=== PATIENT | female | born 1940 | race Caucasian/White ===

== ENCOUNTER 2017-06-05 14:48 | Emergency (ER) | payer MEDICARE, OTHER, SELFPAY ==
[2017-06-05 14:50] VITALS: BP 145/71; PULSE 80; RESP 16; TEMP 37; O2SAT 100; BMI 24.5
--- NOTE | 2017-06-05 15:03 | HMH.EDGENADL ---
ED Disposition Clinical Impression: Chest pain, atypical, Palpitations Disposition: Home, Self-Care Condition on Discharge: Good Instructions: DI for Atypical Chest Pain, DI for Arrhythmias, DI for Palpitations Additional Instructions: Call Dr. TAO tomorrow to arrange appointment to be seen, earliest available. Additional instructions for CHEST PAIN: See your physician as soon as possible for further evaluation. Return immediately if worsening chest pain, prolonged palpitations, vomiting, shortness of breath, fever, coughing of blood. Referrals: Provider,Referral, MD [Primary Care Provider] - - Critical Care Critical Care Time: No Attestation: On , the high probability of a clinically significant, sudden or life threatening deterioration of the following system(s) required my full and direct attention, intervention and personal management. The time I documented below is in addition to time spent performing reported procedures but includes the following listed in this critical care notation. Medical Decision Making Vital Signs: 06/05/17 14:50 06/05/17 16:05 Temperature 98.6 F Temperature Source Oral Pulse Rate [Right Radial] 80 71 Respiratory Rate 16 18 Blood Pressure [Right Arm] 145/71 94/50 Blood Pressure Mean [Right Arm] 95 64 Blood Pressure Source [Right Arm] Automatic Cuff Automatic Cuff Blood Pressure Position [Right Arm] Supine Supine 02 Sat by Pulse Oximetry 100 85 L Oxygen Delivery Method Room Air Room Air - Lab Data Lab Results 06/05/17 15:25: WBC 6.8, RBC 4.19 L, Hgb 13.4, Hct 39.5, MCV 94.2, MCH 31.9 H, MCHC 33.9, RDW 12.3, Plt Count 153, MPV 9.8, Neut % (Auto) 51.7, Lymph % (Auto) 41.9, [place] % (Auto) 5.6, Eos % (Auto) 0.6, Baso % (Auto) 0.2, Neut # (Auto) 3.5, Lymph # (Auto) 2.9, [place] # (Auto) 0.4, Eos # (Auto) 0.0, Baso # (Auto) 0.0 06/05/17 15:25: Sodium 139, Potassium 3.9, Chloride 104, Carbon Dioxide 31, Anion Gap 7.9, BUN 17, Creatinine 0.74, Estimated Creat Clear 46, Estimated GFR 77, Est GFR ( Amer) 93, Glucose 181 H, Calcium 8.9, Total Bilirubin 1.0, AST 13 L, ALT 28, Alkaline Phosphatase 93, Total Creatine Kinase 69, CK-MB (CK-2) 0.9, CK-MB (CK-2) Rel Index 1.3, Troponin I < 0.02, Total Protein 7.1, Albumin 3.6, Globulin 3.5 H, Albumin/Globulin Ratio 1.0 L 06/05/17 18:05: Troponin I < 0.02 Result diagrams: 06/05/17 15:25 06/05/17 15:25 Orders (Tests/Meds): ORDERS Category Date Time Status Chest XR 2 view (NOT portable) [XR chest 2V] Stat Exams 06/05/17 16:03 Taken ECG Request by /Ml Stat Y 06/05/17 16:03 Ordered - Radiology Data #1 Image(s): Chest Image Reviewed: Yes I reviewed the patient's radiology results Linear scarring or atelectasis left base. Kyphosis. - ECG Data Tracing #1 EKG interpreted by Kade Stout MD: Rhythm: sinus Rate: 96 Lyer[place]: normal Ectopy: none Conduction: normal ST Segment Changes: Nonspecific T Wave Changes: none Q Waves: none No evidence of acute ischemia or injury - Ollie Inquiry Pt receiving controlled substance: No Medical Decision Making Narrative: I estimate there is LOW risk for PULMONARY EMBOLISM, ACUTE CORONARY SYNDROME, OR THORACIC AORTIC DISSECTION, thus I consider the discharge disposition reasonable. Advised patient to follow-up with her hematology nurse for the chest discomfort for further workup and also for the episodes of palpitations that she has had which may indicate a recurrence of atrial flutter or fibrillation. General Adult HPI - General Stated complaint: Chest Discomfort - History of Present Illness HPI narrative: The patient complains of a vague mild chest discomfort that she says most resembles a pressure in her left anterior chest that started at 10 a.m., coming in all day. Slight shortness of breath. No nausea or diaphoresis, but says that she has some heartburn. Her heart feels like it is pounding harder than usual today, but not rapid or erratic. She can
--- NOTE | 2017-06-05 16:03 | XR_ITS ---
XR chest 2V HISTORY: Chest pain ITS.REASON: cp ORDERING PHYSICIAN: Kade Stout MD PATIENT AGE: 76 years COMPARISON: 04/16/2007 FINDINGS: The cardiomediastinal silhouette and pulmonary vascularity are within normal limits. The lungs are clear without infiltrates, suspicious nodules, or pleural effusions. Thoracic kyphosis and ankylosis. IMPRESSION: No acute finding
[2017-06-05 16:05] VITALS: BP 94/50; PULSE 71; RESP 18; O2SAT 85
[2017-06-05 16:22] LABS: Basophils % 0.2 % (0.1-2.0); Eosinophils % 0.6 % (0.1-12.0); Hematocrit 39.5 % (37.0-47.0); Hemoglobin 13.4 g/dL (12.2-16.2); Lymphocytes # 2.9 K/mm3 (0.7-4.5); Lymphocytes % 41.9 K/mm3 (10-50); Mean Corpuscular HGB Conc 33.9 g/dL (31.8-35.4); Mean Corpuscular Hemoglobin 31.9 pg (27.0-31.2); Mean Corpuscular Volume 94.2 fl (81-99); Mean Platelet Volume 9.8 fl (7.4-10.4); Monocytes # 0.4 K/mm3 (0.1-1.0); Monocytes % 5.6 % (1.7-9.3); Neutrophils # 3.5 K/mm3 (1.8-7.8); Neutrophils % 51.7 % (37.0-80.0); Platelet Count 153 K/mm3 (142-424); Red Blood Count 4.19 M/mm3 (4.20-5.40); Red Cell Distribution Width 12.3 % (11.5-17.5); White Blood Count 6.8 K/mm3 (4.8-10.8)
[2017-06-05 16:55] LABS: Alanine Aminotransferase 28 U/L (12-78); Albumin Level 3.6 gm/dL (3.4-5.0); Alkaline Phosphatase 93 U/L (46-116); Anion Gap 7.9 mEq/L (5-15); Aspartate Amino Transferase 13 U/L (15-37); Blood Urea Nitrogen 17 mg/dL (7-18); CKMB Relative Index 1.3 U/L (0-4.0); Calcium 8.9 mg/dL (8.5-10.1); Carbon Dioxide 31 mmol/L (21.0-32.0); Chloride 104 mmol/L (98-107); Creatine Kinase 69 U/L (26-192); Creatine Kinase MB 0.9 mg/ml (0.0-3.6); Creatinine Clearance Estimated 46 mL/min (0-300); Creatinine,Serum 0.74 mg/dL (0.55-1.02); Estimated Glomerular Filt Rate 77 ml/min (>60); GFR (African American) 93 ML/MIN (>60); Globulin 3.5 gm/dl (1.3-3.2); Glucose 181 mg/dL (74-106); Potassium 3.9 mmoL/L (3.5-5.1); Sodium 139 mmol/L (136-145); Total Protein,Serum 7.1 gm/dL (6.4-8.2); Troponin I < 0.02 ng/ml (0.00-0.06)
[2017-06-05 18:38] LABS: Troponin I < 0.02 ng/ml (0.00-0.06)
[2017-06-05 19:19] VITALS: BP 137/75; PULSE 73; RESP 16; TEMP 37; O2SAT 100
== END 2017-06-05 19:20 | disposition home or self-care (01) ==
PROVIDERS: Emergency Provider Emergency Medicine
DX: R07.89 Other chest pain (principal); R00.2 Palpitations; I48.92 Unspecified atrial flutter; K30 Functional dyspepsia; I10 Essential (primary) hypertension; Z88.2 Allergy status to sulfonamides; Z79.82 Long term (current) use of aspirin
CPT/HCPCS: 36415; 71046; 80053; 82550; 82553; 84484; 85025; 93005; 99282

== ENCOUNTER → 2017-06-13 10:45 | Outpatient (CLI) | payer MEDICARE, OTHER, SELFPAY ==
--- NOTE | 2017-06-13 10:48 | CT_ITS ---
CT heart w calcium score CLINICAL INDICATION: Palpitations, dyspnea, chest pain ORDERING PHYSICIAN: Tarun Murray MD PATIENT AGE: 76 years COMPARISON: None FINDINGS: Coronary artery calcium score is 310. This indicates moderate plaque burden with high cardiovascular disease risk. Calcific plaque is present in the LAD, circumflex, and RCA. IMPRESSION: High cardiovascular disease risk with coronary artery calcium score of 310
== END ==
PROVIDERS: PCP Internal Medicine; Visit Provider Internal Medicine
DX: R07.89 Other chest pain (principal); R06.00 Dyspnea, unspecified; K30 Functional dyspepsia; R00.2 Palpitations
CPT/HCPCS: 75571

== ENCOUNTER → 2017-06-15 06:56 | Outpatient (CLI) | payer MEDICARE, OTHER, SELFPAY ==
--- NOTE | 2017-06-15 07:01 | NM_ITS ---
CARDIOLITE SPECT MYOCARDIAL PERFUSION SCAN, REST AND STRESS: EXERCISE STRESS [facility] RE[facility] QGS EF AND WALL MOTION EVALUATION: QPS - PERFUSION EVALUATION HISTORY: Chest pain, Palpitations, HTN DOSE: 10.78 mCi technetium 99m mibi intravenously at rest followed by 31.2 mCi technetium 99m mibi following the intravenous ministration of 0.4 mg of Lexiscan. Resting blood pressure is 157/72. Stress blood pressure 136/63. FINDINGS: Ejection fraction is calculated to be 75%. Stress images reveal mildly decreased activity in the anterior wall while rest images reveal uniform myocardial activity. Gated images calculated ejection fraction of 75% with normal wall motion IMPRESSION: Reversible ischemia in the anterior wall with normal ejection fraction normal wall motion. Given the anterior wall involvement, this is a high risk abnormal stress test .
--- NOTE | 2017-06-15 07:37 | CA_ITS ---
PROCEDURE: 2-D M-mode and color Doppler study INDICATIONS FOR THE TEST: Chest pain X COPD Heart Murmur Tobacco Smoking Palpitations Fatigue Syncope Edema HypertensionXDiabetes Mellitus Rheumatic Fever SOB NGYUEN Obesity HyperlipidemiaX Family History HDX Additional History PATIENT INFORMATION HEIGHT: 61 WEIGHT:127 GENDER: Female B/P:157/72 2-D/M-MODE INTERPRETATION: 2-D MEASUREMENTS OBSERVED VALUES IN CMS Right Ventricular Dimension (RVDd) 2.0 Interventricular Septum (Thickness)(IVsd) .9 Left Ventricular Internal Dimensions(LVIDd) 3.8 Left Ventricular Posterior Wall (Thickness)(LVPWd) 1.0 Aortic Root 3.1 Aortic Cusp Separation 1.8 Left Atrial Dimensions (LAD) 4.4 2D 1. Left atrium is mildly enlarged, left ventricle is normal size, there is mild qualitative concentric left ventricular hypertrophy, visually estimated ejection fraction 55% with no obvious regional wall motion abnormality. 2. The right atrium and right ventricle are normal size and contractility. 3. The aortic valve is minimally thickened and fibrosed. 4. The mitral and tricuspid valve are grossly normal. 5. The pulmonic valve is poorly visualized. 6. No significant pericardial effusion noted. DOPPLER INTERROGATION: Doppler interrogation of the aortic mitral and tricuspid valvular presence of trace aortic , mild mitral and tricuspid regurgitation. Tricuspid regurgitant jet velocity is insufficient for calculation of the right ventricular systolic pressure, grade 1 diastolic dysfunction seen without tissue Doppler evidence of raised left atrial pressure. CONCLUSION: 1. Mildly enlarged left atrium, normal left ventricular size, mild qualitative concentric left ventricular hypertrophy, visually estimated ejection fraction 55% with no obvious regional wall motion abnormality, grade 1 diastolic dysfunction seen without tissue Doppler evidence of raised left atrial pressure. 2. Trace aortic, mild mitral and tricuspid regurgitation. 3. No significant pericardial effusion noted.
--- NOTE | 2017-06-15 10:14 | HMH.ITSHM ---
losartin metoprolol pravastatin aaspirin
== END ==
PROVIDERS: PCP Family Medicine; Visit Provider Internal Medicine
DX: R07.9 Chest pain, unspecified; R06.00 Dyspnea, unspecified; R00.2 Palpitations
CPT/HCPCS: 78452; 93017; 93306; A9502; J2785

== ENCOUNTER 2017-06-27 07:38 | Day surgery (SDC) | payer MEDICARE, OTHER, SELFPAY ==
[2017-06-27] VITALS (13 sets, daily range): BP systolic 94–158; BP diastolic 50–84; PULSE 49–65; RESP 18–20; TEMP 36.7; O2SAT 98–100; BMI 25.6; BMI 24.0
--- NOTE | 2017-06-27 | IR_ITS ---
CARDIAC CATHETERIZATION DATE OF CATHETERIZATION:06/27/2017 10:00 AM PROCEDURES: 1. Left heart catheterization 2. Left ventriculogram 3. Selective coronary angiogram INDICATION FOR TEST: 1. Abnormal Myoview 2. High calcium score greater than 300 3. Angina pectoris 4. Horn artery disease Informed consent was obtained prior to the procedure. COMPLICATIONS: None ESTIMATED BLOOD LOSS: Less than 10 ml. TECHNIQUE: One percent lidocaine used to anesthetize the right anterior aspect of the wrist. The right radial artery was accessed via the Seldinger technique. A 6 Niuean sheath was placed in the right radial artery. 2.5 mg of verapamil, 800 mcg of nitroglycerin and 5000 U Heparin were given through the arterial sheath. The trap catheter was also used to perform left heart catheterization and left ventriculography. At the end of the procedure the patient was transferred to the post-op holding area in stable condition for arterial sheath removal. ANGIOGRAPHIC RESULTS: 1. The left main artery normal 2. The left anterior descending artery has proximal 20% stenoses mid vessel 30-40% stenosis along a tortuous bend 3. The circumflex artery nondominant with mild 10% luminal irregularities 4. The right coronary artery is dominant and has an ostial calcified 40% nonflow limiting stenosis with 20% mid vessel stenoses 5. The FINCH ventriculogram reveals 65% 6. The left ventricular end-diastolic pressure 10 mmHg IMPRESSION: 1. Mild to moderate nonflow limiting coronary artery disease as described above 2. Normal ejection fraction 3. Mildly elevated LVEDP PLAN: 1. Aggressive risk factor modification 2. Medical management
[2017-06-27 08:29] LABS: Basophils % 0.6 % (0.1-2.0); Eosinophils # 0.1 K/mm3 (0.0-0.4); Eosinophils % 0.9 % (0.1-12.0); Hematocrit 42.7 % (37.0-47.0); Lymphocytes # 2.7 K/mm3 (0.7-4.5); Lymphocytes % 44.7 K/mm3 (10-50); Mean Corpuscular HGB Conc 32.7 g/dL (31.8-35.4); Mean Corpuscular Hemoglobin 31.6 pg (27.0-31.2); Mean Corpuscular Volume 96.7 fl (81-99); Monocytes # 0.3 K/mm3 (0.1-1.0); Monocytes % 5.6 % (1.7-9.3); Neutrophils # 2.9 K/mm3 (1.8-7.8); Neutrophils % 48.2 % (37.0-80.0); Platelet Count 148 K/mm3 (142-424); Red Blood Count 4.42 M/mm3 (4.20-5.40); Red Cell Distribution Width 12.3 % (11.5-17.5)
[2017-06-27 09:15] LABS: Anion Gap 11.4 mEq/L (5-15); Blood Urea Nitrogen 12 mg/dL (7-18); Carbon Dioxide 29 mmol/L (21.0-32.0); Chloride 106 mmol/L (98-107); Creatinine Clearance Estimated 45 mL/min (0-300); Creatinine,Serum 0.73 mg/dL (0.55-1.02); Estimated Glomerular Filt Rate 78 ml/min (>60); GFR (African American) 94 ML/MIN (>60); Glucose 105 mg/dL (74-106); Potassium 3.4 mmoL/L (3.5-5.1); Sodium 143 mmol/L (136-145)
[2017-06-27 09:39] LABS: Calcium 9.5 mg/dL (8.5-10.1); Phosphorous 3.9 mg/dL (2.4-4.9)
[2017-06-27 09:40] LABS: Alanine Aminotransferase 33 U/L (12-78); Albumin Level 3.9 gm/dL (3.4-5.0); Albumin/Globulin Ratio 1.1 (1.1-1.8); Aspartate Amino Transferase 22 U/L (15-37); Cholesterol 176 mg/dL (140-200); Globulin 3.6 gm/dl (1.3-3.2); Total Protein,Serum 7.5 gm/dL (6.4-8.2); Triglycerides 84 mg/dL (30-200); VLDL Cholesterol 17 mg/dL (0-40)
[2017-06-27 09:41] LABS: Alkaline Phosphatase 92 U/L (46-116); Chol/HDL Ratio 3.1 (1-3.5); HDL Cholesterol 56 mg/dL (29-89); LDL Cholesterol 103 mg/dL (0-130); Thyroid Stimulating Hormone 0.47 uIU/ml (0.358-3.740)
[2017-06-27 10:11] LABS: Hemoglobin A1C 5.3 % (0.0-7.0)
[2017-06-28 10:16] LABS: Creatinine, Urine 100.6 mg/dL (Not Estab.); Microalbumin, Urine 4.5 ug/mL (Not Estab.)
[2017-06-29 15:21] LABS: Parathyroid Hormone Intact 30 pg/mL (15-65)
== END 2017-06-27 14:01 | disposition home or self-care (01) ==
LOC: CATHLAB 07:41
PROVIDERS: PCP Family Medicine; Visit Provider Internal Medicine
DX: I25.119 Atherosclerotic heart disease of native coronary artery with unspecified angina pectoris (principal); Z79.899 Other long term (current) drug therapy; I10 Essential (primary) hypertension; R94.39 Abnormal result of other cardiovascular function study
CPT/HCPCS: 80053; 80061; 82043; 82570; 83036; 83970; 84100; 84443; 85025; 93458; C1725; C1769; J1644; Q9967

== ENCOUNTER → 2017-10-03 08:44 | Outpatient (CLI) | payer MEDICARE, OTHER, SELFPAY ==
[2017-10-03 10:13] LABS: Alanine Aminotransferase 27 U/L (12-78); Alkaline Phosphatase 97 U/L (46-116); Aspartate Amino Transferase 18 U/L (15-37); Bilirubin,Direct 0.2 mg/dL (0.0-0.2); Bilirubin,Total 1.2 mg/dL (0.2-1.0); Chol/HDL Ratio 3.7 (1-3.5); Cholesterol 190 mg/dL (140-200); HDL Cholesterol 52 mg/dL (29-89); LDL Cholesterol 123 mg/dL (0-130); Total Protein,Serum 7.3 gm/dL (6.4-8.2); Triglycerides 74 mg/dL (30-200); VLDL Cholesterol 15 mg/dL (0-40)
== END ==
PROVIDERS: PCP Family Medicine; Visit Provider Internal Medicine Cardiovascular Disease
DX: I25.10 Atherosclerotic heart disease of native coronary artery without angina pectoris (principal); E78.5 Hyperlipidemia, unspecified
CPT/HCPCS: 36415; 80061; 80076

== ENCOUNTER → 2017-10-23 11:39 | Outpatient (CLI) | payer MEDICARE, OTHER, SELFPAY ==
--- NOTE | 2017-10-23 11:44 | XR_ITS ---
XR knee RT 3V HISTORY: ITS.REASON: RT KNEE PAIN ORDERING PHYSICIAN: Israel Blanco MD PATIENT AGE: 77 years COMPARISON: None FINDINGS: Mild to moderate osteoarthritic changes involve the medial compartment with mild osteoarthritic changes of the patellofemoral joint. No fracture or dislocation. No lytic or blastic change. Generalized vascular calcification noted. IMPRESSION: Osteoarthritis
== END ==
PROVIDERS: PCP Family Medicine; Visit Provider Family Medicine
DX: M25.561 Pain in right knee (principal)
CPT/HCPCS: 73562

== ENCOUNTER → 2017-11-19 08:47 | Outpatient (CLI) | payer MEDICARE, OTHER, SELFPAY ==
[2017-11-19 10:21] LABS: Alanine Aminotransferase 29 U/L (12-78); Alkaline Phosphatase 103 U/L (46-116); Aspartate Amino Transferase 17 U/L (15-37); Bilirubin,Direct 0.2 mg/dL (0.0-0.2); Bilirubin,Indirect 1.2 mg/dL (0.0-0.9); Chol/HDL Ratio 3.6 (1-3.5); Cholesterol 194 mg/dL (140-200); HDL Cholesterol 54 mg/dL (29-89); LDL Cholesterol 124 mg/dL (0-130); Total Protein,Serum 7.3 gm/dL (6.4-8.2); Triglycerides 81 mg/dL (30-200); VLDL Cholesterol 16 mg/dL (0-40)
[2017-11-19 10:26] LABS: Bilirubin,Total 1.4 mg/dL (0.2-1.0)
[2017-11-19 14:14] LABS: Lactate Dehydrogenase 176 U/L (82-234)
[2017-11-22 07:02] LABS: Haptoglobin 177 mg/dL (34-200)
== END ==
PROVIDERS: Physician Assistant; Visit Provider Internal Medicine Cardiovascular Disease
DX: R07.89 Other chest pain (principal); E78.5 Hyperlipidemia, unspecified; I25.10 Atherosclerotic heart disease of native coronary artery without angina pectoris; Z87.898 Personal history of other specified conditions
CPT/HCPCS: 36415; 80061; 80076; 83010; 83615

== ENCOUNTER → 2018-01-23 08:47 | Outpatient (CLI) | payer MEDICARE, OTHER, SELFPAY ==
[2018-01-23 10:17] LABS: Alanine Aminotransferase 28 U/L (12-78); Albumin Level 3.9 gm/dL (3.4-5.0); Alkaline Phosphatase 105 U/L (46-116); Aspartate Amino Transferase 20 U/L (15-37); Bilirubin,Direct 0.2 mg/dL (0.0-0.2); Bilirubin,Indirect 1.2 mg/dL (0.0-0.9); Bilirubin,Total 1.4 mg/dL (0.2-1.0); Chol/HDL Ratio 3.1 (1-3.5); Cholesterol 178 mg/dL (140-200); HDL Cholesterol 57 mg/dL (29-89); LDL Cholesterol 109 mg/dL (0-130); Triglycerides 62 mg/dL (30-200); VLDL Cholesterol 12 mg/dL (0-40)
== END ==
PROVIDERS: PCP Family Medicine; Visit Provider Physician Assistant
DX: E78.5 Hyperlipidemia, unspecified (principal); I25.10 Atherosclerotic heart disease of native coronary artery without angina pectoris; R06.00 Dyspnea, unspecified; Z87.898 Personal history of other specified conditions
CPT/HCPCS: 36415; 80061; 80076

== ENCOUNTER → 2018-07-04 08:28 | Outpatient (CLI) | payer MEDICARE, OTHER, SELFPAY ==
[2018-07-04 08:55] LABS: Basophils % 0.3 % (0.1-2.0); Eosinophils # 0.1 K/mm3 (0.0-0.4); Hematocrit 43.4 % (37.0-47.0); Hemoglobin 14.3 g/dL (12.2-16.2); Lymphocytes % 38.2 % (10-50); Mean Corpuscular Hemoglobin 32.5 pg (27.0-31.2); Mean Corpuscular Volume 98.5 fl (81-99); Mean Platelet Volume 10.5 fl (7.4-10.4); Monocytes # 0.4 K/mm3 (0.1-1.0); Monocytes % 6.6 % (1.7-9.3); Neutrophils # 2.8 K/mm3 (1.8-7.8); Neutrophils % 53.8 % (37.0-80.0); Platelet Count 136 K/mm3 (142-424); Red Blood Count 4.41 M/mm3 (4.20-5.40); Red Cell Distribution Width 12.8 % (11.5-17.5); White Blood Count 5.2 K/mm3 (4.8-10.8)
[2018-07-04 09:19] LABS: Alanine Aminotransferase 31 U/L (12-78); Albumin/Globulin Ratio 1.3 (1.1-1.8); Alkaline Phosphatase 95 U/L (46-116); Anion Gap 11.9 mEq/L (5-15); Aspartate Amino Transferase 20 U/L (15-37); Bilirubin,Total 1.3 mg/dL (0.2-1.0); Blood Urea Nitrogen 18 mg/dL (7-18); Calcium 9.6 mg/dL (8.5-10.1); Carbon Dioxide 29 mmol/L (21.0-32.0); Chloride 106 mmol/L (98-107); Chol/HDL Ratio 2.5 (1-3.5); Cholesterol 150 mg/dL (140-200); Creatinine,Serum 0.67 mg/dL (0.55-1.02); Estimated Glomerular Filt Rate 86 ml/min (>60); GFR (African American) 104 ML/MIN (>60); Globulin 3.2 gm/dl (1.3-3.2); Glucose 101 mg/dL (74-106); HDL Cholesterol 59 mg/dL (29-89); Hemoglobin A1C 5.7 % (0.0-7.0); LDL Cholesterol 82 mg/dL (0-130); Phosphorous 4.2 mg/dL (2.4-4.9); Potassium 3.9 mmoL/L (3.5-5.1); Sodium 143 mmol/L (136-145); Thyroid Stimulating Hormone 1.57 uIU/ml (0.358-3.740); Total Protein,Serum 7.2 gm/dL (6.4-8.2); Triglycerides 46 mg/dL (30-200); VLDL Cholesterol 9 mg/dL (0-40)
[2018-07-04 09:38] LABS: Creatinine,Urine Random 126 mg/dL (20-320)
[2018-07-05 13:14] LABS: Parathyroid Hormone Intact 36 pg/mL (15-65)
== END ==
PROVIDERS: Visit Provider Family Medicine
DX: E78.00 Pure hypercholesterolemia, unspecified (principal); R73.01 Impaired fasting glucose; N28.9 Disorder of kidney and ureter, unspecified; I10 Essential (primary) hypertension
CPT/HCPCS: 36415; 80053; 80061; 82043; 82570; 83036; 83970; 84100; 84443; 85025

== ENCOUNTER → 2018-09-18 08:58 | Outpatient (CLI) | payer MEDICARE, OTHER, SELFPAY ==
[2018-09-18 10:16] LABS: Alanine Aminotransferase 39 U/L (12-78); Albumin Level 3.8 gm/dL (3.4-5.0); Alkaline Phosphatase 88 U/L (46-116); Aspartate Amino Transferase 25 U/L (15-37); Bilirubin,Direct 0.2 mg/dL (0.0-0.2); Bilirubin,Indirect 1.1 mg/dL (0.0-0.9); Bilirubin,Total 1.3 mg/dL (0.2-1.0); Chol/HDL Ratio 2.6 (1-3.5); Cholesterol 147 mg/dL (140-200); HDL Cholesterol 56 mg/dL (29-89); LDL Cholesterol 81 mg/dL (0-130); Total Protein,Serum 6.8 gm/dL (6.4-8.2); Triglycerides 52 mg/dL (30-200); VLDL Cholesterol 10 mg/dL (0-40)
== END ==
PROVIDERS: Visit Provider Internal Medicine Cardiovascular Disease
DX: E78.5 Hyperlipidemia, unspecified (principal)
CPT/HCPCS: 36415; 80061; 80076

== ENCOUNTER → 2019-06-02 09:03 | Outpatient (CLI) | payer MEDICARE, OTHER, SELFPAY ==
[2019-06-02 09:34] LABS: Basophils % 0.5 % (0.1-2.0); Eosinophils # 0.1 K/mm3 (0.0-0.4); Hematocrit 44.5 % (37.0-47.0); Hemoglobin 14.7 g/dL (12.2-16.2); Lymphocytes # 1.9 K/mm3 (0.7-4.5); Lymphocytes % 28.2 % (10-50); Mean Corpuscular Volume 96.9 fl (81-99); Mean Platelet Volume 10.1 fl (7.4-10.4); Monocytes # 0.3 K/mm3 (0.1-1.0); Monocytes % 4.4 % (1.7-9.3); Neutrophils # 4.5 K/mm3 (1.8-7.8); Neutrophils % 65.9 % (37.0-80.0); Platelet Count 136 K/mm3 (142-424); Red Cell Distribution Width 12.5 % (11.5-17.5); White Blood Count 6.9 K/mm3 (4.8-10.8)
[2019-06-02 10:40] LABS: Hemoglobin A1C 5.3 % (0.0-7.0)
[2019-06-02 10:46] LABS: Alanine Aminotransferase 30 U/L (9-52); Albumin Level 4.2 g/dL (3.4-5.0); Albumin/Globulin Ratio 1.3 (1.1-1.8); Alkaline Phosphatase 98 U/L (46-116); Aspartate Amino Transferase 26 U/L (15-37); Bilirubin,Total 1.2 mg/dL (0.2-1.0); Blood Urea Nitrogen 17 mg/dL (7-18); Calcium 9.8 mg/dL (8.5-10.1); Carbon Dioxide 30 mmol/L (21.0-32.0); Chloride 107 mmol/L (98-107); Chol/HDL Ratio 2.5 (1-3.5); Cholesterol 148 mg/dL (140-200); Creatinine,Serum 0.72 mg/dL (0.55-1.02); Estimated Glomerular Filt Rate 79 ml/min (>60); GFR (African American) 95 ML/MIN (>60); Globulin 3.2 gm/dl (1.3-3.2); Glucose 101 mg/dL (74-106); HDL Cholesterol 60 mg/dL (29-89); LDL Cholesterol 77 mg/dL (0-130); Phosphorous 4.3 mg/dL (2.4-4.9); Sodium 146 mmol/L (137-145); Thyroid Stimulating Hormone 0.77 uIU/ml (0.358-3.740); Total Protein,Serum 7.4 g/dL (6.4-8.2); Triglycerides 54 mg/dL (30-200); VLDL Cholesterol 11 mg/dL (0-40)
[2019-06-03 10:24] LABS: Microalbumin, Urine 8.2 ug/mL (Not Estab.)
[2019-06-06 07:51] LABS: Parathyroid Hormone Intact 19 pg/mL (15-65)
== END ==
PROVIDERS: Visit Provider Family Medicine
DX: N28.9 Disorder of kidney and ureter, unspecified (principal); E78.00 Pure hypercholesterolemia, unspecified; I10 Essential (primary) hypertension; R73.01 Impaired fasting glucose
CPT/HCPCS: 36415; 80053; 80061; 82043; 82570; 83036; 83970; 84100; 84443; 85025

== ENCOUNTER → 2019-06-19 19:27 | Outpatient (CLI) | payer MEDICARE, OTHER, SELFPAY | PROVIDERS: Visit Provider Nurse Practitioner | DX: B35.1 Tinea unguium (principal) | CPT/HCPCS: 87102; 87206; 87220 ==

== ENCOUNTER 2019-09-01 18:31 | Emergency (ER) | payer MEDICARE, OTHER, SELFPAY ==
[2019-09-01 18:32] VITALS: BP 135/86; PULSE 106; RESP 15; TEMP 36.8; O2SAT 96; BMI 21.4
--- NOTE | 2019-09-01 18:38 | ECG_ITS ---
APPROVED REPORT Exam: Resting ECG HR:104 bpm ECG Measurements Heart Rate 104 AXES QRSd 78 QRS 60 QT 314 T 22 QTc 412 <Conclusion> Atrial fibrillation with rapid ventricular response ST & T wave abnormality, consider inferior ischemia or digitalis effect ST & T wave abnormality, consider anterolateral ischemia or digitalis effect Abnormal ECG Electronically signed by : Eber Escobedo, 09/02/2019 08:50:44
--- NOTE | 2019-09-01 18:43 | XR_ITS ---
PROCEDURE: XR CHEST 2V CLINICAL HISTORY: fluttering Heart fluttering COMPARISON: CXR2V XR chest 2V from 06/05/2017 FINDINGS: The cardiomediastinal silhouette and pulmonary vascularity are within normal limits. The lungs are clear without infiltrates, suspicious nodules, or pleural effusions. Dextroscoliosis of the thoracic spine with levoscoliosis of the lumbar spine and thoracic kyphosis IMPRESSION: No acute finding Dictated by: Rodríguez Lopez MD 09/01/2019 20:52 Electronically signed by Rodríguez Lopez MD in [place] 09/01/2019 20:52
[2019-09-01 18:52] LABS: Basophils # 0.1 K/mm3 (0-0.2); Basophils % 1.1 % (0.1-2.0); Eosinophils # 0.1 K/mm3 (0.0-0.4); Eosinophils % 1.1 % (0.1-12.0); Hemoglobin 14.6 g/dL (12.2-16.2); Lymphocytes # 3.4 K/mm3 (0.7-4.5); Lymphocytes % 37.7 % (10-50); Mean Corpuscular HGB Conc 33.1 g/dL (31.8-35.4); Mean Corpuscular Hemoglobin 31.5 pg (27.0-31.2); Mean Corpuscular Volume 95.1 fl (81-99); Monocytes # 0.5 K/mm3 (0.1-1.0); Monocytes % 5.7 % (1.7-9.3); Neutrophils # 4.9 K/mm3 (1.8-7.8); Neutrophils % 54.3 % (37.0-80.0); Platelet Count 156 K/mm3 (142-424); Red Blood Count 4.63 M/mm3 (4.20-5.40); Red Cell Distribution Width 12.8 % (11.5-17.5)
--- NOTE | 2019-09-01 18:53 | PC.NURSE ---
Pt with Rad.
[2019-09-01 19:02] LABS: Alanine Aminotransferase 28 U/L (12-78); Albumin Level 4.8 g/dl (3.5-5.0); Albumin/Globulin Ratio 1.5 (1.1-1.8); Alkaline Phosphatase 84 U/L (38-126); Anion Gap 10.6 mEq/L (5-15); Aspartate Amino Transferase 36 U/L (14-36); Bilirubin,Total 1.1 mg/dl (0.2-1.3); Blood Urea Nitrogen 25 mg/dl (7-17); Carbon Dioxide 27 mmol/L (22.0-30.0); Chloride 101 mmol/L (98-107); Creatinine Clearance Estimated 39 mL/min (50-200); Estimated Glomerular Filt Rate 61 ml/min (>60); GFR (African American) 73 ML/MIN (>60); Globulin 3.2 g/dL (1.3-3.2); Glucose 137 mg/dl (74-100); Potassium 3.6 mmoL/L (3.5-5.1); Sodium 135 mmol/L (136-145)
[2019-09-01 19:19] LABS: T4 (Thyroxine) 10.3 ug/dl (5.53-11.0)
[2019-09-01 19:21] VITALS: BP 128/97; PULSE 106; O2SAT 100
[2019-09-01 19:32] LABS: Thyroid Stimulating Hormone 1.93 uIU/mL (0.465-4.68); Troponin I < 0.01 ng/ml (0.00-0.034)
--- NOTE | 2019-09-01 19:39 | PC.NURSE ---
Dr Copeland spoke with Dr Murray
--- NOTE | 2019-09-01 19:44 | PC.NURSE ---
spoke with Dr. Murray. he stated to give pt 50mg metoprolol tatrate and he would see them in the office in the morning.
--- NOTE | 2019-09-01 19:44 | HMH.EDARPALP ---
ED Disposition Clinical Impression: Atrial fibrillation Disposition: Home, Self-Care Condition on Discharge: Good Additional Instructions: Please follow-up with Dr. Murray tomorrow morning at 8:30 in the morning. Referrals: Israel Blanco MD [Primary Care Provider] - - Critical Care Critical Care Time: No Attestation: On 09/01/19, the high probability of a clinically significant, sudden or life threatening deterioration of the following system(s) required my full and direct attention, intervention and personal management. The time I documented below is in addition to time spent performing reported procedures but includes the following listed in this critical care notation. Medical Decision Making - Medical Records Medical records reviewed: Yes: I reviewed the patient's medical records. - Ollie Inquiry Pt receiving controlled substance: No Vital Signs: 09/01/19 18:32 09/01/19 19:21 Temperature 98.2 F Temperature Source Oral Pulse Rate [Right] 106 H 106 H Respiratory Rate 15 Blood Pressure [Right Arm] 135/86 128/97 H Blood Pressure Mean [Right Arm] 102 107 Blood Pressure Source [Right Arm] Automatic Cuff Blood Pressure Position [Right Arm] Supine 02 Sat by Pulse Oximetry 96 100 Oxygen Delivery Method Room Air Room Air - Lab Data Lab results reviewed: Yes: I reviewed the patient's lab results. Lab Results 09/01/19 18:45: WBC 9.0, RBC 4.63, Hgb 14.6, Hct 44.0, MCV 95.1, MCH 31.5 H, MCHC 33.1, RDW 12.8, Plt Count 156, MPV 10.0, Neut % (Auto) 54.3, Lymph % (Auto) 37.7, [place] % (Auto) 5.7, Eos % (Auto) 1.1, Baso % (Auto) 1.1, Neut # (Auto) 4.9, Lymph # (Auto) 3.4, [place] # (Auto) 0.5, Eos # (Auto) 0.1, Baso # (Auto) 0.1 09/01/19 18:45: Sodium 135 L, Potassium 3.6, Chloride 101, Carbon Dioxide 27, Anion Gap 10.6, BUN 25 H, Creatinine 0.90, Estimated Creat Clear 39, Estimated GFR 61, Est GFR ( Amer) 73, Glucose 137 H, Calcium 10.0, Total Bilirubin 1.1, AST 36, ALT 28, Alkaline Phosphatase 84, Troponin I < 0.01, Total Protein 8.0, Albumin 4.8, Globulin 3.2, Albumin/Globulin Ratio 1.5, TSH 1.93, Thyroxine (T4) 10.3 Result diagrams: 09/01/19 18:45 09/01/19 18:45 Orders (Tests/Meds): ED MEDICATIONS Generic Name Dose Route Start Last Admin Trade Name Freq PRN Reason Stop Dose Admin Sodium Chloride 1,000 mls @ 999 mls/hr 09/01/19 18:45 09/01/19 18:45 Sod Chlor 0.9% 1000ml Bag IV 09/01/19 19:45 999 mls/hr .Q1H1M MAGDALENA Administration Discontinued Medications Generic Name Dose Route Start Last Admin Trade Name Freq PRN Reason Stop Dose Admin Metoprolol Tartrate 50 mg 09/01/19 19:43 Lopressor 50mg Tablet PO 09/01/19 19:44 ONCE ONE ORDERS Category Date Time Status XR chest 2V Stat Exams 09/01/19 18:43 Taken Troponin I Q3H Lab 09/01/19 21:45 Ordered Troponin I Q3H Lab 09/02/19 00:45 Ordered ECG Request by /Nse Stat Y 09/01/19 18:43 Ordered - Radiology Data #1 Image(s): Chest Preliminary Findings: Normal/NAD - ECG Data Tracing #1 I reviewed this ECG and interpreted as documented below: Normal Sinus Rhythm: No Arrhythmias present: afib Medical Decision Narrative: I spoke to Dr. Murray the phone about this patient and he recommended giving her a 50 mg metoprolol this evening and then have her follow-up with him in his office tomorrow at 830 for medication management for her A. fib. Arrhythmia/Palpitations HPI - General Chief Complaint: Arrhythmia/Palpitations Stated Complaint: irregular heart rate Time Seen by Provider: 09/01/19 19:20 Mode of Arrival: Ambulatory Source of Information: Patient Limitations: No Limitations - History of Present Illness HPI narrative: A pleasant 79-year-old female presents the ED complaining of heart fluttering. She states of the last 24 hours she is felt her heart rate a little elevated than usual. She states that she usually in the 70s and 80s but it has been about 1 10-1 20 most the d
[2019-09-01 19:46] VITALS: BP 105/65; PULSE 111; RESP 16; TEMP 36.9; O2SAT 100
== END 2019-09-01 19:59 | disposition home or self-care (01) ==
PROVIDERS: Emergency Provider Family Medicine; PCP Family Medicine
DX: I48.20 Chronic atrial fibrillation, unspecified (principal); E78.5 Hyperlipidemia, unspecified; I10 Essential (primary) hypertension; Z88.2 Allergy status to sulfonamides; Z79.899 Other long term (current) drug therapy
CPT/HCPCS: 71046; 80053; 84436; 84443; 84484; 85025; 93005; 96365; 99283

== ENCOUNTER → 2019-09-09 07:02 | Outpatient (CLI) | payer MEDICARE, OTHER, SELFPAY ==
--- NOTE | 2019-09-09 | CA_ITS ---
APPROVED REPORT Exam: Pharmacologic Technologist: Quyen Ford Ht: 5 ft 2 in Wt: 115 lbs BSA: 1.51 m2 HR: 85 bpm BP: 138/77 mmHg Indications: Shortness of Breath, Atrial Fibrillation Medical History Medications: Aspirin,,,,, Metoprolol,,,,, Atorvastatin,,,,, Apixaban,,,,, Stress Test Details Test: LEXISCAN HR Resting HR: 89 bpm Max Heart Rate (APMHR): 143 bpm Max HR Achieved: 140 bpm Target HR (85% APMHR): 121 bpm % of APMHR: 97 Recovery HR: 109 bpm BP Resting BP: 138.0/77.0 mmHg Max BP: 138.0/77.0 mmHg Recovery BP: 134.0/63.0 mmHg ECG Clinical Exercise duration: 04:14 min Highest Stage Achieved: Exercise capacity: 1.0 METs Stress ECG Conclusion Resting ECG: Atrial fibrillation, NS ST-T abnormalities. Symptoms: Shortness of air, malaise. No chest pain. Arrhythmias/Ectopy: Atrial fibrillation throughout. Occasional abberant beats vs. PVCs. ST-T Changes: Exaggeration of baseline ST abnormalities. Conclusion: Unremarkable Lexiscan stress. Myoview images reported separately. Electronically signed by : Malcolm Pettit, 09/09/2019 19:57:27
--- NOTE | 2019-09-09 07:04 | CA_ITS ---
APPROVED REPORT EXAM: Comprehensive 2D, Doppler, and color-flow Echocardiogram Ground Support Equipment Assembler: Evelin Varela CRT Ht: 5 ft 0 in Wt: 118lbs BSA: 1.49 BP: 148/49 mmHg Indications: htn, palp, sob, hld, afib, cad, dizziness 2D Dimensions IVSd 0.60 cm LVEF (Visual) 23.20 % PWd 2.20 cm LVDd 2.30 cm LVDs 2.50 cm LVOT 1.80 cm (M/F) 1.5-2.5 M-Mode Dimensions LA Diam 4.30 cm (1.9-4.0) Ao Diam 3.20 cm (2.0-3.7) AV Cusp 1.90 cm (1.5-2.6) Aortic Valve AoV Peak Tommy. 116.00 (50-130 cm/s) AO Peak GR. 5.00 mmHg Pulmonary Valve PA Accel Time 123.00 (>120 msec) Tricuspid Valve TR P. Velocity 185.00 cm/s RAP Estimate 10.00 mmHg RVSP 24.00 mmHg Left Ventricle Left atrium is mildly enlarged, left ventricle is normal size, mild concentric left ventricular hypertrophy, visually estimated ejection fraction of 55% with no regional wall motion abnormality, diastolic parameters are inconclusive. Right Ventricle Right atrium is mildly enlarged, right ventricle is normal size and contractility. Aortic Valve Aortic valve is minimally thickened and fibrosed. There is no aortic stenosis aortic insufficiency. Mitral Valve Mitral valve is grossly normal, there is mild mitral regurgitation. Tricuspid Valve Tricuspid valve is grossly normal, there is mild tricuspid regurgitation, tricuspid regurgitation jet velocity is inadequate for calculation of the right ventricular systolic pressure. Pulmonic Valve Pulmonic valve is poorly visualized. Great Vessels Aortic root is normal size. Pericardium No significant pericardial effusion noted. Conclusion 1. Biatrial enlargement, normal left ventricular size, mild concentric left ventricular hypertrophy, visually estimated ejection fraction 55% with no regional wall motion abnormality, diastolic parameters are inconclusive. 2. Mild mitral and tricuspid regurgitation. 3. No significant pericardial effusion noted. Electronically signed by : Malcolm Pettit, 09/09/2019 19:49:32
--- NOTE | 2019-09-09 07:08 | NM_ITS ---
APPROVED REPORT Exam: Nuclear Stress Test Indication: SOB, Palpitations, HTN, High cholesterol, Family history, AFIB Patient Location: Outpatient Stress Tech: Quyen Ford NM Tech:Alma Rosa Chan, ARRT, RT (R)(N) Ht: 5 ft 2 in Wt: 115 lbs Bra Size: 38B HR: 85 bpm BP: 138/77 mmHg BSA: 1.51 m2 BMI: 21.0 History: SOB, Palpitations, HTN, High cholesterol, Family history, AFIB Procedure: Patient received a 0.4 mg of intravenous Lexiscan, resting heart rate 85 bpm, resting blood pressure 138/77 mmHg, with Lexiscan maximum heart rate achived was 118 bpm which is Less than 85 % of the maximum predicted heart rate and blood pressure was 116/63 mmHg. With Lexiscan, patient denied any complaint of chest pain. Electrocardiogram Resting electrocardiogram showed atrial fibrillation, nonspecific ST-T changes, with Lexiscan there is less than 1.[address] segment depression noted from the baseline EKG. The EKG portion of the Lexiscan Myoview is nondiagnostic. Cardiac Stress and Resting SPECT Images: Cardiac Stress and Resting SPECT images were obtained using technetium 99m Myoview 32.0 mCi stress and 10.12 mCi at rest. Gated SPECT for analysis of segmental wall motion and calculation of the ejection fraction also done. Cardiac stress and resting SPECT images show mild reversible ischemia involving the anterior apical wall, computer derived ejection fraction is 61% with no regional wall motion abnormality, right ventricle is normal size and contractility. Conclusion: 1. The EKG portion of the Lexiscan Myoview is nondiagnostic. 2. Scintigraphic evidence of mild reversible ischemia involving the anterior apical wall, computer derived ejection fraction is 61% with no regional wall motion abnormality, right ventricle is normal size and contractility. 3. Abnormal Lexiscan Myoview study. Electronically signed by : Malcolm Pettit, 09/09/2019 19:59:43
--- NOTE | 2019-09-09 09:02 | HMH.ITSHM ---
Current Home Medications as stated by this patient Kiara Orozco or promotional representative. []METOPROLOL COENZYME CALCIUM ASA APIXABAN ATORVASTATIN
== END ==
PROVIDERS: PCP Family Medicine; Visit Provider Nurse Practitioner Family
DX: E78.5 Hyperlipidemia, unspecified (principal); I11.9 Hypertensive heart disease without heart failure; I25.10 Atherosclerotic heart disease of native coronary artery without angina pectoris; I48.0 Paroxysmal atrial fibrillation; R00.2 Palpitations
CPT/HCPCS: 78452; 93017; 93306; A9502; J2785

== ENCOUNTER → 2019-09-30 09:40 | Outpatient (POV) | payer MEDICARE, OTHER, SELFPAY | PROVIDERS: PCP Family Medicine; Visit Provider Physician Assistant | DX: Z00.00 Encounter for general adult medical examination without abnormal findings (principal) ==

== ENCOUNTER → 2019-11-11 09:46 | Outpatient (POV) | payer MEDICARE, OTHER, SELFPAY | PROVIDERS: PCP Family Medicine; Visit Provider Dermatology | DX: Z00.00 Encounter for general adult medical examination without abnormal findings (principal) ==

== ENCOUNTER 2020-04-12 15:29 | Emergency (ER) | payer MEDICARE, OTHER, SELFPAY ==
[2020-04-12] VITALS (8 sets, daily range): BP systolic 93–148; BP diastolic 49–76; PULSE 59–66; RESP 16; TEMP 36.8–36.9; O2SAT 97–100; BMI 21.0
--- NOTE | 2020-04-12 15:22 | ECG_ITS ---
APPROVED REPORT Exam: Resting ECG HR:61 bpm ECG Measurements Heart Rate 61 AXES AL 140 P 102 QRSd 76 QRS 54 QT 406 T 46 QTc 408 Conclusion Normal sinus rhythm Late r wave progression - unchanged from prior Abnormal ECG Electronically signed by : Wilner Hussein, 04/13/2020 19:56:35
--- NOTE | 2020-04-12 15:37 | XR_ITS ---
PROCEDURE: XR CHEST PORTABLE Referring Doctor: Radu Ashby Patient Age:79Y CLINICAL HISTORY: chest feels funny COMPARISON: CR CXR2V XR chest 2V from 06/05/2017 CR XR CHEST 2V from 09/01/2019 FINDINGS: AP portable upright CXR performed today compared to 09/01/19 P CXR and May 2017 two view CXR Today's chest film with slightly higher contrast technique which is 60 which markings but Left lung well expanded and clear Right lung but slight coarsening markings towards right base in part reflection technique overlying breast density. Most likely reflecting stable features but is difficult totally exclude a very subtle infiltrate towards right base but The upper lung [place] appear slightly hyperexpanded which may reflect emphysematous changes, heart, juliano, mediastinal structures unremarkable chest wall unremarkable. No pleural effusion or pneumothorax. Mild/moderate dextrocurvature lower T-spine again noted IMPRESSION: Nothing definitely acute. There is slight accentuation markings towards the right lung base which suspect combination of chronic changes, overlying breast, and of energy control officer technique today. However if respiratory symptoms or cough persist consider follow-up as it is difficult to exclude a very early infiltrate right base Dictated by: Lawrence Melendez MD 04/12/2020 20:43 Lawrence Melendez MD in [place] 04/12/2020 20:43
[2020-04-12 15:43] LABS: Basophils # 0.1 K/mm3 (0-0.2); Basophils % 0.6 % (0.1-2.0); Eosinophils # 0.1 K/mm3 (0.0-0.4); Eosinophils % 1.7 % (0.1-12.0); Hematocrit 45.8 % (37.0-47.0); Hemoglobin 15.6 g/dL (12.2-16.2); Lymphocytes # 2.7 K/mm3 (0.7-4.5); Lymphocytes % 36.3 % (10-50); Mean Corpuscular Hemoglobin 33.5 pg (27.0-31.2); Mean Corpuscular Volume 98.3 fl (81-99); Monocytes # 0.5 K/mm3 (0.1-1.0); Monocytes % 6.5 % (1.7-9.3); Platelet Count 121 K/mm3 (142-424); Red Blood Count 4.66 M/mm3 (4.20-5.40); Red Cell Distribution Width 13.3 % (11.5-17.5); White Blood Count 7.3 K/mm3 (4.8-10.8)
[2020-04-12 15:47] LABS: Chloride 103 mmol/L (98-107); Potassium 3.8 mmoL/L (3.5-5.1); Sodium 138 mmol/L (136-145)
[2020-04-12 15:50] LABS: Blood Urea Nitrogen 18 mg/dl (7-17); Creatinine Clearance Estimated 39 mL/min (50-200); Estimated Glomerular Filt Rate 97 ml/min (>60); GFR (African American) 117 ML/MIN (>60)
[2020-04-12 15:51] LABS: Anion Gap 11.8 mEq/L (5-15); Calcium 9.9 mg/dl (8.4-10.2); Carbon Dioxide 27 mmol/L (22.0-30.0); Glucose 147 mg/dl (74-100)
[2020-04-12 16:02] LABS: Troponin I < 0.01 ng/ml (0.00-0.034)
[2020-04-12 16:22] LABS: Magnesium 2.1 mg/dl (1.6-2.3)
[2020-04-12 16:26] LABS: D-Dimer 0.59 ug/mL (0.15-8.0)
--- NOTE | 2020-04-12 18:07 | HMH.EDARPALP ---
ED Disposition Clinical Impression: Palpitations, Orthostasis, Dehydration Disposition: Home, Self-Care Condition on Discharge: Good Instructions: DI for Orthostatic Hypotension Additional Instructions: Call your primary care Dr. Blanco's office tomorrow first thing in the morning and schedule a follow-up appointment within the next 2 days. Continue taking your medications as prescribed. Increase oral hydration and return to the ED for any new or worsening symptoms. Referrals: Israel Blanco MD [Primary Care Provider] - - Critical Care Critical Care Time: No Attestation: On 04/12/20, the high probability of a clinically significant, sudden or life threatening deterioration of the following system(s) required my full and direct attention, intervention and personal management. The time I documented below is in addition to time spent performing reported procedures but includes the following listed in this critical care notation. Medical Decision Making - Medical Records Medical records reviewed: Yes: I reviewed the patient's medical records. - Ollie Inquiry Pt receiving controlled substance: No Vital Signs: 04/12/20 15:30 04/12/20 15:32 04/12/20 16:00 Temperature 98.2 F Temperature Source Oral Pulse Rate Pulse Rate [Right] 63 66 59 L Respiratory Rate 16 Blood Pressure Blood Pressure [Right Arm] 148/76 H 148/76 H 137/63 Blood Pressure Mean [Right Arm] 100 100 87 Blood Pressure Source Blood Pressure Source [Right Arm] Automatic Cuff Automatic Cuff Automatic Cuff Blood Pressure Position Blood Pressure Position [Right Arm] Sitting Sitting Sitting 02 Sat by Pulse Oximetry 100 98 97 Oxygen Delivery Method Room Air Room Air Room Air 04/12/20 16:30 04/12/20 17:00 04/12/20 17:30 Temperature Temperature Source Pulse Rate Pulse Rate [Right] 63 62 60 Respiratory Rate Blood Pressure Blood Pressure [Right Arm] 147/72 H 106/49 L 109/52 L Blood Pressure Mean [Right Arm] 97 68 71 Blood Pressure Source Blood Pressure Source [Right Arm] Automatic Cuff Automatic Cuff Automatic Cuff Blood Pressure Position Blood Pressure Position [Right Arm] Sitting Sitting Sitting 02 Sat by Pulse Oximetry 99 98 100 Oxygen Delivery Method Room Air Room Air Room Air 04/12/20 18:00 04/12/20 18:25 Temperature 98.4 F Temperature Source Oral Pulse Rate 62 Pulse Rate [Right] 59 L Respiratory Rate 16 Blood Pressure 110/70 Blood Pressure [Right Arm] 93/50 L Blood Pressure Mean [Right Arm] 64 Blood Pressure Source Automatic Cuff Blood Pressure Source [Right Arm] Automatic Cuff Blood Pressure Position Sitting Blood Pressure Position [Right Arm] Sitting 02 Sat by Pulse Oximetry 97 Oxygen Delivery Method Room Air Room Air - Lab Data Lab Results 04/12/20 15:20: WBC 7.3, RBC 4.66, Hgb 15.6, Hct 45.8, MCV 98.3, MCH 33.5 H, MCHC 34.0, RDW 13.3, Plt Count 121 L, MPV 10.0, Neut % (Auto) 55.0, Lymph % (Auto) 36.3, [place] % (Auto) 6.5, Eos % (Auto) 1.7, Baso % (Auto) 0.6, Neut # (Auto) 4.0, Lymph # (Auto) 2.7, [place] # (Auto) 0.5, Eos # (Auto) 0.1, Baso # (Auto) 0.1 04/12/20 15:20: Sodium 138, Potassium 3.8, Chloride 103, Carbon Dioxide 27, Anion Gap 11.8, BUN 18 H, Creatinine 0.60, Estimated Creat Clear 39, Estimated GFR 97, Est GFR ( Amer) 117, Glucose 147 H, Calcium 9.9, Troponin I < 0.01 04/12/20 15:20: D-Dimer 0.59 04/12/20 15:20: Magnesium 2.1 Result diagrams: 04/12/20 15:20 04/12/20 15:20 Orders (Tests/Meds): ED MEDICATIONS Discontinued Medications Generic Name Dose Route Start Last Admin Trade Name Duaneq PRN Reason Stop Dose Admin Sodium Chloride 500 mls @ 999 mls/hr 04/12/20 16:00 04/12/20 16:44 Sod Chlor 0.9% 1000ml Bag IV 04/12/20 16:30 999 mls/hr .Q31M MAGDALENA Administration - Radiology Data #1 Image(s): Chest Image Reviewed: Yes I reviewed the patient's radiology image Preliminary Findings: Normal/NAD (Right lower lobe atelectasis but
--- NOTE | 2020-04-12 18:09 | PC.NURSE ---
speaking with Dr. Rodríguez
--- NOTE | 2020-04-12 22:52 | ECG_ITS ---
APPROVED REPORT Exam: Resting ECG HR:65 bpm ECG Measurements Heart Rate 65 AXES [place] 136 P 10 QRSd 82 QRS 61 QT 396 T 48 QTc 411 Conclusion Normal sinus rhythm normal ECG Electronically signed by : Wilner Hussein, 04/13/2020 19:54:42
== END 2020-04-12 18:27 | disposition home or self-care (01) ==
PROVIDERS: Emergency Provider Student in an Organized Health Care Education/Training Program; PCP Family Medicine
DX: I95.1 Orthostatic hypotension (principal); R00.2 Palpitations; E86.0 Dehydration; I48.20 Chronic atrial fibrillation, unspecified; I10 Essential (primary) hypertension; E78.5 Hyperlipidemia, unspecified; Z88.2 Allergy status to sulfonamides; Z79.899 Other long term (current) drug therapy
CPT/HCPCS: 71045; 80048; 83735; 84484; 85025; 85378; 93005; 96365; 99283

== ENCOUNTER 2020-04-12 22:43 | Emergency (ER) | payer MEDICARE, OTHER, SELFPAY ==
[2020-04-12 22:44] VITALS: BP 157/76; PULSE 69; RESP 16; TEMP 36.7; O2SAT 98; BMI 27.4
--- NOTE | 2020-04-12 23:08 | HMH.EDGENADL ---
ED Disposition Clinical Impression: PAF (paroxysmal atrial fibrillation) Disposition: Home, Self-Care Condition on Discharge: Good Additional Instructions: Follow up with scrubber machine tender as an outpatient. If unable to see scrubber machine tender within the next week, arrange appointment with PCP. Continue to take metoprolol as previously prescribed. Referrals: Israel Blanco MD [Primary Care Provider] - Malcolm Pettit MD [Staff Physician] - - Critical Care Critical Care Time: No Attestation: On 04/12/20, the high probability of a clinically significant, sudden or life threatening deterioration of the following system(s) required my full and direct attention, intervention and personal management. The time I documented below is in addition to time spent performing reported procedures but includes the following listed in this critical care notation. Medical Decision Making - Medical Records Medical records reviewed: Yes: I reviewed the patient's medical records. - Ollie Inquiry Pt receiving controlled substance: No Vital Signs: 04/12/20 22:44 Temperature 98.1 F Temperature Source Oral Pulse Rate [Apical] 69 Respiratory Rate 16 Blood Pressure [Right Arm] 157/76 H Blood Pressure Mean [Right Arm] 103 Blood Pressure Source [Right Arm] Automatic Cuff Blood Pressure Position [Right Arm] Supine 02 Sat by Pulse Oximetry 98 Oxygen Delivery Method Room Air - Lab Data Lab Results 04/12/20 22:55: WBC 8.4, RBC 4.88, Hgb 16.0, Hct 48.2 H, MCV 98.9, MCH 32.8 H, MCHC 33.2, RDW 13.2, Plt Count 135 L, MPV 9.9, Neut % (Auto) 49.4, Lymph % (Auto) 41.5, [place] % (Auto) 7.2, Eos % (Auto) 1.4, Baso % (Auto) 0.6, Neut # (Auto) 4.2, Lymph # (Auto) 3.5, [place] # (Auto) 0.6, Eos # (Auto) 0.1, Baso # (Auto) 0.1 04/12/20 22:55: Sodium 140, Potassium 3.5, Chloride 106, Carbon Dioxide 28, Anion Gap 9.5, BUN 14, Creatinine 0.70, Estimated Creat Clear 51, Estimated GFR 81, Est GFR ( Amer) 98, Glucose 118 H, Calcium 10.2, Troponin I < 0.01, Thyroxine (T4) 10.0 Result diagrams: 04/12/20 22:55 04/12/20 22:55 Orders (Tests/Meds): ORDERS Category Date Time Status Basic Metabolic Panel Stat Lab 04/12/20 22:55 Results T4 (Thyroxine) Stat Lab 04/12/20 22:55 Results Thyroid Stimulating Hormone Stat Lab 04/12/20 22:55 Results Troponin I Q3H Lab 04/13/20 02:15 Ordered Troponin I Q3H Lab 04/13/20 05:15 Ordered Troponin I Stat Lab 04/12/20 22:55 Results Medical Decision Narrative: 79-year-old female brought into emergency department for evaluation of palpitations. Hemodynamically stable nontoxic in appearance upon arrival. EKG obtained immediately upon arrival which was negative for ST elevation, ST depression, or T wave abnormalities concerning for ACS. EKG shows normal sinus rhythm with no PVCs or abnormal beats/rhythm. Differential diagnosis includes was not limited to intermittent A. fib, electrolyte abnormality causing PVCs, myocardial infarction, hypothyroidism. Labs obtained including CBC, BMP, TSH, T4, and troponin. Labs reviewed and significant for no acute abnormalities requiring correction at this time the emergency department. Troponin negative. Advised on strict return precautions and the importance of following up with scrubber machine tender within the next week. Provided patient with referral to cardiology. Patient voiced understanding and is safe to discharge at this time with family for transport. General Adult HPI - General Chief complaint: Arrhythmia/Palpitations Stated complaint: palpitations longer than 5 minutes Time Seen by Provider: 04/12/20 22:45 Mode of Arrival: Ambulatory Source of Information: Patient, Relative Limitations: No Limitations Description of Symptoms (Recalled from ER Triage Doc. by RN): Pt was seen today in this ED for same complaints of heart skipping beats and chest pressure that pt rates a 5 out of 10 that comes and goes. Pt states these symptoms have been going on for a month or so . P
[2020-04-12 23:14] VITALS: BP 119/62; PULSE 61; RESP 16; O2SAT 99
[2020-04-12 23:16] LABS: Basophils # 0.1 K/mm3 (0-0.2); Basophils % 0.6 % (0.1-2.0); Eosinophils # 0.1 K/mm3 (0.0-0.4); Eosinophils % 1.4 % (0.1-12.0); Hematocrit 48.2 % (37.0-47.0); Lymphocytes # 3.5 K/mm3 (0.7-4.5); Lymphocytes % 41.5 % (10-50); Mean Corpuscular HGB Conc 33.2 g/dL (31.8-35.4); Mean Corpuscular Hemoglobin 32.8 pg (27.0-31.2); Mean Corpuscular Volume 98.9 fl (81-99); Mean Platelet Volume 9.9 fl (7.4-10.4); Monocytes # 0.6 K/mm3 (0.1-1.0); Monocytes % 7.2 % (1.7-9.3); Neutrophils # 4.2 K/mm3 (1.8-7.8); Neutrophils % 49.4 % (37.0-80.0); Platelet Count 135 K/mm3 (142-424); Red Blood Count 4.88 M/mm3 (4.20-5.40); Red Cell Distribution Width 13.2 % (11.5-17.5); White Blood Count 8.4 K/mm3 (4.8-10.8)
[2020-04-12 23:18] LABS: Chloride 106 mmol/L (98-107); Sodium 140 mmol/L (136-145)
[2020-04-12 23:19] LABS: Potassium 3.5 mmoL/L (3.5-5.1)
[2020-04-12 23:21] LABS: Blood Urea Nitrogen 14 mg/dl (7-17); Creatinine Clearance Estimated 51 mL/min (50-200); Estimated Glomerular Filt Rate 81 ml/min (>60); GFR (African American) 98 ML/MIN (>60)
[2020-04-12 23:22] LABS: Anion Gap 9.5 mEq/L (5-15); Calcium 10.2 mg/dl (8.4-10.2); Carbon Dioxide 28 mmol/L (22.0-30.0); Glucose 118 mg/dl (74-100)
[2020-04-12 23:46] LABS: Troponin I < 0.01 ng/ml (0.00-0.034)
[2020-04-12 23:53] LABS: Thyroid Stimulating Hormone 2.64 uIU/mL (0.465-4.68)
[2020-04-13] VITALS: BP 136/66; PULSE 64; RESP 15; TEMP 36.6; O2SAT 99
== END 2020-04-13 | disposition home or self-care (01) ==
PROVIDERS: Emergency Provider Emergency Medicine; PCP Family Medicine
DX: I48.0 Paroxysmal atrial fibrillation (principal); I10 Essential (primary) hypertension; E78.5 Hyperlipidemia, unspecified; Z79.899 Other long term (current) drug therapy; Z88.2 Allergy status to sulfonamides
CPT/HCPCS: 71045; 80048; 83735; 84436; 84443; 84484; 85025; 85378; 93005; 96365; 99282; 99283

== ENCOUNTER → 2020-04-13 14:36 | Outpatient (CLI) | payer MEDICARE, OTHER, SELFPAY ==
[2020-04-13 15:22] LABS: Basophils % 0.6 % (0.1-2.0); Eosinophils # 0.1 K/mm3 (0.0-0.4); Hematocrit 45.5 % (37.0-47.0); Hemoglobin 15.3 g/dL (12.2-16.2); Lymphocytes # 2.2 K/mm3 (0.7-4.5); Lymphocytes % 29.6 % (10-50); Mean Corpuscular HGB Conc 33.6 g/dL (31.8-35.4); Mean Corpuscular Hemoglobin 33.1 pg (27.0-31.2); Mean Corpuscular Volume 98.5 fl (81-99); Mean Platelet Volume 11.3 fl (7.4-10.4); Monocytes # 0.5 K/mm3 (0.1-1.0); Monocytes % 5.9 % (1.7-9.3); Neutrophils # 4.8 K/mm3 (1.8-7.8); Platelet Count 141 K/mm3 (142-424); Red Blood Count 4.62 M/mm3 (4.20-5.40); Red Cell Distribution Width 13.8 % (11.5-17.5); White Blood Count 7.6 K/mm3 (4.8-10.8)
[2020-04-13 15:54] LABS: Anion Gap 10.3 mEq/L (5-15); Blood Urea Nitrogen 15 mg/dl (7-17); Calcium 10.2 mg/dl (8.4-10.2); Carbon Dioxide 31 mmol/L (22.0-30.0); Chloride 104 mmol/L (98-107); Estimated Glomerular Filt Rate 70 ml/min (>60); GFR (African American) 84 ML/MIN (>60); Glucose 112 mg/dl (74-100); Potassium 4.3 mmoL/L (3.5-5.1); Sodium 141 mmol/L (136-145)
[2020-04-13 16:28] LABS: Coronavirus 19 IgG Antibody Negative (Negative); Coronavirus 19 IgM Antibody Negative (Negative)
== END ==
PROVIDERS: Visit Provider Nurse Practitioner Family
DX: E78.5 Hyperlipidemia, unspecified (principal); I11.9 Hypertensive heart disease without heart failure; I25.10 Atherosclerotic heart disease of native coronary artery without angina pectoris; I48.0 Paroxysmal atrial fibrillation; R00.2 Palpitations; R94.30 Abnormal result of cardiovascular function study, unspecified
CPT/HCPCS: 36415; 80048; 85025; 86328; 93270

== ENCOUNTER 2020-04-15 08:59 | Day surgery (SDC) | payer MEDICARE, OTHER, SELFPAY ==
[2020-04-15] VITALS (11 sets, daily range): BP systolic 112–145; BP diastolic 42–84; PULSE 50–74; RESP 16–18; TEMP 36.5–36.6; O2SAT 99–100; BMI 21.4
--- NOTE | 2020-04-15 07:15 | IR_ITS ---
APPROVED REPORT Patient Location: Outpatient PROCEDURES Left heart catheterization Left ventriculogram Selective coronary angiogram INDICATION Known coronary artery disease, Abnormal Myoview Informed consent was obtained prior to the procedure. COMPLICATIONS none Estimated Blood Loss: less than 10 mls TECHNIQUE One percent lidocaine used to anesthetize the right anterior aspect of the wrist. The right radial artery was accessed via the Seldinger technique. A 6 [place] sheath was placed in the right radial artery. 2.5 mg of verapamil, 800 mcg of nitroglycerin, 1mg Lidocaine and 5000 U Heparin were given through the arterial sheath. The trap catheter was also used to perform left heart catheterization, left ventriculogram and selective coronary angiogram. At the end of the procedure the sheath was removed good hemostasis was achieved using Traclet band, patient was transferred to the postop holding area in stable condition. ANGIOGRAPHIC RESULTS The left main artery Has a smooth ostial 20% stenosis The left anterior descending artery Has mild 10 to 20% proximal and mid vessel atheromatous plaque. Externally calcium is identified however there is no significant intravascular intrusion of the calcium The circumflex artery Is nondominant and has an ostial proximal smooth 10 to 20% stenosis The right coronary artery Is dominant and has an ostial 30 to 40% nonflow-limiting stenosis The FINCH ventriculogram reveals Slightly hyperdynamic at 70% The left ventricular end-diastolic pressure 10 mmHg IMPRESSION Mild to moderate nonflow-limiting coronary disease in the ostial dominant right coronary artery which is unchanged from previous heart cath Slightly hyperdynamic ventricle Normal LVEDP PLAN 1. Medical management Electronically signed by : Tarun Murray, 04/15/2020 12:45:46
== END 2020-04-15 15:37 | disposition home or self-care (01) ==
LOC: CATHLAB 09:00
PROVIDERS: PCP Family Medicine; Visit Provider Internal Medicine
DX: E78.5 Hyperlipidemia, unspecified (principal); I11.9 Hypertensive heart disease without heart failure; I25.10 Atherosclerotic heart disease of native coronary artery without angina pectoris; I48.0 Paroxysmal atrial fibrillation; R00.2 Palpitations; R94.30 Abnormal result of cardiovascular function study, unspecified; Z82.49 Family history of ischemic heart disease and other diseases of the circulatory system; Z88.2 Allergy status to sulfonamides; Z88.0 Allergy status to penicillin; Z79.01 Long term (current) use of anticoagulants; Z79.899 Other long term (current) drug therapy
CPT/HCPCS: 93458; 99152; C1725; C1769; J1644; Q9967

== ENCOUNTER 2020-10-20 18:41 | Emergency (ER) | payer MEDICARE, OTHER, SELFPAY ==
[2020-10-20 18:50] VITALS: BP 155/72; PULSE 61; RESP 17; TEMP 36.7; O2SAT 100; BMI 21.0
--- NOTE | 2020-10-20 18:51 | ECG_ITS ---
APPROVED REPORT Exam: Resting ECG HR:61 bpm ECG Measurements Heart Rate 61 AXES [place] 144 P 46 QRSd 78 QRS 53 QT 398 T 41 QTc 400 Conclusion Normal sinus rhythm Normal ECG Electronically signed by : Wilner Hussein, 10/21/2020 17:42:39
[2020-10-20 19:29] VITALS: BP 139/61; PULSE 57; RESP 17; O2SAT 99
[2020-10-20 19:32] LABS: Basophils % 0.6 % (0.1-2.0); Eosinophils % 0.5 % (0.1-12.0); Hemoglobin 14.2 g/dL (12.2-16.2); Lymphocytes % 43.5 % (10-50); Mean Corpuscular HGB Conc 33.8 g/dL (31.8-35.4); Mean Corpuscular Volume 94.7 fl (81-99); Mean Platelet Volume 10.1 fl (7.4-10.4); Monocytes # 0.4 K/mm3 (0.1-1.0); Monocytes % 6.2 % (1.7-9.3); Neutrophils # 3.4 K/mm3 (1.8-7.8); Neutrophils % 49.2 % (37.0-80.0); Platelet Count 127 K/mm3 (142-424); Red Blood Count 4.44 M/mm3 (4.20-5.40); Red Cell Distribution Width 13.2 % (11.5-17.5); White Blood Count 6.9 K/mm3 (4.8-10.8)
[2020-10-20 19:34] LABS: Chloride 103 mmol/L (98-107); Potassium 3.9 mmoL/L (3.5-5.1); Sodium 139 mmol/L (136-145)
[2020-10-20 19:36] LABS: Alanine Aminotransferase 25 U/L (12-78); Alkaline Phosphatase 90 U/L (38-126); Aspartate Amino Transferase 36 U/L (14-36); Bilirubin,Total 1.4 mg/dl (0.2-1.3); Blood Urea Nitrogen 19 mg/dl (7-17); Creatinine Clearance Estimated 38 mL/min (50-200); Estimated Glomerular Filt Rate 69 ml/min (>60); GFR (African American) 84 ML/MIN (>60)
--- NOTE | 2020-10-20 19:36 | XR_ITS ---
PROCEDURE INFORMATION: Exam: XR Chest Exam date and time: 10/20/2020 7:36 PM Age: 80 years old Clinical indication: Other: Arrythmia TECHNIQUE: Imaging protocol: XR of the chest. Views: 2 views. COMPARISON: CR XR CHEST PORTABLE 04/12/2020 3:59 PM FINDINGS: Lungs: Normal. Pleural spaces: Unremarkable. No pleural effusion. No pneumothorax. Heart/Mediastinum: Normal. Bones/joints: Multilevel thoracic spine degenerative disc space narrowing and osteophyte formation. Mild dextroscoliosis of the thoracic spine. IMPRESSION: No acute cardiopulmonary abnormality.
[2020-10-20 19:37] LABS: Albumin Level 4.5 g/dl (3.5-5.0); Albumin/Globulin Ratio 1.6 (1.1-1.8); Anion Gap 12.9 mEq/L (5-15); Calcium 9.4 mg/dl (8.4-10.2); Carbon Dioxide 27 mmol/L (22.0-30.0); Globulin 2.8 g/dL (1.3-3.2); Glucose 101 mg/dl (74-100); Total Protein,Serum 7.3 g/dl (6.3-8.2)
[2020-10-20 19:39] LABS: Microscopic, Urine URINE MICROSCOPIC (MICROSCOPIC)
[2020-10-20 19:45] VITALS: BP 139/61; PULSE 55; RESP 18; O2SAT 99
[2020-10-20 19:47] LABS: Magnesium 2.1 mg/dl (1.6-2.3)
[2020-10-20 19:54] LABS: Appearance,Urine CLEAR (Clear); Bilirubin,Urine Negative (Negative); Blood, Urine TRACE-I (Negative); Color,Urine STRAW (Yellow); Glucose,Urine (UA) Negative (Negative); Ketones,Urine Negative (Negative); Leukocyte Esterase,Urine 1+ (Negative); Nitrate,Urine Negative (Negative); Protein,Urine Negative (Negative); Specific Gravity, Urine <= 1.005 (1.005-1.030); Urobilinogen,Urine 0.2 EU/dl (0.2)
[2020-10-20 19:55] LABS: Troponin I < 0.01 ng/ml (0.00-0.034)
[2020-10-20 19:57] LABS: NT Pro Brain Natriuretic Pep. 484 pg/mL (0-450)
[2020-10-20 20:00] VITALS: BP 141/63; PULSE 56; RESP 17; O2SAT 98
--- NOTE | 2020-10-20 20:03 | HMH.EDGENADL ---
ED Disposition Clinical Impression: Palpitations Disposition: Home, Self-Care Condition on Discharge: Good Instructions: DI for Palpitations Additional Instructions: Follow-up with your primary care provider and press puller. Referrals: Israel Blanco MD [Primary Care Provider] - - Critical Care Critical Care Time: No Attestation: On 10/20/20, the high probability of a clinically significant, sudden or life threatening deterioration of the following system(s) required my full and direct attention, intervention and personal management. The time I documented below is in addition to time spent performing reported procedures but includes the following listed in this critical care notation. Medical Decision Making - Ollie Inquiry Pt receiving controlled substance: No Vital Signs: 10/20/20 18:50 10/20/20 19:29 Temperature 98.1 F Temperature Source Oral Pulse Rate 57 L Pulse Rate [Right] 61 Respiratory Rate 17 17 Blood Pressure 139/61 Blood Pressure [Right Arm] 155/72 H Blood Pressure Mean [Right Arm] 99 Blood Pressure Source [Right Arm] Automatic Cuff 02 Sat by Pulse Oximetry 100 99 Oxygen Delivery Method Room Air - Lab Data Lab Results 10/20/20 19:00: WBC 6.9, RBC 4.44, Hgb 14.2, Hct 42.0, MCV 94.7, MCH 32.0 H, MCHC 33.8, RDW 13.2, Plt Count 127 L, MPV 10.1, Neut % (Auto) 49.2, Lymph % (Auto) 43.5, [place] % (Auto) 6.2, Eos % (Auto) 0.5, Baso % (Auto) 0.6, Neut # (Auto) 3.4, Lymph # (Auto) 3.0, [place] # (Auto) 0.4, Eos # (Auto) 0.0, Baso # (Auto) 0.0 10/20/20 19:00: Sodium 139, Potassium 3.9, Chloride 103, Carbon Dioxide 27, Anion Gap 12.9, BUN 19 H, Creatinine 0.80, Estimated Creat Clear 38, Estimated GFR 69, Est GFR ( Amer) 84, Glucose 101 H, Calcium 9.4, Total Bilirubin 1.4 H, AST 36, ALT 25, Alkaline Phosphatase 90, Troponin I < 0.01, Total Protein 7.3, Albumin 4.5, Globulin 2.8, Albumin/Globulin Ratio 1.6 10/20/20 19:28: Magnesium 2.1, NT-Pro-B Natriuret Pep 484 H Result diagrams: 10/20/20 19:00 10/20/20 19:00 Orders (Tests/Meds): ORDERS Category Date Time Status XR chest 2V Stat Exams 10/20/20 19:36 Taken CRP [C-Reactive Protein] Stat Lab 10/20/20 19:00 Results Complete Blood Count Auto Diff Stat Lab 10/20/20 19:00 Results Comprehensive Metabolic Panel Stat Lab 10/20/20 19:00 Results Erythrocyte Sedimentation Rate Stat Lab 10/20/20 19:00 Results Procalcitonin Stat Lab 10/20/20 19:28 Received Troponin I Q3H Lab 10/20/20 22:30 Ordered Troponin I Q3H Lab 10/21/20 01:30 Ordered Troponin I Stat Lab 10/20/20 19:00 Results Urinalysis and Microscopic Stat Lab 10/20/20 19:28 Received - ECG Data Tracing #1 EKG interpreted by Kade Stout MD: Rhythm: sinus Rate: 61 [place]: normal Ectopy: none Conduction: normal ST Segment Changes: none T Wave Changes: none Q Waves: none No evidence of acute ischemia or injury Normal electrocardiogram General Adult HPI - General Chief complaint: Arrhythmia/Palpitations Stated complaint: abnormal heart beat Time Seen by Provider: 10/20/20 20:04 Mode of Arrival: Family Vehicle Limitations: No Limitations Description of Symptoms (Recalled from ER Triage Doc. by RN): Pt c/o feeling like her heart was racing and rubbing off and on . These symptoms began 2 days ago. Pt does have a h/o afib, she takes Eliquis and Metoprolol. Pt denies any SOB, dizziness, N/V, or chest pain. - History of Present Illness HPI narrative: History of palpitations. Denies chest pain or shortness of breath. States she has a history of atrial fibrillation. She feels better since arriving in the emergency department. Denies any other complaints. - Related Data Home Medications Medication Instructions Recorded Confirmed calcium citrate-vitamin D3 500 mg 1 tab PO BID 07/05/17 07/30/20 calcium-400 unit chewable tablet coenzyme Q10 100 mg capsule 100 mg PO DAILY 09/19/18 07/30/20 Atorvastatin Calcium [Lipitor 40mg 40 mg PO DAILY
[2020-10-20 20:24] LABS: C-Reactive Protein 0.6 mg/L (0-4)
[2020-10-20 20:30] VITALS: BP 139/68; PULSE 58; RESP 15; O2SAT 99
[2020-10-20 20:38] LABS: Bacteria,Urine Trace /lpf; RBC,Urine Occasional #/hpf (0-3)
[2020-10-20 20:43] VITALS: BP 139/68; PULSE 54; RESP 16; TEMP 36.8; O2SAT 99
[2020-10-20 20:58] LABS: Erythrocyte Sedimentation Rate 16 mm/hr (0-30)
[2020-10-20 21:07] LABS: Procalcitonin < 0.300 ng/mL (0.0-2.0)
== END 2020-10-20 20:48 | disposition home or self-care (01) ==
PROVIDERS: Emergency Medicine; Emergency Provider Emergency Medicine; PCP Family Medicine
DX: R00.2 Palpitations (principal); R06.82 Tachypnea, not elsewhere classified; I48.0 Paroxysmal atrial fibrillation; I10 Essential (primary) hypertension; E78.5 Hyperlipidemia, unspecified; Z79.899 Other long term (current) drug therapy
CPT/HCPCS: 71046; 80053; 81001; 83735; 83880; 84145; 84484; 85025; 85651; 86140; 87086; 93005; 99283

== ENCOUNTER → 2020-12-07 11:51 | Outpatient (CLI) | payer MEDICARE, OTHER, SELFPAY ==
[2020-12-07 11:56] LABS: Microscopic, Urine URINE MICROSCOPIC (MICROSCOPIC)
[2020-12-07 12:29] LABS: Basophils % 0.5 % (0.1-2.0); Eosinophils % 0.3 % (0.1-12.0); Hematocrit 44.5 % (37.0-47.0); Hemoglobin 14.7 g/dL (12.2-16.2); Lymphocytes # 1.9 K/mm3 (0.7-4.5); Lymphocytes % 28.6 % (10-50); Mean Corpuscular HGB Conc 33.1 g/dL (31.8-35.4); Mean Corpuscular Hemoglobin 32.6 pg (27.0-31.2); Mean Corpuscular Volume 98.5 fl (81-99); Mean Platelet Volume 10.8 fl (7.4-10.4); Monocytes # 0.3 K/mm3 (0.1-1.0); Monocytes % 4.7 % (1.7-9.3); Neutrophils # 4.4 K/mm3 (1.8-7.8); Neutrophils % 65.9 % (37.0-80.0); Platelet Count 147 K/mm3 (142-424); Red Blood Count 4.51 M/mm3 (4.20-5.40); Red Cell Distribution Width 13.2 % (11.5-17.5); White Blood Count 6.7 K/mm3 (4.8-10.8)
[2020-12-07 14:08] LABS: Alanine Aminotransferase 29 U/L (12-78); Albumin Level 4.4 g/dl (3.5-5.0); Albumin/Globulin Ratio 1.5 (1.1-1.8); Alkaline Phosphatase 88 U/L (38-126); Anion Gap 14.8 mEq/L (5-15); Aspartate Amino Transferase 36 U/L (14-36); Bilirubin,Total 1.5 mg/dl (0.2-1.3); Blood Urea Nitrogen 16 mg/dl (7-17); Calcium 9.7 mg/dl (8.4-10.2); Carbon Dioxide 27 mmol/L (22.0-30.0); Chloride 103 mmol/L (98-107); Chol/HDL Ratio 2.6 (1-3.5); Cholesterol 179 mg/dl (140-200); Estimated Glomerular Filt Rate 81 ml/min (>60); GFR (African American) 98 ML/MIN (>60); Glucose 103 mg/dl (74-100); HDL Cholesterol 69 mg/dl (40-60); Phosphorous 4.1 mg/dl (2.5-4.5); Potassium 3.8 mmoL/L (3.5-5.1); Sodium 141 mmol/L (136-145); Total Protein,Serum 7.4 g/dl (6.3-8.2); Triglycerides 56 mg/dl (30-150); VLDL Cholesterol 11 mg/dL (0-40)
[2020-12-07 14:19] LABS: Direct LDL Cholesterol 87.45 mg/dL (100-129)
[2020-12-07 14:23] LABS: Appearance,Urine CLEAR (Clear); Bilirubin,Urine Negative (Negative); Blood, Urine TRACE-I (Negative); Color,Urine YELLOW (Yellow); Glucose,Urine (UA) Negative (Negative); Ketones,Urine Negative (Negative); Leukocyte Esterase,Urine Negative (Negative); Nitrate,Urine Negative (Negative); Protein,Urine Negative (Negative); Urobilinogen,Urine 0.2 EU/dl (0.2)
[2020-12-07 14:27] LABS: Hemoglobin A1C 5.1 % (4.0-6.0)
[2020-12-07 14:38] LABS: Thyroid Stimulating Hormone 0.93 uIU/mL (0.465-4.68)
[2020-12-07 14:53] LABS: Creatinine,Urine Random 39 mg/dL (Not Estab.)
[2020-12-07 14:56] LABS: Microalbumin/Creatinine Ratio 15.6; Vitamin B12 922 pg/mL (239-931)
[2020-12-07 15:05] LABS: RBC,Urine Occasional #/hpf (0-3)
== END ==
PROVIDERS: Visit Provider Family Medicine
DX: I10 Essential (primary) hypertension (principal); R73.01 Impaired fasting glucose; N28.9 Disorder of kidney and ureter, unspecified; E78.00 Pure hypercholesterolemia, unspecified; R41.3 Other amnesia
CPT/HCPCS: 36415; 80053; 80061; 81001; 82043; 82570; 82607; 83036; 83970; 84100; 84443; 85025

== ENCOUNTER → 2021-01-03 09:26 | Outpatient (CLI) | payer MEDICARE, OTHER, SELFPAY | PROVIDERS: PCP Family Medicine; Visit Provider Nurse Practitioner Family | DX: G31.84 Mild cognitive impairment of uncertain or unknown etiology (principal) | CPT/HCPCS: 95819 ==

== ENCOUNTER → 2021-05-06 10:17 | Outpatient (CLI) | payer MEDICARE, OTHER, SELFPAY ==
[2021-05-06 13:12] LABS: Blood Urea Nitrogen 22 mg/dl (7-17); Estimated Glomerular Filt Rate 81 ml/min (>60); GFR (African American) 98 ML/MIN (>60)
== END ==
PROVIDERS: PCP Family Medicine; Visit Provider Nurse Practitioner Family
DX: R51.9 Headache, unspecified (principal); Z86.011 Personal history of benign neoplasm of the brain; Z98.890 Other specified postprocedural states; R00.1 Bradycardia, unspecified
CPT/HCPCS: 36415; 82565; 84520; 93270

== ENCOUNTER → 2021-05-09 13:59 | Outpatient (CLI) | payer MEDICARE, OTHER, SELFPAY ==
--- NOTE | 2021-05-09 13:59 | CT_ITS ---
FINAL REPORT TECHNIQUE: Multiple axial CT sections were performed from the foramen magnum to the vertex. Coronal reformatted images were also obtained. Precontrast and postcontrast injection images were obtained. This study was performed with technique to keep radiation doses as low as reasonably achievable, (ALARA). Individualized dose reduction techniques using automated exposure control or adjustment of mA and/or kV according to the patient size were employed. 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 Surgical clips are seen in the region of the pterygoid musculature on the right. The ventricles are normal in size. There is no evidence of hemorrhage. No masses are identified. No extra-axial fluid collection is seen. There is extensive left maxillary mucoperiosteal thickening with chronic sinusitis. Postcontrast images demonstrate no abnormal enhancement. IMPRESSION: No acute intracranial abnormality. Extensive postoperative changes with associated encephalomalacia. Chronic left maxillary sinusitis. Reviewed, Interpreted and Dictated by Malik Parker MD Transcribed by Katherine Tirado Authenticated by Malik Parker MD on 05/09/2021 04:23:[address] [facility]
== END ==
PROVIDERS: PCP Family Medicine; Visit Provider Nurse Practitioner Family
DX: R42 Dizziness and giddiness (principal); R51.9 Headache, unspecified; Z86.011 Personal history of benign neoplasm of the brain; Z98.890 Other specified postprocedural states
CPT/HCPCS: 70470; Q9967

== ENCOUNTER 2021-07-08 15:25 | Emergency (ER) | payer MEDICARE, OTHER, SELFPAY ==
--- NOTE | 2021-07-08 15:25 | ECG_ITS ---
APPROVED REPORT Exam: Resting ECG HR:115 bpm ECG Measurements Heart Rate 115 AXES QRSd 84 QRS 65 QT 258 T -20 QTc 326 Conclusion ATRIAL FIBRILLATION WITH RAPID VENTRICULAR RESPONSE NONSPECIFIC ST & T-WAVE ABNORMALITY ABNORMAL ECG UNCONFIRMED REPORT Electronically signed by : Wilner Hussein MD 07/08/2021 19:32:48
[2021-07-08 15:31] VITALS: BP 168/83; PULSE 112; RESP 15; TEMP 36.4; O2SAT 98; BMI 21.2
--- NOTE | 2021-07-08 15:37 | XR_ITS ---
FINAL REPORT CLINICAL HISTORY: cp COMPARISON: 10/20/2020 FINDINGS: SINGLE VIEW CHEST The heart is normal in size. The mediastinum is unremarkable. The lungs are clear. There is no pneumothorax. IMPRESSION: No acute cardiopulmonary process. Reviewed, Interpreted and Dictated by Malik Parker MD Transcribed by Noemy Regalado Authenticated by Malik Parker MD on 07/08/2021 04:12:31 PM [facility]
[2021-07-08 15:51] LABS: Chloride 102 mmol/L (98-107); Sodium 138 mmol/L (136-145)
[2021-07-08 15:52] LABS: Potassium 3.5 mmoL/L (3.5-5.1)
[2021-07-08 15:54] LABS: Anion Gap 11.5 mEq/L (5-15); Blood Urea Nitrogen 15 mg/dl (7-17); Carbon Dioxide 28 mmol/L (22.0-30.0); Creatinine Clearance Estimated 39 mL/min (50-200); Estimated Glomerular Filt Rate 81 ml/min (>60); GFR (African American) 98 ML/MIN (>60)
[2021-07-08 15:55] LABS: Glucose 112 mg/dl (74-100)
[2021-07-08 16:11] LABS: Troponin I < 0.01 ng/ml (0.00-0.034)
--- NOTE | 2021-07-08 16:55 | HMH.EDGENADL ---
ED Disposition Clinical Impression: Paroxysmal atrial fibrillation Disposition: Home, Self-Care Condition on Discharge: Good Instructions: DI for Atrial Fibrillation Additional Instructions: You should take your dose of metoprolol this evening, continue all previous medications as prescribed. Follow-up with your body team member, call Sunday for appointment. Return if symptoms return. Referrals: Israel Blanco MD [Primary Care Provider] - - Critical Care Critical Care Time: No Attestation: On 07/08/21, the high probability of a clinically significant, sudden or life threatening deterioration of the following system(s) required my full and direct attention, intervention and personal management. The time I documented below is in addition to time spent performing reported procedures but includes the following listed in this critical care notation. Medical Decision Making - Ollie Inquiry Pt receiving controlled substance: No Vital Signs: 07/08/21 15:31 07/08/21 17:16 07/08/21 17:21 Temperature 97.6 F Temperature Source Oral Pulse Rate 86 89 Pulse Rate [Right Radial] 112 H Respiratory Rate 15 15 16 Blood Pressure 144/74 H 148/88 H Blood Pressure [Right Arm] 168/83 H Blood Pressure Mean 93 95 Blood Pressure Mean [Right Arm] 111 Blood Pressure Source [Right Arm] Automatic Cuff Blood Pressure Position [Right Arm] Sitting 02 Sat by Pulse Oximetry 98 100 99 Oxygen Delivery Method Room Air 07/08/21 18:30 07/08/21 18:43 Temperature 98.1 F Temperature Source Pulse Rate 72 72 Pulse Rate [Right Radial] Respiratory Rate 14 14 Blood Pressure 106/60 L 106/60 L Blood Pressure [Right Arm] Blood Pressure Mean 75 Blood Pressure Mean [Right Arm] Blood Pressure Source [Right Arm] Blood Pressure Position [Right Arm] 02 Sat by Pulse Oximetry 99 Oxygen Delivery Method - Lab Data Lab Results 07/08/21 15:38: Sodium 138, Potassium 3.5, Chloride 102, Carbon Dioxide 28, Anion Gap 11.5, BUN 15, Creatinine 0.70, Estimated Creat Clear 39, Estimated GFR 81, Est GFR ( Amer) 98, Glucose 112 H, Calcium 9.0, Troponin I < 0.01 07/08/21 15:38: WBC 7.8, RBC 4.58, Hgb 15.0, Hct 47.0, MCV 102.6 H, MCH 32.8 H, MCHC 32.0, RDW 13.3, Plt Count 160, MPV 11.7 H, Neut % (Auto) 52.5, Lymph % (Auto) 38.5, [place] % (Auto) 7.0, Eos % (Auto) 0.8, Baso % (Auto) 1.2, Neut # (Auto) 4.1, Lymph # (Auto) 3.0, [place] # (Auto) 0.6, Eos # (Auto) 0.1, Baso # (Auto) 0.1 Result diagrams: 07/08/21 15:38 07/08/21 15:38 Orders (Tests/Meds): ED MEDICATIONS Discontinued Medications Generic Name Dose Route Start Last Admin Trade Name Freq PRN Reason Stop Dose Admin Metoprolol Tartrate 5 mg 07/08/21 17:14 07/08/21 17:23 Metoprolol Tartrate 5mg/5ml Vial IV 07/08/21 17:15 5 mg ONCE ONE Administration Sodium Chloride 10 ml 07/08/21 15:37 Sodium Chloride 0.9% 10ml Flush Syringe IV 08/07/21 15:36 NEEDED PRN Maintain IV Site - Radiology Data #1 Image(s): Chest Image Reviewed: Yes I have reviewed radiologist's interpretation Procedure(s): XR chest portable Accession Number(s): [id number] cc: Malik Parker MD; Provider,Referral MD~ FINAL REPORT CLINICAL HISTORY: cp COMPARISON: 10/20/2020 FINDINGS: SINGLE VIEW CHEST The heart is normal in size. The mediastinum is unremarkable. The lungs are clear. There is no pneumothorax. IMPRESSION: No acute cardiopulmonary process. Reviewed, Interpreted and Dictated by Malik Parker MD Transcribed by Noemy Regalado Authenticated by Malik Parker MD on 07/08/2021 04:12:31 PM [facility] - ECG Data Tracing #1 EKG interpreted by Kade Stout MD: Rhythm: Atrial fibrillation with rapid ventricular response Rate: 115 [employer]: normal Ectopy: none Conduction: normal ST Segment Changes: Nonspecific T Wave Changes: Nonspecific Q Waves: none No evidence of acute ischemia or injury Tracin
[2021-07-08 17:16] VITALS: BP 144/74; PULSE 86; RESP 15; O2SAT 100
[2021-07-08 17:21] VITALS: BP 148/88; PULSE 89; RESP 16; O2SAT 99
--- NOTE | 2021-07-08 17:40 | PC.NURSE ---
waiting coronary clinical specialist back from [place] in lab r/t delay in cbc result
[2021-07-08 17:45] LABS: Basophils # 0.1 K/mm3 (0-0.2); Basophils % 1.2 % (0.1-2.0); Eosinophils # 0.1 K/mm3 (0.0-0.4); Eosinophils % 0.8 % (0.1-12.0); Lymphocytes % 38.5 % (10-50); Mean Corpuscular Hemoglobin 32.8 pg (27.0-31.2); Mean Corpuscular Volume 102.6 fl (81-99); Mean Platelet Volume 11.7 fl (7.4-10.4); Monocytes # 0.6 K/mm3 (0.1-1.0); Neutrophils # 4.1 K/mm3 (1.8-7.8); Neutrophils % 52.5 % (37.0-80.0); Platelet Count 160 K/mm3 (142-424); Red Blood Count 4.58 M/mm3 (4.20-5.40); Red Cell Distribution Width 13.3 % (11.5-17.5); White Blood Count 7.8 K/mm3 (4.8-10.8)
--- NOTE | 2021-07-08 18:01 | ECG_ITS ---
APPROVED REPORT Exam: Resting ECG HR:74 bpm ECG Measurements Heart Rate 74 AXES [place] 166 P 85 QRSd 82 QRS 63 QT 365 T 48 QTc 392 Conclusion SINUS RHYTHM NORMAL ECG UNCONFIRMED REPORT Electronically signed by : Wilner Hussein MD 07/10/2021 07:51:19
[2021-07-08 18:30] VITALS: BP 106/60; PULSE 72; RESP 14; O2SAT 99
[2021-07-08 18:43] VITALS: BP 106/60; PULSE 72; RESP 14; TEMP 36.7; O2SAT 99
== END 2021-07-08 18:47 | disposition home or self-care (01) ==
PROVIDERS: Emergency Provider Emergency Medicine; PCP Family Medicine
DX: I48.0 Paroxysmal atrial fibrillation (principal); R00.2 Palpitations; I10 Essential (primary) hypertension; F41.8 Other specified anxiety disorders; E78.5 Hyperlipidemia, unspecified; Z88.2 Allergy status to sulfonamides
CPT/HCPCS: 71045; 80048; 84484; 85025; 93005; 96374; 99284

== ENCOUNTER → 2021-09-09 10:52 | Day surgery (SDC) | payer MEDICARE, OTHER, SELFPAY ==
[2021-09-09 10:58] VITALS: BMI 21.4
[2021-09-09 11:22] LABS: Basophils # 0.1 K/mm3 (0-0.2); Basophils % 2.3 % (0.1-2.0); Eosinophils % 0.5 % (0.1-12.0); Hematocrit 47.1 % (37.0-47.0); Hemoglobin 15.9 g/dL (12.2-16.2); Lymphocytes # 1.6 K/mm3 (0.7-4.5); Lymphocytes % 27.2 % (10-50); Mean Corpuscular HGB Conc 33.8 g/dL (31.8-35.4); Mean Corpuscular Volume 100.5 fl (81-99); Mean Platelet Volume 10.2 fl (7.4-10.4); Monocytes # 0.4 K/mm3 (0.1-1.0); Monocytes % 6.2 % (1.7-9.3); Neutrophils # 3.7 K/mm3 (1.8-7.8); Neutrophils % 63.7 % (37.0-80.0); Platelet Count 148 K/mm3 (142-424); Red Blood Count 4.68 M/mm3 (4.20-5.40); Red Cell Distribution Width 13.6 % (11.5-17.5); White Blood Count 5.7 K/mm3 (4.8-10.8)
[2021-09-09 11:25] LABS: Chloride 105 mmol/L (98-107); Sodium 141 mmol/L (136-145)
[2021-09-09 11:26] LABS: Potassium 3.9 mmoL/L (3.5-5.1)
[2021-09-09 11:28] LABS: Blood Urea Nitrogen 17 mg/dl (7-17); Creatinine Clearance Estimated 38 mL/min (50-200); Estimated Glomerular Filt Rate 81 ml/min (>60); GFR (African American) 98 ML/MIN (>60)
[2021-09-09 11:29] LABS: Anion Gap 10.9 mEq/L (5-15); Calcium 10.5 mg/dl (8.4-10.2); Carbon Dioxide 29 mmol/L (22.0-30.0); Glucose 122 mg/dl (74-100)
[2021-09-09 11:43] LABS: Coronavirus 19, PCR Not Detected (NotDetected); Influenza A, PCR Not Detected (NotDetected); Influenza B, PCR Not Detected (NotDetected)
--- NOTE | 2021-09-09 12:02 | SUR.PREOP ---
went to lobby to get patient for procedure. patient not present when calling for her. cardiology office called to see if patient patient was down there and patient was not. attempting to locate patient at this time.
--- NOTE | 2021-09-09 12:27 | ECG_ITS ---
APPROVED REPORT Exam: Resting ECG HR:50 bpm ECG Measurements Heart Rate 50 AXES [place] 159 P 90 QRSd 88 QRS 50 QT 420 T 37 QTc 392 Conclusion SINUS BRADYCARDIA BORDERLINE ECG UNCONFIRMED REPORT Electronically signed by : Wilner Hussein MD 09/10/2021 09:51:01
--- NOTE | 2021-09-09 12:33 | SUR.PREOP ---
Upon bringing the patient to pre op pt was noted to be in Sinus Grey. EKG obtained and read by MD. Dr. TAO came and spoke with patient regarding POC and patient being in Sinus Grey. pt is to follow up in the office. Appointment being obtained.
--- NOTE | 2021-09-09 12:42 | SUR.PREOP ---
bp- 162/81 HR-59 R-16 O2-95 ra
--- NOTE | 2021-09-09 13:19 | PC.NURSE ---
PATIENT CALLED AT THIS TIME AND INFORMED OF APPOINTMENT IN THE OFFICE FOR September AT 1130.
== END ==
PROVIDERS: Internal Medicine Cardiovascular Disease; PCP Family Medicine; Visit Provider Internal Medicine
DX: I48.0 Paroxysmal atrial fibrillation (principal); E78.2 Mixed hyperlipidemia; Z53.09 Procedure and treatment not carried out because of other contraindication; I25.118 Atherosclerotic heart disease of native coronary artery with other forms of angina pectoris; I11.9 Hypertensive heart disease without heart failure; R00.2 Palpitations; Z20.822 Contact with and (suspected) exposure to COVID-19
CPT/HCPCS: 36415; 80048; 85025; 93005; C9803; U0003; U0005

== ENCOUNTER 2021-09-10 12:59 | Emergency (ER) | payer MEDICARE, OTHER, SELFPAY ==
[2021-09-10] VITALS (8 sets, daily range): BP systolic 108–156; BP diastolic 57–85; PULSE 70–110; RESP 13–18; TEMP 36.6–36.9; O2SAT 97–100; BMI 21.9
--- NOTE | 2021-09-10 12:59 | ECG_ITS ---
APPROVED REPORT Exam: Resting ECG HR:92 bpm ECG Measurements Heart Rate 92 AXES QRSd 87 QRS 57 QT 342 T -26 QTc 392 Conclusion ATRIAL FIBRILLATION NONSPECIFIC ST & T-WAVE ABNORMALITY ABNORMAL ECG UNCONFIRMED REPORT Electronically signed by : Wilner Hussein MD 09/12/2021 09:41:02
--- NOTE | 2021-09-10 13:04 | PC.NURSE ---
MINH Romero at BS
--- NOTE | 2021-09-10 13:08 | PC.NURSE ---
Naima Jones, RN at
--- NOTE | 2021-09-10 13:08 | HMH.EDGENADL ---
ED Disposition Clinical Impression: Atrial fibrillation/flutter Disposition: Home, Self-Care Condition on Discharge: Good Instructions: DI for Atrial Fibrillation Additional Instructions: Taking digoxin as prescribed daily starting tomorrow. Continue other medications. See Dr. Murray/Dr. Pettit in the office on Sunday09/13/2021 at 9 AM. Additional instructions for CHEST PAIN: Return immediately if worsening chest pain, vomiting, shortness of breath, fever, coughing of blood. Prescriptions: Digoxin [Digoxin 0.125mg Tablet] 125 mcg PO DAILY #30 tab Transmission Status: Received by [facility] Referrals: Provider,Referral, [Primary Care Provider] - - Critical Care Critical Care Time: No Attestation: On , the high probability of a clinically significant, sudden or life threatening deterioration of the following system(s) required my full and direct attention, intervention and personal management. The time I documented below is in addition to time spent performing reported procedures but includes the following listed in this critical care notation. Medical Decision Making - Medical Records Medical records reviewed: Yes: I reviewed the patient's medical records. MR Comment: Reviewed cardiology office note and 2 electrocardiograms from yesterday. First EKG showed atrial flutter with variable block, second EKG normal sinus rhythm. Reviewed previous cardiac cath results, see below. - Ollie Inquiry Pt receiving controlled substance: No Vital Signs: 09/10/21 13:02 09/10/21 13:30 09/10/21 14:00 Temperature 97.9 F Temperature Source Oral Pulse Rate 78 81 Pulse Rate [Right Radial] 110 H Respiratory Rate 16 15 15 Blood Pressure 138/71 156/85 H Blood Pressure [Right Arm] 133/75 Blood Pressure Mean 93 108 Blood Pressure Mean [Right Arm] 94 Blood Pressure Source [Right Arm] Automatic Cuff Blood Pressure Position [Right Arm] Sitting 02 Sat by Pulse Oximetry 99 100 100 Oxygen Delivery Method Room Air 09/10/21 14:20 09/10/21 14:30 09/10/21 15:00 Temperature Temperature Source Pulse Rate 70 74 74 Pulse Rate [Right Radial] Respiratory Rate 15 16 Blood Pressure 132/82 115/77 117/68 Blood Pressure [Right Arm] Blood Pressure Mean 100 94 84 Blood Pressure Mean [Right Arm] Blood Pressure Source [Right Arm] Blood Pressure Position [Right Arm] 02 Sat by Pulse Oximetry 98 98 98 Oxygen Delivery Method 09/10/21 15:30 09/10/21 16:09 Temperature 98.4 F Temperature Source Pulse Rate 77 78 Pulse Rate [Right Radial] Respiratory Rate 18 13 Blood Pressure 135/72 108/57 L Blood Pressure [Right Arm] Blood Pressure Mean 86 Blood Pressure Mean [Right Arm] Blood Pressure Source [Right Arm] Blood Pressure Position [Right Arm] 02 Sat by Pulse Oximetry Oxygen Delivery Method PROCEDURES Left heart catheterization Left ventriculogram Selective coronary angiogram INDICATION Known coronary artery disease, Abnormal Myoview Informed consent was obtained prior to the procedure. COMPLICATIONS none Estimated Blood Loss: less than 10 mls TECHNIQUE One percent lidocaine used to anesthetize the right anterior aspect of the wrist. The right radial artery was accessed via the Seldinger technique. A 6 Vietnamese sheath was placed in the right radial artery. 2.5 mg of verapamil, 800 mcg of nitroglycerin, 1mg Lidocaine and 5000 U Heparin were given through the arterial sheath. The trap catheter was also used to perform left heart catheterization, left ventriculogram and selective coronary angiogram. At the end of the procedure the sheath was removed good hemostasis was achieved using Traclet band, patient was transferred to the postop holding area in stable condition. ANGIOGRAPHIC RESULTS The left main artery Has a smooth ostial 20% stenosis The left anterior descending artery Has mild 10 to 20% proximal
--- NOTE | 2021-09-10 13:13 | XR_ITS ---
PROCEDURE INFORMATION: Exam: XR Chest Exam date and time: 09/10/2021 1:25 PM Age: 81 years old Clinical indication: Other: A-fib arhythmia; Additional info: Arrhythmia TECHNIQUE: Imaging protocol: XR of the chest. Views: 1 view. COMPARISON: CR XR CHEST PORTABLE 07/08/2021 3:44 PM FINDINGS: Airway: Patent Lungs: Mild chronic interstitial scarring. No acute interstitial or airspace disease. Pleural spaces: Unremarkable. No pleural effusion. No pneumothorax. Heart/Mediastinum: Unremarkable. No cardiomegaly. Vasculature: Calcified aortic knob. Bones/joints: Multilevel old/healed left rib fractures, stable. No acute skeletal abnormality or aggressive osseous lesion. IMPRESSION: No acute thoracic pathology.
[2021-09-10 13:25] LABS: Basophils % 0.5 % (0.1-2.0); Eosinophils % 0.4 % (0.1-12.0); Hematocrit 47.6 % (37.0-47.0); Hemoglobin 15.5 g/dL (12.2-16.2); Lymphocytes # 2.1 K/mm3 (0.7-4.5); Lymphocytes % 24.4 % (10-50); Mean Corpuscular HGB Conc 32.5 g/dL (31.8-35.4); Mean Corpuscular Hemoglobin 32.8 pg (27.0-31.2); Mean Corpuscular Volume 101.1 fl (81-99); Mean Platelet Volume 11.1 fl (7.4-10.4); Monocytes # 0.4 K/mm3 (0.1-1.0); Neutrophils % 69.7 % (37.0-80.0); Platelet Count 145 K/mm3 (142-424); Red Blood Count 4.71 M/mm3 (4.20-5.40); Red Cell Distribution Width 13.6 % (11.5-17.5); White Blood Count 8.6 K/mm3 (4.8-10.8)
[2021-09-10 13:28] LABS: Chloride 104 mmol/L (98-107); Potassium 3.9 mmoL/L (3.5-5.1); Sodium 137 mmol/L (136-145)
[2021-09-10 13:31] LABS: Alanine Aminotransferase 28 U/L (12-78); Albumin Level 4.2 g/dl (3.5-5.0); Albumin/Globulin Ratio 1.5 (1.1-1.8); Alkaline Phosphatase 92 U/L (38-126); Anion Gap 9.9 mEq/L (5-15); Aspartate Amino Transferase 38 U/L (14-36); Bilirubin,Total 1.4 mg/dl (0.2-1.3); Blood Urea Nitrogen 20 mg/dl (7-17); Carbon Dioxide 27 mmol/L (22.0-30.0); Creatinine Clearance Estimated 39 mL/min (50-200); Estimated Glomerular Filt Rate 69 ml/min (>60); GFR (African American) 84 ML/MIN (>60); Globulin 2.8 g/dL (1.3-3.2); Glucose 134 mg/dl (74-100)
--- NOTE | 2021-09-10 13:43 | PC.NURSE ---
ED MD at
[2021-09-10 13:47] LABS: Troponin I < 0.01 ng/ml (0.00-0.034)
--- NOTE | 2021-09-10 14:04 | PC.NURSE ---
pt ambulated to and from the rest room,; pt got a little lost and tech had to help pt back to room
--- NOTE | 2021-09-10 14:39 | PC.NURSE ---
ED MD at
--- NOTE | 2021-09-10 14:53 | PC.NURSE ---
speaking with Dr Murray
--- NOTE | 2021-09-10 15:05 | PC.NURSE ---
Pt ambulated to bathroom
== END 2021-09-10 16:11 | disposition home or self-care (01) ==
PROVIDERS: Emergency Provider Emergency Medicine
DX: I48.0 Paroxysmal atrial fibrillation (principal); Z79.01 Long term (current) use of anticoagulants; I10 Essential (primary) hypertension; F41.8 Other specified anxiety disorders; E78.5 Hyperlipidemia, unspecified; R00.2 Palpitations; Z79.899 Other long term (current) drug therapy
CPT/HCPCS: 71045; 80053; 84484; 85025; 93005; 96374; 99284

== ENCOUNTER → 2021-11-18 10:37 | Outpatient (CLI) | payer MEDICARE, OTHER, SELFPAY | PROVIDERS: PCP Family Medicine; Visit Provider Internal Medicine Cardiovascular Disease | DX: E78.5 Hyperlipidemia, unspecified (principal); I11.9 Hypertensive heart disease without heart failure; I25.10 Atherosclerotic heart disease of native coronary artery without angina pectoris; I48.0 Paroxysmal atrial fibrillation; Z51.81 Encounter for therapeutic drug level monitoring | CPT/HCPCS: 36415; 80162 ==

== ENCOUNTER 2022-03-17 17:47 | Inpatient (IN) | payer MEDICARE, OTHER, SELFPAY ==
[2022-03-17] VITALS (7 sets, daily range): BP systolic 100–173; BP diastolic 64–91; PULSE 65–91; RESP 15–20; TEMP 36.6–37.3; O2SAT 95–99; BMI 22.0; BMI 21.9; BMI 22.4
--- NOTE | 2022-03-17 17:56 | PC.NURSE ---
Called rad for stat head CT
--- NOTE | 2022-03-17 18:05 | CT_ITS ---
PROCEDURE INFORMATION: Exam: CT Head Without Contrast Exam date and time: 03/17/2022 6:09 PM Age: 81 years old Clinical indication: Stroke-like symptoms; Altered mental status/memory loss; Additional info: Stroke protocol TECHNIQUE: Imaging protocol: Computed tomography of the head without contrast. Radiation optimization: All CT scans at this facility use at least one of these dose optimization techniques: automated exposure control; mA and/or kV adjustment per patient size (includes targeted exams where dose is matched to clinical indication); or iterative reconstruction. Other technique: STROKE PROTOCOL was implemented. COMPARISON: CT HEAD/BRAIN WO/W CON 05/09/2021 2:40 PM FINDINGS: Brain: Encephalomalacia/gliosis is visualized involving the right frontal and anterior temporal lobes, stable compared to the prior study. Mild extension of brain parenchyma into the craniectomy defect, stable compared to the previous exam. A small chronic infarct is again visualized within the right cerebellar lobe. A tiny calcification is seen within the area of encephalomalacia of the anterior right temporal lobe. This is stable. No acute intracranial hemorrhage is visualized. The sauer-white differentiation is otherwise preserved demonstrating no acute territorial type infarct. There is no midline shift. Artifact limits evaluation of the luis antonio. Cerebral ventricles: Mild ventriculomegaly, with ex vacuo dilatation of the right lateral ventricle. Sulcal atrophy also visualized. Paranasal sinuses: Partial opacification of the left maxillary sinus. There is opacification of the left frontal sinus and left mid anterior ethmoid air cells. Mastoid air cells: No mastoid effusion. Bones/joints: A stable right-sided craniectomy is visualized. Soft tissues: Unremarkable. Vasculature: Intracranial atherosclerosis visualized. Other findings: Abnormal density is visualized within the nasal cavity superiorly, left side greater than right. Polyposis is considered. IMPRESSION: 1. No acute intracranial hemorrhage or acute territorial type infarct. 2. A stable right-sided craniectomy is visualized. 3. Encephalomalacia/gliosis is visualized involving the right frontal and anterior temporal lobes, stable compared to the prior study. 4. Mild extension of brain parenchyma into the craniectomy defect, stable compared to the previous exam. 5. A small chronic infarct is again visualized within the right cerebellar lobe. 6. Mild ventriculomegaly, with ex vacuo dilatation of the right lateral ventricle. Sulcal atrophy also visualized. 7. Paranasal sinus disease. 8. Abnormal density is visualized within the nasal cavity superiorly, left side greater than right. Polyposis is considered. Clinical correlation recommended. 9. If further evaluation is clinically indicated, an MRI of the brain is recommended. ASSESSMENT: ASPECTS (Anable Stroke Program Early CT Score) is 10.
--- NOTE | 2022-03-17 18:10 | HMH.EDGENADL ---
Discharge Plan Disposition Patient Disposition: Admitted As Inpatient Condition: Fair Clinical Impressions Clinical Impression: Acute CVA (cerebrovascular accident) Discharge ED Provider: Kade Stout General Adult HPI <Kade Stout MD - Last Filed: 03/17/22 20:12> General Chief complaint: Weakness Stated complaint: pressue top head tumor 2014 Time Seen by Provider: 03/17/22 18:00 History of Present Illness HPI narrative: History obtained from patient and his son-in-law. 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 She says she has been told not to hang her head below her heart, if she does so she says she can accumulate fluid in the area of the defect. She says that she was doing a lot of things she should not have been doing. She was moving some objects and bending over all day yesterday. Since awakening this morning she has a pain or pressure in the area of her defect. She states she is having difficulty with ambulating. She feels the symptoms are improving, however. She did not fall and did not have any trauma. Nurse reports that patient required 2 people to help her from wheelchair to the bed. Reportedly she can normally ambulate on her own. Son-in-law states that she seems to have a left facial droop, noticed by the nurses on arrival. He says this is not typical for her. He also states that she is not using her left arm as well as she normally would. He says that she has no deficits left from her surgery from her brain tumor. She does not have any hemiparesis, she normally ambulates with a cane only. He however does state that she has problems finding things in her visual [place] chronically. Related Data Home Medications Medication Instructions Recorded Confirmed coenzyme Q10 100 mg capsule (Co 100 mg PO DAILY Supplement 09/19/18 03/17/22 Q-10) atorvastatin 40 mg tablet 40 mg PO DAILY Cholesterol 09/01/19 03/17/22 multivitamin 1 tab PO DAILY Supplement 07/30/20 03/17/22 carboxymethylcellulose 1 1 drp ophthalmic (eye) HS eyes 05/03/21 03/17/22 %-glycerin 0.9 % eye gel drops (Refresh Optive) erythromycin 5 mg/gram (0.5 %) eye 1 applic ophthalmic (eye) DAILY 11/21/21 03/17/22 ointment eyes apixaban 2.5 mg tablet (Eliquis) 2.5 mg PO BID Blood thinner 03/17/22 03/17/22 digoxin 125 mcg (0.125 mg) tablet 125 mcg PO DAILY Heart rhythm 03/17/22 03/17/22 memantine 10 mg tablet 10 mg PO BID mood 03/17/22 03/17/22 metoprolol succinate 25 mg 25 mg PO DAILY blood pressure 03/17/22 03/17/22 tablet,extended release 24 hr Allergies Allergy/AdvReac Type Severity Reaction Status Date / Time ertapenem [From [facility]] Allergy Severe SEIZURE Verified 11/21/21 14:20 dexamethasone Allergy Intermediate I-HIVES Verified 11/21/21 14:20 donepezil AdvReac Intermediate nausea, Verified 11/21/21 15:41 vomiting, lethargy, confusion Sulfa (Sulfonamide AdvReac Mild VOMITING Verified 11/21/21 14:20 Antibiotics) rivastigmine AdvReac nausea/vomi Verified 11/21/21 14:20 ting [facility] <Kade Stout MD - Last Filed: 03/17/22 20:12> [facility] Disclaimer: The information contained in this section may have been updated after the patient was seen, as this information can be updated by other users. Medical History CAD (coronary artery disease) Chest pain, atypical Dizziness Dyspnea Dyspnea is resolved at this time. Pt denies shortness of breath. HHD (hypertensive heart disease) HLD (hyperlipidemia) Indigestion Palpitations Sinus bradycardia Sinus pause Snoring Social History Smoking Status: Never smoker second hand exposure: No alcohol intake: never substance use type: denies use current occupational status: retired Travel in the last 8 weeks: None household members: none housing: [facility]
[2022-03-17 18:31] LABS: Chloride 105 mmol/L (98-107)
[2022-03-17 18:32] LABS: Basophils # 0.1 K/mm3 (0-0.2); Basophils % 0.8 % (0.1-2.0); Eosinophils # 0.1 K/mm3 (0.0-0.4); Eosinophils % 0.6 % (0.1-12.0); Hematocrit 44.5 % (37.0-47.0); Hemoglobin 14.6 g/dL (12.2-16.2); Lymphocytes # 2.2 K/mm3 (0.7-4.5); Lymphocytes % 21.2 % (10-50); Mean Corpuscular HGB Conc 32.7 g/dL (31.8-35.4); Mean Corpuscular Hemoglobin 32.5 pg (27.0-31.2); Mean Corpuscular Volume 99.4 fl (81-99); Mean Platelet Volume 11.5 fl (7.4-10.4); Monocytes # 0.6 K/mm3 (0.1-1.0); Monocytes % 5.8 % (1.7-9.3); Neutrophils # 7.4 K/mm3 (1.8-7.8); Neutrophils % 71.5 % (37.0-80.0); Platelet Count 160 K/mm3 (142-424); Potassium 3.7 mmoL/L (3.5-5.1); Red Blood Count 4.48 M/mm3 (4.20-5.40); Red Cell Distribution Width 12.9 % (11.5-17.5); Sodium 139 mmol/L (136-145); White Blood Count 10.3 K/mm3 (4.8-10.8)
--- NOTE | 2022-03-17 18:34 | PC.NURSE ---
Dr Stout talking to [facility] about patient.
[2022-03-17 18:35] LABS: Anion Gap 11.7 mEq/L (5-15); Blood Urea Nitrogen 17 mg/dl (7-17); Calcium 9.9 mg/dl (8.4-10.2); Carbon Dioxide 26 mmol/L (22.0-30.0); Creatinine Clearance Estimated 39 mL/min (50-200); Estimated Glomerular Filt Rate 69 ml/min (>60); GFR (African American) 84 ML/MIN (>60); Glucose 107 mg/dl (74-100)
--- NOTE | 2022-03-17 19:07 | CT_ITS ---
PROCEDURE INFORMATION: Exam: CTA Head With Contrast, Arteriography Exam date and time: 03/17/2022 7:36 PM Age: 81 years old Clinical indication: Stroke-like symptoms; Lt upper extremity weakness; Additional info: L facial droop, L arm weakness, trouble walking TECHNIQUE: Imaging protocol: Computed tomographic angiography of the head with contrast. Exam focused on the arteries. 3D rendering (Not supervised by radiologist): MIP and/or 3D reconstructed images were created by the technologist. Radiation optimization: All CT scans at this facility use at least one of these dose optimization techniques: automated exposure control; mA and/or kV adjustment per patient size (includes targeted exams where dose is matched to clinical indication); or iterative reconstruction. Contrast material: ISOVUE 370; Contrast volume: 100 ml; Contrast route: INTRAVENOUS (IV); COMPARISON: CT HEAD/BRAIN WO CON 03/17/2022 6:09 PM FINDINGS: ANTERIOR CIRCULATION: Right internal carotid artery: Atherosclerosis of the right internal carotid artery, with mild stenoses. No aneurysm. Right middle cerebral artery: Severely decreased flow involving an M2 segment of the right MCA, with occlusion of an M3 segment. Right anterior cerebral artery: No occlusion or significant stenosis. No aneurysm. Left internal carotid artery: Atherosclerosis of the left internal carotid artery, with mild and moderate stenoses. No aneurysm. Left middle cerebral artery: No occlusion or significant stenosis. No aneurysm. Left anterior cerebral artery: No occlusion or significant stenosis. No aneurysm. POSTERIOR CIRCULATION: Right vertebral artery: Decreased enhancement/flow involving the V4 segment the right vertebral artery. Left vertebral artery: A dominant left vertebral artery is identified. No significant stenosis or occlusion of the left vertebral artery. Basilar artery: No occlusion or significant stenosis. No aneurysm. Right posterior cerebral artery: Persistence of the origin of the right CERTIFIED PROSTHETIST, without significant stenosis or occlusion. No aneurysm. 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 No significant stenosis or occlusion of the remaining left CERTIFIED PROSTHETIST. The left posterior communicating artery is patent. No aneurysm. Cavernous Sinus: Evaluation of dural venous sinuses is limited by suboptimal dural venous enhancement. Brain: Encephalomalacia again visualized involving the right frontal and temporal lobes. Refer to the CT head report from the same day. Cerebral ventricles: Stable ventriculomegaly. Bones/joints: Right-sided craniectomy defect is again visualized. Soft tissues: Postoperative changes. IMPRESSION: 1. Severely decreased flow involving an M2 segment of the right MCA, with occlusion of an M3 segment. 2. Decreased enhancement/flow involving the V4 segment the right vertebral artery. 3. A dominant left vertebral artery is identified. 4. Atherosclerosis of the internal carotid arteries, with stenoses bilaterally. 5. Additional findings described above.
--- NOTE | 2022-03-17 19:08 | CT_ITS ---
PROCEDURE INFORMATION: Exam: CTA Neck With Contrast Exam date and time: 03/17/2022 7:36 PM Age: 81 years old Clinical indication: Stroke-like symptoms; Lt upper extremity weakness; Additional info: L facial weakness, L arm weakness, trouble walking TECHNIQUE: Imaging protocol: Computed tomographic angiography of the neck with contrast. 3D rendering (Not supervised by radiologist): MIP and/or 3D reconstructed images were created by the technologist. Radiation optimization: All CT scans at this facility use at least one of these dose optimization techniques: automated exposure control; mA and/or kV adjustment per patient size (includes targeted exams where dose is matched to clinical indication); or iterative reconstruction. Contrast material: ISOVUE 370; Contrast volume: 100 ml; Contrast route: INTRAVENOUS (IV); COMPARISON: CSWO CT CERVICAL SPINE W/O CONT 08/17/2015 4:37 PM FINDINGS: Right common carotid artery: Artifact limits evaluation of the proximal right common carotid artery. Increased tortuosity of the right common carotid artery. Mild stenosis of the distal right common carotid artery. Atherosclerosis. Right internal carotid artery: Atherosclerotic changes are visualized of the proximal right internal carotid artery, with less than 50% stenosis. Increased tortuosity of the right internal carotid artery. Right external carotid artery: Mild stenosis of the right external carotid artery. Atherosclerosis. Left common carotid artery: Moderate stenosis at the origin of the left common carotid artery. Atherosclerosis. Left internal carotid artery: Less than 50% stenosis of the proximal left internal carotid artery. Atherosclerosis. Increased tortuosity of the left internal carotid artery. Left external carotid artery: No occlusion or significant stenosis. Right vertebral artery: Hypoplasia of the right vertebral artery. Occlusion of the distal V2 and proximal V3 segments of the right vertebral artery, with reconstitution of flow more distally. Dissection cannot be excluded. Left vertebral artery: No significant stenosis. No dissection or occlusion. A dominant left vertebral artery is visualized. Right subclavian artery: Artifact limits evaluation of the right subclavian artery, without occlusion. Left subclavian artery: Moderate stenosis at the origin of the left subclavian artery. Atherosclerotic changes are visualized. Aorta: Atherosclerosis of the aortic arch. Fluid is seen in the superior aortic recess. Paranasal sinuses: Paranasal sinus disease is visualized. Nasal cavity: Abnormal density within the nasal cavity suggestive of polyposis. Thyroid: Thyroid nodules are identified bilaterally. Within the left thyroid lobe, there is a 9 mm nodule. Calcifications are also seen within the thyroid. Soft tissues: No significant soft tissue swelling. Bones/joints: Degenerative changes are seen involving the cervical and upper thoracic spine. Varying degrees of neural foraminal narrowing are identified at multiple cervical levels. Mild anterolisthesis of C4 on C5, C7 on T1, and T2 on T3. Mild anterior wedging/compression fracture of the T2 vertebral body, which is chronic compared to the prior study. Lungs: Scattered small nodules are identified within the left upper lobe of the lung. There is a semi-solid 5 mm nodule within the left upper lobe on series 3, image 13. IMPRESSION: 1. Hypoplasia of the right vertebral artery. Occlusion of the distal V2 and proximal V3 segments of the right vertebral artery, with reconstitution of flow more distally. Dissection cannot be excluded. 2. Bilateral common carotid arteries stenoses.
--- NOTE | 2022-03-17 19:09 | XR_ITS ---
PROCEDURE INFORMATION: Exam: XR Chest Exam date and time: 03/17/2022 7:54 PM Age: 81 years old Clinical indication: Other: Stroke symptoms; Prior surgery; Surgery date: 6+ months; Additional info: Stroke SX TECHNIQUE: Imaging protocol: Radiologic exam of the chest. Views: 1 view. COMPARISON: CR XR CHEST PORTABLE 09/10/2021 1:25 PM FINDINGS: Lungs: Increased interstitial markings are visualized within the left lung, with progression. Interstitial edema and atypical infection are within the differential. Left basilar atelectasis. Pleural spaces: No pleural effusion. No pneumothorax. Heart/Mediastinum: The cardiac silhouette appears enlarged. Vasculature: There is atherosclerotic calcification of the aortic arch. Bones/joints: Dextroscoliosis of the thoracic spine. Osteopenia. Hypertrophic degenerative changes are noted involving the spine. Mild abnormal morphology of several left-sided ribs, suggestive of nonacute fractures. This involves the left 3rd through 6th ribs. Soft tissues: Multiple radiopacities are identified within the soft tissues of the right upper extremity, right axilla, and lateral to the right chest wall. Calcifications or postoperative changes are considered. IMPRESSION: 1. The cardiac silhouette appears enlarged. 2. Increased interstitial markings are visualized within the left lung, with progression. Interstitial edema and atypical infection are within the differential. Clinical correlation recommended. 3. Left basilar atelectasis. 4. Mild abnormal morphology of several left-sided ribs, suggestive of nonacute fractures. This involves the left 3rd through 6th ribs, with abnormal morphology of these ribs on the prior study. Clinical correlation is recommended.
--- NOTE | 2022-03-17 19:15 | ECG_ITS ---
APPROVED REPORT Exam: Resting ECG HR:77 bpm ECG Measurements Heart Rate 77 AXES QRSd 84 QRS 74 QT 362 T 28 QTc 394 Conclusion ATRIAL FIBRILLATION NONSPECIFIC ST & T-WAVE ABNORMALITY ABNORMAL RHYTHM ECG UNCONFIRMED REPORT Electronically signed by : Wilner Hussein MD 03/18/2022 12:12:11
[2022-03-17 19:30] LABS: Microscopic, Urine URINE MICROSCOPIC (MICROSCOPIC)
--- NOTE | 2022-03-17 19:30 | PC.NURSE ---
Pt assisted to use bedpan. Urine specimen obtained at this time. Pt given pillow and made comfortable. No other needs voiced at this time.
[2022-03-17 19:32] LABS: Appearance,Urine CLEAR (Clear); Bilirubin,Urine Negative (Negative); Blood, Urine Negative (Negative); Color,Urine YELLOW (Yellow); Glucose,Urine (UA) Negative (Negative); Ketones,Urine Negative (Negative); Leukocyte Esterase,Urine Negative (Negative); Nitrate,Urine Negative (Negative); Protein,Urine Negative (Negative); Specific Gravity, Urine 1.025 (1.005-1.030); Urobilinogen,Urine 0.2 EU/dl (0.2)
--- NOTE | 2022-03-17 19:35 | PC.NURSE ---
Pt gone to RAD for CT
--- NOTE | 2022-03-17 19:43 | PC.NURSE ---
PT back from RAD
--- NOTE | 2022-03-17 19:43 | PC.NURSE ---
RAD at for CXR
[2022-03-17 19:45] LABS: Troponin I < 0.01 ng/ml (0.00-0.034)
[2022-03-17 19:57] LABS: Bacteria,Urine 1+ /lpf; RBC,Urine Occasional #/hpf (0-3); WBC,Urine Occasional #/hpf (0-3)
--- NOTE | 2022-03-17 21:04 | PC.NURSE ---
Dr. Yeung [facility]
--- NOTE | 2022-03-17 21:08 | PC.NURSE ---
decline transfer- not intervention surgery required-. would like to s/w Dr. Hussein
--- NOTE | 2022-03-17 21:09 | PC.NURSE ---
Dr. Yeung s/w Dr. Hussein
[2022-03-17 21:29] LABS: Coronavirus 19, PCR Not Detected (NotDetected); Influenza A, PCR Not Detected (NotDetected); Influenza B, PCR Not Detected (NotDetected)
--- NOTE | 2022-03-17 21:58 | PC.NURSE ---
PT readjusted in bed, and light turned off. No other needs voiced at this time.
--- NOTE | 2022-03-17 21:58 | PC.NURSE ---
attempted to call report, no answer. Will call back.
--- NOTE | 2022-03-17 22:56 | PC.NURSE ---
PT ARRIVED TO FLOOR VIA WHEELCHAIR @ 22:47
[2022-03-18] VITALS (7 sets, daily range): BP systolic 118–128; BP diastolic 66–76; PULSE 63–90; RESP 18–24; TEMP 36.4–36.9; O2SAT 96–99
--- NOTE | 2022-03-18 00:16 | PC.NURSE ---
PATIENT ARRIVED TO THE MED SURG UNIT AT 2250 VIA STRETCHER ACCOMPANIED BY SON IN LAW WHO IS HER POA. HISTORY OBTAINED FROM CHART/POA/ AND SOME FROM THE PATIENT WHO HAS DEMENTIA. ADMISSION DIAGNOSIS IS ACUTE CVA.
--- NOTE | 2022-03-18 02:25 | PC.NURSE ---
PATIENT IS ABLE TO MAKE NEEDS KNOWN . ALERT AND ORIENTED TO SELF. KNOWS BIRTHDAY BUT THINKS SHE IS 40 YRS OLD. HAS SUNDOWNERS/DEMENTIA ACCORDING TO SON IN LAW WHO IS HER POA. SPEECH IS UNDERSTANDABLE, MUMBLES SOMETIMES. HEARING IS GOOD BUT REQUIRES GLASSES DUE TO POOR VISION. RIGHT EYE 3MM. LEFT EYE 4MM. BOTH REACTIVE TO LIGHT. TONGUE IS MIDLINE, DROOPING NOTED AT LEFT CORNER OF MOUTH. 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 DP FLEXION EQUAL. ABLE TO HOLD LEGS UP OFF THE BED (RIGHT LEG DRIFTED SLIGHTLY). 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 NO STRANGLING OR CHOKING WHILE DRINKING WATER. DENIES HEADACHE. SAID SHE HAD SOME PRESSURE IN HER HEAD WHILE IN THE ED. DENIES NAUSEA OR PAIN.
[2022-03-18 07:33] LABS: Basophils % 0.3 % (0.1-2.0); Eosinophils % 0.1 % (0.1-12.0); Hematocrit 45.1 % (37.0-47.0); Hemoglobin 14.6 g/dL (12.2-16.2); Lymphocytes % 21.5 % (10-50); Mean Corpuscular HGB Conc 32.5 g/dL (31.8-35.4); Mean Corpuscular Hemoglobin 31.9 pg (27.0-31.2); Mean Corpuscular Volume 98.4 fl (81-99); Mean Platelet Volume 10.7 fl (7.4-10.4); Monocytes # 0.6 K/mm3 (0.1-1.0); Neutrophils # 6.8 K/mm3 (1.8-7.8); Neutrophils % 72.1 % (37.0-80.0); Platelet Count 156 K/mm3 (142-424); Red Blood Count 4.59 M/mm3 (4.20-5.40); Red Cell Distribution Width 12.9 % (11.5-17.5); White Blood Count 9.5 K/mm3 (4.8-10.8)
[2022-03-18 07:34] LABS: Chloride 105 mmol/L (98-107); Potassium 3.7 mmoL/L (3.5-5.1); Sodium 136 mmol/L (136-145)
[2022-03-18 07:36] LABS: Blood Urea Nitrogen 15 mg/dl (7-17); Creatinine Clearance Estimated 40 mL/min (50-200); Estimated Glomerular Filt Rate 81 ml/min (>60); GFR (African American) 98 ML/MIN (>60)
[2022-03-18 07:37] LABS: Anion Gap 9.7 mEq/L (5-15); Calcium 9.1 mg/dl (8.4-10.2); Carbon Dioxide 25 mmol/L (22.0-30.0); Glucose 97 mg/dl (74-100); Magnesium 1.9 mg/dl (1.6-2.3)
--- NOTE | 2022-03-18 09:09 | EXP.HP ---
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 fib who presented to [facility] ER last night with reports of left sided weakness, facial droop and inability to walk. These symptoms all started around 10 pm on 03/16/22 , when she [facility] Her healthcare specialist had to basically pick her up out of the floor. She reported noticed the facial droop and weakness at that point. She was evaluated in the ER the next evening and was found to have an acute CVA with a right MCA occlusion. Stroke team was consulted at and they did not recommend transfer to due to almost 24 hours passing since symptoms began. Patient was given one dose of Lovenox and admitted for further evaluation and management. [facility] Disclaimer: The information contained in this section may have been updated after the patient was seen, as this information can be updated by other users. Medical History (Updated 03/18/22 @ 15:57 by Israel Blanco MD) CAD (coronary artery disease) Chest pain, atypical Dementia Dizziness HHD (hypertensive heart disease) History of left heart catheterization HLD (hyperlipidemia) Meningioma, cerebral Osteomyelitis of the skull Palpitations Sinus bradycardia Sinus pause Snoring Surgical History (Updated 03/18/22 @ 15:52 by Israel Blanco MD) History of breast biopsy History of colonoscopy History of craniotomy History of resection of meningioma Family History (Updated 03/18/22 @ 00:06 by Peri Yee RN) No significant family history Social History (Updated 03/18/22 @ 00:20 by Roselyn Lewis RN) Smoking Status: Never smoker second hand exposure: No alcohol intake: never substance use type: denies use current occupational status: retired Travel in the last 8 weeks: None household members: none housing: assisted living facility current occupational exposures/hazards: No caffeine: Yes Review of Systems Constitutional Constitutional: Denies chills, Denies fever(s) and Reports weakness Eyes Eyes: Reports change in vision ENT Ears, Nose, Mouth, and Throat: Denies dizziness and Denies otalgia *Cardiovascular Cardiovascular: Denies chest pain and Denies dyspnea *Respiratory Respiratory: Denies dyspnea *Gastrointestinal Gastrointestinal: Denies change in bowel habits and Denies change in stool character *Genitourinary Genitourinary: Denies difficulty voiding *Musculoskeletal Musculoskeletal: Denies muscle cramps and Denies numbness Integumentary/Breasts Skin/Breast: Denies rash *Neurologic Neurologic: Reports confusion, Denies dizziness, Reports memory loss, Denies numbness and Reports weakness Psychiatric Psychiatric: Reports confusion and Reports memory loss Meds Home Medications and Allergies Home Medications Medication Instructions Recorded Confirmed Type atorvastatin 40 mg tablet 40 mg PO DAILY Cholesterol 09/01/19 03/18/22 History multivitamin 1 tab PO DAILY Supplement 07/30/20 03/18/22 History carboxymethylcellulose 1 1 drp ophthalmic (eye) HS DRY EYES 05/03/21 03/18/22 History %-glycerin 0.9 % eye gel drops (Refresh Optive) erythromycin 5 mg/gram (0.5 %) eye 1 applic ophthalmic (eye) DAILY 11/21/21 03/18/22 History ointment Infection apixaban 2.5 mg tablet (Eliquis) 2.5 mg PO BID A FIB 03/17/22 03/18/22 History digoxin 125 mcg (0.125 mg) tablet 125 mcg PO DAILY Heart rhythm 03/17/22 03/18/22 History memantine 10 mg tablet 10 mg PO BID MEMORY 03/17/22 03/18/22 History metoprolol succinate 25 mg 25 mg PO BID Hypertension 03/17/22 03/18/22 History tablet,extended release 24 hr New Prescriptions to Start Prescriptions: Allergies Allergy/AdvReac Type Severity Reaction Status Date / Time ertapenem [From DARIO] Allergy Severe SEIZURE Verified 11/21/21 14:20 dex
--- NOTE | 2022-03-18 09:27 | PC.NURSE ---
Called and left message with special education educational assistant pt about eval.
--- NOTE | 2022-03-18 15:10 | HMH.PHAINT1 ---
Pharmacy Intervention Comments: MEDICATION RECONCILIATION COMPLETED ON PATIENT USING EXTERNAL FILL HISTORY FROM PHARMACY AND LIST FROM CARDIOLOGY OFFICE. -ELI VANN, SASHAD
--- NOTE | 2022-03-18 17:40 | HMH.PTEV ---
Physical Therapy Evaluation Rehab PT IP Evaluation Start: 03/18/22 09:16 Freq: ONCE Status: Active Protocol: Document 03/18/22 17:34 PHORNE (Rec: 03/18/22 17:39 PHORNE [id number]) Subjective/History History History 81 yowf adm to [facility] S/P R MCA CVA with L hemiparesis. She also has hx of prior R side craniotony for tumor removal and lives at a [place] [facility]. She reports no c/o this pm, but exhibits significant L side neglect and unable to maintain full upright sitting balance. Subjective Subjective No current c/o. Rehab PT IP Eval Objective Appearance Patient Behavior Appropriate Patient Orientation Person Difficulty following instructions mild Speech Pattern Appropriate Ambulation Patient Able to Ambulate No Balance Ability to Arise Able, uses arms to help Sitting Balance Leans or slides in chair Standing Balance Unsteady Dynamic Sitting Balance Ability Poor Dynamic Standing Balance Ability Zero Transfers Bed Transfer Ability Maximum x 1 (75% assist) Chair Transfer Ability Maximum x 1 (75% assist) Sit to Stand Bed Transfer Ability Maximum x 1 (75% assist) Sit to Stand Chair Transfer Ability Maximum x 1 (75% assist) ROM LUE PT ROM Status ABN Abnormal ROM Comment mild/mod spacticty MMT LUE PT MMT ABN Abnormal MMT Grade grossly 2/5 Rehab PT IP prob,goals,plan Problems Date of Evaluation: 03/18/22 PT IP Problems Bed Mobility,Transfers,Gait, Balance Rehab Potential Rehab Potential Good Plan PT Intervention Plan Bed Mobility,Transfers,Gait, Safety,Therapeutic Exercise PT Plan Frequency BID Duration LOS Discharge Goals Bed Transfer Ability Moderate x 1 (50% assist) Sit to Stand Chair Transfer Ability Moderate x 1 (50% assist) Discharge Plan PT Discharge Plan Pt is currently most appropriate for rehab placement once medically stable. G -code Required No Eval Complexity Eval Charge Codes 39531 - Moderate Complexity PHYSICIAN CERTIFICATION: I certify the specified therapy services for Kiara Orozco are required, authorized, and reviewed every 30 days.
--- NOTE | 2022-03-18 19:16 | HMH.SLDYSPHA ---
Speech & Language Evaluation Speech/Language Dysphagia Evaluation Start: 03/18/22 19:06 Freq: ONCE Status: Active Protocol: Document 03/18/22 19:07 ANAYELIRADHA (Rec: 03/18/22 19:16 [email or web address] [id number]) Dysphagia Assess/Goals/Plan Assessment Date of Evaluation: 03/18/22 Evaluation Type Initial Certification Does Patient Qualify for Service No Qualify/Failure Comment Based on assessment results of the CSE, pt does not qualify for skilled speech therapy services 2' no overt s/sxs of aspiration therefore speech services are not warranted at this time. Recommendations PHYSICIAN CERTIFICATION: The specified therapy services are required, authorized, and reviewed every 30 days. Diet Recommendations Normal Liquid Type Recommendations Normal/Thin SL Swallow Guidelines Standard Aspiration Prec. Dysphagia Swallow Precautions/Strategies Sitting Upright (90 deg),Small Bites and Sips,Alternate Liquids/Solids Plan Pt/Guardian verbally ack understanding Yes of dx/prognosis/goals G -code Required No Education Instructions provided CSE results and recommendations discussed with pt and nurse who expressed understanding. 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 She had fallen in the home in which she resides and caregiver had to pick her up off floor. She was evaluated in the ER and was found to have an acute CVA with a right MCA occlusion. PMH includes: CAD (coronary artery disease), Chest pain, atypical, Dementia, HHD ( hypertensive heart disease), History of left heart catheterization, HLD ( hyperlipidemia), Meningioma, cerebral, Osteomyelitis of the skull and Sinus bradycardia Pt/Caregiver Concerns Pt oversensitive about swallowing per self and nursing reports, stated she
[2022-03-19] VITALS (9 sets, daily range): BP systolic 111–132; BP diastolic 47–76; PULSE 60–83; RESP 16–18; TEMP 36.6–37.9; O2SAT 96–97; BMI 21.9
--- NOTE | 2022-03-19 04:17 | PC.NURSE ---
PT ALERT AND ORIENTED TO SELF. PT ABLE TO TELL ME HER NAME AND BIRTHDAY. PT IS FATIGUED AND HAS SLEPT MAJORITY OF THE NIGHT. PT WAS ABLE TO TAKE NIGHT TIME MEDS (ONE AT A TIME) WITH SIPS OF WATER WITHOUT ISSUE. NO COUGHING OR CHOKING OBSERVED. IV INFUSING PER ORDER. PT DOES HAVE A SLIGHT FACIAL DROOP TO LEFT SIDE. ABA TUTOR STRONG ON RIGHT SIDE, WEAK ON LEFT SIDE. PUPILS EQUAL AND REACTIVE. REMAINS ON RA WITH O2 SAT > 90%. NO NEEDS VOICED. BED ALARM ON , CALL LIGHT IN REACH.
--- NOTE | 2022-03-19 05:50 | PC.NURSE ---
PT HARDER TO AROUSE THIS AM. PT FOLLOWING MOST COMMANDS, EXCEPT STATING NAME/BIRTHDAY AND OPENING EYES. PT WILL SQUEEZE MY HANDS, PUSH AGAINST MY HANDS WITH HER FEET, WILL ANSWER YES OR NO WHEN I ASK IF SHE NEEDS ANYTHING OR IF SHES DOING OKAY. DR. WILKERSON NOTIFIED OF CHANGE. AM LABS ORDERED. CALL LIGHT IN REACH. BED ALARM ON.
[2022-03-19 06:21] LABS: POC Glucose,Bedside 87 (70-110)
--- NOTE | 2022-03-19 06:25 | PC.NURSE ---
RE-ATTEMPTED PTS NEURO ASSESSMENT. THIS TIME PT WAS ABLE TO STATE NAME, , YEAR, AND PLACE. SHE WAS ABLE TO LIFT X 4 EXTREMITIES. PT ABLE TO SMILE, AND OPEN EYES. PUPILS EQUAL.
--- NOTE | 2022-03-19 07:15 | EXP.ACUTE.PN ---
Subjective *Date: 03/19/22 *Time: 07:15 Interval history: Pt with no new complaints this morning. Medical Exam Vital signs and Labs for Last 24 Hours: Vital Signs Temp Pulse Pulse Resp BP Pulse Ox 03/19/22 04:00 60 03/19/22 04:00 99.3 F 83 16 115/76 97 03/19/22 00:00 70 03/18/22 20:00 70 03/19/22 00:00 100.3 F H 80 16 125/54 L 96 03/18/22 20:00 98.5 F 70 20 128/70 97 03/18/22 16:00 70 03/18/22 12:00 70 03/18/22 08:00 80 03/18/22 16:00 98.1 F 71 18 126/66 97 03/18/22 12:00 97.6 F 70 22 126/66 99 03/18/22 10:57 63 03/18/22 08:00 97.9 F 63 24 120/75 96 Intake and Output 03/18/22 03/18/22 03/19/22 15:59 23:59 07:59 Intake Total 240 / 420 120 / 420 600 / 600 Output Total 200 / 250 50 / 250 0 / 0 Balance 40 / 170 70 / 170 600 / 600 Intake: Intake, Oral Amount 240 / 420 120 / 420 0 / 0 Intake, Total IV Amount 600 / 600 0.9 % Sodium Chloride 1,000 ml 600 / 600 @ 50 mls/hr IV .Q20H [facility] Rx#: [id number] Output: Output, Urine Amount 200 / 250 50 / 250 0 / 0 Other: Number of Unmeasured Voids 1 Number of Bowel Movements 1 Weight 119 lb 6 oz Patient Weight 03/19/22 23:59 Weight 119 lb 6 oz Laboratory Results - last 24 hr 03/18/22 06:43: WBC 9.5, RBC 4.59, Hgb 14.6, Hct 45.1, MCV 98.4, MCH 31.9 H, MCHC 32.5, RDW 12.9, Plt Count 156, MPV 10.7 H, Neut % (Auto) 72.1, Lymph % (Auto) 21.5, [place] % (Auto) 6.0, Eos % (Auto) 0.1, Baso % (Auto) 0.3, Neut # (Auto) 6.8, Lymph # (Auto) 2.0, [place] # (Auto) 0.6, Eos # (Auto) 0.0, Baso # (Auto) 0.0 03/18/22 06:43: Sodium 136, Potassium 3.7, Chloride 105, Carbon Dioxide 25, Anion Gap 9.7, BUN 15, Creatinine 0.70, Estimated Creat Clear 40, Estimated GFR 81, Est GFR ( Amer) 98, Glucose 97, Calcium 9.1, Magnesium 1.9 03/19/22 06:06: POC Glucose 87 I & O for Labs for Last 24 Hours: Intake & Output 03/16/22 03/17/22 03/18/22 03/19/22 23:59 23:59 23:59 23:59 Intake Total 420 / 420 600 / 600 Output Total 0 / 0 250 / 250 0 / 0 Balance 0 / 60 170 / 170 600 / 600 Weight 122 lb 2 oz 119 lb 6 oz Constitutional: Present no acute distress Respiratory: Present normal respiratory effort Cardiac: Present Reg Rate and Rhythm GI: Present normal bowel sounds; Absent tenderness Extremities: Present normal inspection and full ROM Skin: Present intact; Absent erythema Neuro: Present Weakness (left UE), alert and awake Assessment and Plan *Assessment and plan (1) Acute right arterial ischemic stroke, MCA (middle cerebral artery): Status: Acute Category: Medical Code(s): I63.511 - Cerebral infarction due to unspecified occlusion or stenosis of right middle cerebral artery (2) Acute CVA (cerebrovascular accident): Status: Acute Category: Medical Code(s): I63.9 - Cerebral infarction, unspecified (3) Left hemiparesis: Status: Acute Category: Medical Code(s): G81.94 - Hemiplegia, unspecified affecting left nondominant side (4) PAF (paroxysmal atrial fibrillation): Status: Chronic Category: Medical Code(s): I48.0 - Paroxysmal atrial fibrillation (5) CAD (coronary artery disease): Status: Chronic Qualifiers: Coronary Disease-Associated Artery/Lesion type: [place] artery [place] vs. transplanted heart: [place] heart Associated angina: without angina Qualified Code(s): I25.10 - Atherosclerotic heart disease of [place] coronary artery without angina pectoris Category: Medical Code(s): I25.10 - Atherosclerotic heart disease of [place] coronary artery without angina pectoris (6) HLD (hyperlipidemia): Status: Chronic Qualifiers: Hyperlipidemia type: mixed hyperlipidemia Qualified Code(s): E78.2 - Mixed hyperlipidemia Category: Medical Code(s): E78.5 - Hyperlipidemia, unspecified (7) HHD (hypertensive heart disease):
[2022-03-19 08:36] LABS: Basophils % 0.5 % (0.1-2.0); Eosinophils % 0.4 % (0.1-12.0); Hematocrit 44.9 % (37.0-47.0); Hemoglobin 14.6 g/dL (12.2-16.2); Lymphocytes # 2.3 K/mm3 (0.7-4.5); Lymphocytes % 24.2 % (10-50); Mean Corpuscular HGB Conc 32.4 g/dL (31.8-35.4); Mean Corpuscular Hemoglobin 31.7 pg (27.0-31.2); Mean Corpuscular Volume 97.7 fl (81-99); Monocytes # 0.7 K/mm3 (0.1-1.0); Monocytes % 7.5 % (1.7-9.3); Neutrophils # 6.3 K/mm3 (1.8-7.8); Neutrophils % 67.5 % (37.0-80.0); Platelet Count 154 K/mm3 (142-424); Red Cell Distribution Width 12.9 % (11.5-17.5); White Blood Count 9.3 K/mm3 (4.8-10.8)
[2022-03-19 08:39] LABS: Chloride 109 mmol/L (98-107); Potassium 3.6 mmoL/L (3.5-5.1); Sodium 136 mmol/L (136-145)
[2022-03-19 08:42] LABS: Blood Urea Nitrogen 17 mg/dl (7-17); Creatinine Clearance Estimated 39 mL/min (50-200); Estimated Glomerular Filt Rate 69 ml/min (>60); GFR (African American) 84 ML/MIN (>60)
[2022-03-19 08:43] LABS: Anion Gap 7.6 mEq/L (5-15); Calcium 8.5 mg/dl (8.4-10.2); Carbon Dioxide 23 mmol/L (22.0-30.0); Glucose 84 mg/dl (74-100)
[2022-03-20] VITALS (9 sets, daily range): BP systolic 104–140; BP diastolic 57–87; PULSE 60–83; RESP 16–18; TEMP 36.4–36.9; O2SAT 92–99; BMI 21.4
--- NOTE | 2022-03-20 07:55 | PC.NURSE ---
NO NEW CHANGES SINCE PREVIOUS ASSESSMENT. PT HAS RESTED WELL THIS SHIFT. NO NEW COMPLAINTS OR NEEDS VOICED. CALL LIGHT IN REACH. IV INFUSING PER ORDER. BED ALARM ON.
--- NOTE | 2022-03-20 08:25 | EXP.PN ---
Subjective *Date: 03/20/22 *Time: 11:29 Interval history: Think she is better. Is out of bed in the chair but does not remember who helped her. Does not remember visits by PT/OT. She states it hurts when she voids. She states she is eating well. She denies chest pain and shortness of breath. Exam Data for Last 24 hours Vital signs and Labs for Last 24 Hours: Temp Pulse Resp BP Pulse Ox 97.5 F L 67 17 104/60 L 98 03/20/22 07:30 03/20/22 07:30 03/20/22 07:30 03/20/22 07:30 03/20/22 07:30 Laboratory Results - last 24 hr 03/19/22 07:16: WBC 9.3, RBC 4.60, Hgb 14.6, Hct 44.9, MCV 97.7, MCH 31.7 H, MCHC 32.4, RDW 12.9, Plt Count 154, MPV 11.0 H, Neut % (Auto) 67.5, Lymph % (Auto) 24.2, [place] % (Auto) 7.5, Eos % (Auto) 0.4, Baso % (Auto) 0.5, Neut # (Auto) 6.3, Lymph # (Auto) 2.3, [place] # (Auto) 0.7, Eos # (Auto) 0.0, Baso # (Auto) 0.0 03/19/22 07:16: Sodium 136, Potassium 3.6, Chloride 109 H, Carbon Dioxide 23, Anion Gap 7.6, BUN 17, Creatinine 0.80, Estimated Creat Clear 39, Estimated GFR 69, Est GFR ( Amer) 84, Glucose 84, Calcium 8.5 I & O for Last 24 hours: Intake & Output 03/17/22 03/18/22 03/19/22 03/20/22 11:59 11:59 11:59 11:59 Intake Total 180 / 180 840 / 840 2350 / 2350 Output Total 200 / 200 250 / 250 400 / 400 Balance -20 / -20 590 / 590 1950 / 1950 Weight 122 lb 2 oz 119 lb 0.794 oz 116 lb 7 oz Constitutional Constitutional: no acute distress Comments: Sitting in comfort chair at bedside. Awakened for exam. Has completed breakfast. *Routine Respiratory Exam Respiratory: Present CTA bilaterally (Anteriorly and posteriorly) *Routine Cardiovascular Exam Cardiovascular: Present RRR *Routine Abdominal Exam Abdominal: Present soft and normoactive bowel sounds; Absent tenderness or distended *Routine Extremities Exam Extremities: Absent edema or calf tenderness *Routine Neurological Exam Neurological: Present alert, oriented X3, moving all extremities and normal speech Comments: Some weakness on the left side. Poor short-term memory Assessment and Plan *Assessment and plan (1) Acute right arterial ischemic stroke, MCA (middle cerebral artery): Status: Acute Category: Medical Code(s): I63.511 - Cerebral infarction due to unspecified occlusion or stenosis of right middle cerebral artery (2) Acute CVA (cerebrovascular accident): Status: Acute Category: Medical Code(s): I63.9 - Cerebral infarction, unspecified (3) Left hemiparesis: Status: Acute Category: Medical Code(s): G81.94 - Hemiplegia, unspecified affecting left nondominant side (4) PAF (paroxysmal atrial fibrillation): Status: Chronic Category: Medical Code(s): I48.0 - Paroxysmal atrial fibrillation (5) CAD (coronary artery disease): Status: Chronic Qualifiers: Associated angina: without angina Coronary Disease-Associated Artery/Lesion type: [place] artery [place] vs. transplanted heart: [place] heart Qualified Code(s): I25.10 - Atherosclerotic heart disease of [place] coronary artery without angina pectoris Category: Medical Code(s): I25.10 - Atherosclerotic heart disease of [place] coronary artery without angina pectoris (6) HLD (hyperlipidemia): Status: Chronic Qualifiers: Hyperlipidemia type: mixed hyperlipidemia Qualified Code(s): E78.2 - Mixed hyperlipidemia Category: Medical Code(s): E78.5 - Hyperlipidemia, unspecified (7) HHD (hypertensive heart disease): Status: Chronic Qualifiers: Heart failure presence: without heart failure Qualified Code(s): I11.9 - Hypertensive heart disease without heart failure Category: Medical Code(s): I11.9 - Hypertensive heart disease without heart failure (8) Dementia: Status: Acute Category: Medical Code(s): F03.90 - Unspecified dementia, unspecified severity, without behavioral disturbance, ps
--- NOTE | 2022-03-20 10:08 | HMH.OTEV ---
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 These symptoms all started around 10 pm on 03/16/22 , when she was found in the floor at the care home that she currently resides. Her childcare center director had to basically pick her up out of the floor. She reported noticed the facial droop and weakness at that point. She was evaluated in the ER the next evening and was found to have an acute CVA with a right MCA occlusion. Stroke team was consulted at and they did not recommend transfer to due to almost 24 hours passing since symptoms began. Patient was given one dose of Lovenox and admitted for further evaluation and management. PMH: CAD (coronary artery disease) Chest pain, atypical Dementia Dizziness HHD (hypertensive heart disease) History of left heart catheterization HLD (hyperlipidemia) Meningioma, cerebral Osteomyelitis of the skull Palpitations Sinus bradycardia Sinus pause Snoring Subjective i can walk. Instructed Patient on proper hand/foot placement to complete sit->stand with usage of RW, amb
--- NOTE | 2022-03-20 15:41 | CARE MANAGER ---
Spoke with patient today regarding discharge plans. Patient plans for discharge back to her longterm and per PT cosme she is appropriate for this plan.
[2022-03-20 17:09] LABS: Microscopic, Urine URINE MICROSCOPIC (MICROSCOPIC)
[2022-03-20 18:35] LABS: Appearance,Urine CLEAR (Clear); Bilirubin,Urine Negative (Negative); Blood, Urine TRACE-I (Negative); Color,Urine YELLOW (Yellow); Glucose,Urine (UA) Negative (Negative); Ketones,Urine Negative (Negative); Leukocyte Esterase,Urine TRACE (Negative); Nitrate,Urine Negative (Negative); PH,Urine 5.5 (5.0-8.5); Protein,Urine Negative (Negative); Specific Gravity, Urine >= 1.030 (1.005-1.030); Urobilinogen,Urine 0.2 EU/dl (0.2)
[2022-03-20 18:46] LABS: Bacteria,Urine Trace /lpf; Squamous Epithelial Cell,Urine Occasional #/hpf (0-5); WBC,Urine Occasional #/hpf (0-3)
[2022-03-21] VITALS: PULSE 70
[2022-03-21 04:00] VITALS: BP 126/64; PULSE 64; PULSE 70; RESP 16; TEMP 36.6; O2SAT 98
[2022-03-21 05:00] VITALS: BMI 21.4
--- NOTE | 2022-03-21 05:18 | PC.NURSE ---
no changes since previous assessment. Remains on RA. PERRLA. Strength equal bilaterally. A-fib on telemetry. HR 64-70 this shift.
[2022-03-21 08:00] VITALS: BP 100/51; PULSE 79; RESP 17; TEMP 36.5; O2SAT 100
--- NOTE | 2022-03-21 08:27 | EXP.PN ---
Subjective *Date: 03/21/22 *Time: 08:41 Interval history: Patient is ready continue to be discharged she states. She denies chest pain and shortness of breath. She is moving all extremities. She is eating without problems. She states she just slept a couple hours last night. Exam Data for Last 24 hours Vital signs and Labs for Last 24 Hours: Temp Pulse Resp BP Pulse Ox 97.9 F 64 16 126/64 98 03/21/22 04:00 03/21/22 04:00 03/21/22 04:00 03/21/22 04:00 03/21/22 04:00 Laboratory Results - last 24 hr 03/20/22 15:03: Urine Color Yellow, Urine Appearance Clear, Urine pH 5.5, Ur Specific [place] >= 1.030, Urine Protein Negative, Urine Glucose (UA) Negative, Urine Ketones Negative, Urine Blood Trace-i, Urine Nitrate Negative, Urine Bilirubin Negative, Urine Urobilinogen 0.2, Ur Leukocyte Esterase Trace, Urine RBC None, Urine WBC Occasional, Ur Squamous Epith Cells Occasional, Urine Bacteria Trace I & O for Last 24 hours: Intake & Output 03/18/22 03/19/22 03/20/22 03/21/22 11:59 11:59 11:59 11:59 Intake Total 180 / 180 840 / 840 2350 / 2350 480 / 480 Output Total 200 / 200 250 / 250 600 / 600 600 / 600 Balance -20 / -20 590 / 590 1750 / 1750 -120 / -120 Weight 122 lb 2 oz 119 lb 0.794 oz 116 lb 7 oz 116 lb 6.994 oz Constitutional Constitutional: no acute distress Comments: Sitting up in bedside chair after eating breakfast. She states she feels well. *Routine Respiratory Exam Respiratory: Present CTA bilaterally (Anteriorly and posteriorly) *Routine Cardiovascular Exam Cardiovascular: Present RRR *Routine Abdominal Exam Abdominal: Present soft and normoactive bowel sounds; Absent tenderness or distended *Routine Extremities Exam Extremities: Present full ROM; Absent edema or calf tenderness *Routine Neurological Exam Neurological: Present alert, oriented X3 and moving all extremities; Absent normal speech Assessment and Plan *Assessment and plan (1) Acute right arterial ischemic stroke, MCA (middle cerebral artery): Status: Acute Category: Medical Code(s): I63.511 - Cerebral infarction due to unspecified occlusion or stenosis of right middle cerebral artery (2) Acute CVA (cerebrovascular accident): Status: Acute Category: Medical Code(s): I63.9 - Cerebral infarction, unspecified (3) Left hemiparesis: Status: Acute Category: Medical Code(s): G81.94 - Hemiplegia, unspecified affecting left nondominant side (4) PAF (paroxysmal atrial fibrillation): Status: Chronic Category: Medical Code(s): I48.0 - Paroxysmal atrial fibrillation (5) CAD (coronary artery disease): Status: Chronic Qualifiers: Associated angina: without angina Coronary Disease-Associated Artery/Lesion type: [place] artery [place] vs. transplanted heart: [place] heart Qualified Code(s): I25.10 - Atherosclerotic heart disease of [place] coronary artery without angina pectoris Category: Medical Code(s): I25.10 - Atherosclerotic heart disease of [place] coronary artery without angina pectoris (6) HLD (hyperlipidemia): Status: Chronic Qualifiers: Hyperlipidemia type: mixed hyperlipidemia Qualified Code(s): E78.2 - Mixed hyperlipidemia Category: Medical Code(s): E78.5 - Hyperlipidemia, unspecified (7) HHD (hypertensive heart disease): Status: Chronic Qualifiers: Heart failure presence: without heart failure Qualified Code(s): I11.9 - Hypertensive heart disease without heart failure Category: Medical Code(s): I11.9 - Hypertensive heart disease without heart failure (8) Dementia: Status: Acute Category: Medical Code(s): F03.90 - Unspecified dementia, unspecified severity, without behavioral disturbance, psychotic disturbance, mood disturbance, and anxiety (9) Dysuria: Status: Acute Category: Medical Code(s): R30.0 - Dysuria Plan
--- NOTE | 2022-03-22 09:07 | EXP.DC.SUM ---
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 fib who presented to [facility] ER last night with reports of left sided weakness, facial droop and inability to walk. These symptoms all started around 10 pm on 03/16/22 , when she was found in the floor at the senior living that she currently resides. Her pharmacy customer care specialist had to basically pick her up out of the floor. She reported noticed the facial droop and weakness at that point. She was evaluated in the ER the next evening and was found to have an acute CVA with a right MCA occlusion. Stroke team was consulted at and they did not recommend transfer to due to almost 24 hours passing since symptoms began. Patient was given one dose of Lovenox and admitted for further evaluation and management. Hospital Course Hospital Course Hospital Course: The patient's head CT showed acute occlusion of the right MCA, M2 and M3 branches. She was admitted due to acute right MCA stroke. Speech, occupational therapy, and physical therapy were all ordered. Her bedside nursing swallow assessment was normal. She was continued on Lipitor and Eliquis and was given Lovenox in the emergency room. She was started on 81 mg of aspirin daily. She did not remember her visits by PT and OT, but she was able to get out of bed in the chair. She made dramatic improvement in 48 hours and was able to move her left arm and hand with near full strength and was able to walk with minimal assistance. She was able to eat without problems. It was felt she could be discharged back to the senior living. She did have some complaints of dysuria, which resolved, and her urinalysis was negative. Exam Data for Last 24 hours Vital signs and Labs for Last 24 Hours: Temp Pulse Resp BP Pulse Ox 97.7 F 79 17 100/51 L 100 03/21/22 08:00 03/21/22 08:00 03/21/22 08:00 03/21/22 08:00 03/21/22 08:00 I & O for Last 24 hours: Intake & Output 03/19/22 03/20/22 03/21/22 03/22/22 11:59 11:59 11:59 11:59 Intake Total 840 / 840 2350 / 2350 660 / 660 Output Total 250 / 250 600 / 600 600 / 600 Balance 590 / 590 1750 / 1750 60 / 60 Weight 119 lb 0.794 oz 116 lb 7 oz 116 lb 6.994 oz Narrative: Constitutional Constitutional: no acute distress *Routine HEENT Exam Head: Present normocephalic Eye: Present EOMI and PERRL ENT: Present mucous membranes moist *Routine Neck Exam Neck: Present supple; Absent lymphadenopathy *Routine Respiratory Exam Respiratory: Present CTA bilaterally *Routine Cardiovascular Exam Cardiovascular: Present RRR *Routine Abdominal Exam Abdominal: Present soft and normoactive bowel sounds; Absent tenderness *Routine Rectal Exam Rectal:: deferred *Routine Genitalia Exam Genitalia:: deferred *Routine Extremities Exam Extremities: Absent cyanosis, clubbing or edema *Routine Skin Exam Skin: Present warm; Absent rash *Routine Neurological Exam Neurological: Present alert, motor deficit (left upper and lower extremity), hemineglect and facial asymmetry; Absent moving all extremities DS: Diagnosis Discharge Diagnosis (1) Acute right arterial ischemic stroke, MCA (middle cerebral artery): Status: Acute (2) Acute CVA (cerebrovascular accident): Status: Acute (3) Left hemiparesis: Status: Acute (4) PAF (paroxysmal atrial fibrillation): Status: Chronic (5) CAD (coronary artery disease): Status: Chronic (6) HLD (hyperlipidemia): Status: Chronic (7) HHD (hypertensive heart disease): Status: Chronic (8) Dementia: Status: Acute (9) Dysuria: Status: Acute Meds Home Medications and Allergies Home Medications Medication Instructions Recorded Confirmed Type atorvastatin 40 mg tablet 40 mg PO DAILY Cholesterol 09/01/19 03/18/22 History multivitamin 1 tab PO DAILY Supplement 07/30/20 03/18/22 History carboxymethylcellulose 1 1 drp ophthalmic
--- NOTE | 2022-03-22 11:12 | CARE MANAGER ---
Spoke with patient related to hospital discharge. She is doing well and is aware she is to take ASA. She is also aware of follow up appointment with Dr. Blanco. Denies any questions or concerns. MINH Manning
== END 2022-03-21 11:00 | disposition home or self-care (01) | DRG 65 ==
LOC: ER 20:41 → 2ND 21:38
PROVIDERS: Emergency Medicine; Nurse Practitioner Family; Admitting Provider Internal Medicine Adolescent Medicine; Emergency Provider Emergency Medicine; PCP Family Medicine; Visit Provider Family Medicine
DX: I63.511 Cerebral infarction due to unspecified occlusion or stenosis of right middle cerebral artery (principal); G81.94 Hemiplegia, unspecified affecting left nondominant side; I48.0 Paroxysmal atrial fibrillation; I25.10 Atherosclerotic heart disease of native coronary artery without angina pectoris; R29.703 NIHSS score 3; F03.90 Unspecified dementia, unspecified severity, without behavioral disturbance, psychotic disturbance, mood disturbance, and anxiety; I10 Essential (primary) hypertension; E78.2 Mixed hyperlipidemia
CPT/HCPCS: 36415; 70450; 70496; 70498; 71045; 80048; 80162; 81001; 82962; 83735; 84484; 85025; 92610; 93005; 97116; 97162; 97165; 97530; 99285; C9803; Q9967; U0003; U0005

== ENCOUNTER 2022-03-24 13:16 | Emergency (ER) | payer MEDICARE, OTHER, SELFPAY ==
[2022-03-24 13:18] VITALS: BP 160/87; PULSE 68; RESP 17; TEMP 36.7; O2SAT 98; BMI 22.3
--- NOTE | 2022-03-24 13:27 | ECG_ITS ---
APPROVED REPORT Exam: Resting ECG HR:72 bpm ECG Measurements Heart Rate 72 AXES QRSd 83 QRS 67 QT 374 T -12 QTc 399 Conclusion ATRIAL FIBRILLATION NONSPECIFIC ST & T-WAVE ABNORMALITY ABNORMAL ECG UNCONFIRMED REPORT Electronically signed by : Wilner Hussein MD 03/24/2022 16:40:16
[2022-03-24 13:30] LABS: POC Glucose,Bedside 122 (70-110)
--- NOTE | 2022-03-24 13:58 | PC.NURSE ---
ED MD AT BEDSIDE FOR EVALUATION
[2022-03-24 14:00] VITALS: BP 149/81; PULSE 78; O2SAT 99
--- NOTE | 2022-03-24 14:01 | CT_ITS ---
FINAL REPORT CLINICAL HISTORY: previous stroke, R sided pressure. normal exam. prior hx brain tumor removed in 2014 COMPARISON: 03/17/2022 FINDINGS: Axial images of the head were obtained without contrast. Coronal reformatted images were also obtained. This study was performed with techniques to keep radiation doses as low as reasonably achievable (ALARA). Individualized dose reduction techniques using automated exposure control or adjustment of mA and/or kV according to the patient''s size were employed. There is generalized age-appropriate atrophy. Periventricular low-attenuation areas are seen consistent with mild chronic ischemic changes. There are postoperative changes from right sided craniectomy. There is right frontal encephalomalacia, stable. There is no evidence of intracranial hemorrhage or mass. There is no evidence of acute infarct. There is no evidence of shift of the midline structures. No skull abnormality is seen on the bone window images. There is probable nasal polyposis. Fluid or debris is again seen in the left maxillary sinus consistent with sinusitis. There are postoperative changes in the right infratemporal fossa. IMPRESSION: Atrophy and mild periventricular chronic ischemic changes. No definite acute intracranial abnormality. Findings are stable from previous. Reviewed, Interpreted and Dictated by Angelito Tabares III, MD Transcribed by Noemy Regalado Authenticated and . [facility]
--- NOTE | 2022-03-24 14:03 | HMH.EDGENADL ---
Discharge Plan Disposition Patient Disposition: Home, Self-Care Condition: Good Chief Complaint: Weakness Prescriptions Prescriptions: No Action multivitamin Tablet 1 tab PO DAILY Refresh Optive 1-0.9 % drops,gel 1 drp OPHTHALMIC HS erythromycin 5 mg/gram (0.5 %) ointment 1 applic OP DAILY atorvastatin 40 MG tablet 40 mg PO DAILY digoxin 125 mcg (0.125 mg) tablet 125 mcg PO DAILY metoprolol succinate 25 mg tablet extended release 24 hr 25 mg PO BID memantine 10 mg tablet 10 mg PO BID Eliquis 2.5 mg tablet 2.5 mg PO BID aspirin 81 mg Tablet,Delayed Release (Dr/Ec) 81 mg PO DAILY Qty: 30 11RF Referrals Follow up/Referrals: Israel Blanco MD [Primary Care Provider] - See instructions Activity Restrictions/Add. Instructions Additional Instructions/Restrictions: At this time was felt you are safe to be discharged home. If new or worsening symptoms please do not hesitate to return for continued evaluation. Clinical Impressions Clinical Impression: Pressure in head Discharge ED Provider: Apolinar Sierra General Adult HPI General Chief complaint: Weakness Stated complaint: pressure on head, lightheaded Time Seen by Provider: 03/24/22 14:00 History of Present Illness HPI narrative: Patient is a 81-year-old female with atrial fibrillation on Eliquis, recent acute right MCA stroke discharged from this hospital who presents emergency department for evaluation of superior calvarial pressure. Patient has dizziness ever since she had a tumor removed in 2014 which is at baseline. Symptom and pressure is intermittent however worse than baseline causing them to present here for continued evaluation. Per hospital chart review she had an acute occlusion of right MCA M2/M3 branches and was evaluated by PT OT after neurology declined acute intervention. Patient had no residual deficits and was discharged home in stable condition. She is accompanied by her seafood technology specialist today. Other than superior calvarial pressure there is no other acute complaints and denies acute unilateral weakness, speech changes, facial droop. Related Data Home Medications Medication Instructions Recorded Confirmed atorvastatin 40 mg tablet 40 mg PO DAILY Cholesterol 09/01/19 03/18/22 multivitamin 1 tab PO DAILY Supplement 07/30/20 03/18/22 carboxymethylcellulose 1 1 drp ophthalmic (eye) HS DRY EYES 05/03/21 03/18/22 %-glycerin 0.9 % eye gel drops (Refresh Optive) erythromycin 5 mg/gram (0.5 %) eye 1 applic ophthalmic (eye) DAILY 11/21/21 03/18/22 ointment Infection apixaban 2.5 mg tablet (Eliquis) 2.5 mg PO BID A FIB 03/17/22 03/18/22 digoxin 125 mcg (0.125 mg) tablet 125 mcg PO DAILY Heart rhythm 03/17/22 03/18/22 memantine 10 mg tablet 10 mg PO BID MEMORY 03/17/22 03/18/22 metoprolol succinate 25 mg 25 mg PO BID Hypertension 03/17/22 03/18/22 tablet,extended release 24 hr Previous Rx's Medication Instructions Recorded aspirin 81 mg tablet,delayed 81 mg PO DAILY #30 tabs 03/21/22 release Allergies Allergy/AdvReac Type Severity Reaction Status Date / Time ertapenem [From [facility]] Allergy Severe SEIZURE Verified 11/21/21 14:20 dexamethasone Allergy Intermediate I-HIVES Verified 11/21/21 14:20 donepezil AdvReac Intermediate nausea, Verified 11/21/21 15:41 vomiting, lethargy, confusion Sulfa (Sulfonamide AdvReac Mild VOMITING Verified 11/21/21 14:20 Antibiotics) rivastigmine AdvReac nausea/vomi Verified 11/21/21 14:20 ting PFSH PFS Disclaimer: The information contained in this section may have been updated after the patient was seen, as this information can be updated by other users. Medical History (Updated 03/24/22 @ 16:15 by Apolinar Sierra MD) CAD (coronary artery disease) Chest pain, atypical Dementia Dizziness HHD (hypertensive heart disease) History of left heart catheterization HLD (hyperlipidemia) Meningioma, cerebral
[2022-03-24 14:18] LABS: Chloride 103 mmol/L (98-107); Potassium 4.3 mmoL/L (3.5-5.1); Sodium 141 mmol/L (136-145)
[2022-03-24 14:21] LABS: Anion Gap 13.3 mEq/L (5-15); Basophils # 0.1 K/mm3 (0-0.2); Basophils % 0.6 % (0.1-2.0); Blood Urea Nitrogen 17 mg/dl (7-17); Calcium 10.2 mg/dl (8.4-10.2); Carbon Dioxide 29 mmol/L (22.0-30.0); Creatinine Clearance Estimated 40 mL/min (50-200); Eosinophils # 0.1 K/mm3 (0.0-0.4); Eosinophils % 0.8 % (0.1-12.0); Estimated Glomerular Filt Rate 81 ml/min (>60); GFR (African American) 98 ML/MIN (>60); Glucose 136 mg/dl (74-100); Hematocrit 47.5 % (37.0-47.0); Hemoglobin 15.7 g/dL (12.2-16.2); Lymphocytes # 1.9 K/mm3 (0.7-4.5); Lymphocytes % 16.4 % (10-50); Mean Corpuscular HGB Conc 33.1 g/dL (31.8-35.4); Mean Corpuscular Hemoglobin 32.3 pg (27.0-31.2); Mean Corpuscular Volume 97.4 fl (81-99); Mean Platelet Volume 11.1 fl (7.4-10.4); Monocytes # 0.5 K/mm3 (0.1-1.0); Monocytes % 4.1 % (1.7-9.3); Neutrophils # 9.1 K/mm3 (1.8-7.8); Neutrophils % 78.1 % (37.0-80.0); Platelet Count 185 K/mm3 (142-424); Red Blood Count 4.87 M/mm3 (4.20-5.40); Red Cell Distribution Width 12.9 % (11.5-17.5); White Blood Count 11.6 K/mm3 (4.8-10.8)
[2022-03-24 14:30] VITALS: BP 113/65; PULSE 73; O2SAT 98
--- NOTE | 2022-03-24 14:57 | PC.NURSE ---
PT TO CT AT THIS TIME
[2022-03-24 15:30] VITALS: BP 129/72; PULSE 69; O2SAT 100
--- NOTE | 2022-03-24 15:55 | PC.NURSE ---
PT AMBULATED TO BR AT THIS TIME
[2022-03-24 16:00] VITALS: BP 151/76; PULSE 72; O2SAT 98
--- NOTE | 2022-03-24 16:08 | PC.NURSE ---
Checked on patient, family at BS. Reports no needs, aware that we have been waiting on radiology reports and the ER DR should be back in shortly
[2022-03-24 16:50] VITALS: BP 151/76; PULSE 72; RESP 18; TEMP 36.7; O2SAT 98
== END 2022-03-24 16:50 | disposition home or self-care (01) ==
PROVIDERS: Emergency Provider Emergency Medicine; PCP Family Medicine
DX: R51.9 Headache, unspecified (principal); Z79.01 Long term (current) use of anticoagulants; I48.91 Unspecified atrial fibrillation; Z79.899 Other long term (current) drug therapy; I10 Essential (primary) hypertension; I25.10 Atherosclerotic heart disease of native coronary artery without angina pectoris; M86.8X8 Other osteomyelitis, other site
CPT/HCPCS: 70450; 80048; 82962; 85025; 93005; 99284

== ENCOUNTER 2022-04-03 17:51 | Emergency (ER) | payer MEDICARE, OTHER, SELFPAY ==
--- NOTE | 2022-04-03 17:51 | ECG_ITS ---
APPROVED REPORT Exam: Resting ECG HR:71 bpm ECG Measurements Heart Rate 71 AXES QRSd 85 QRS 74 QT 339 T 67 QTc 362 Conclusion ATRIAL FIBRILLATION NONSPECIFIC ST & T-WAVE ABNORMALITY ABNORMAL RHYTHM ECG UNCONFIRMED REPORT Electronically signed by : Wilner Hussein MD 04/04/2022 22:19:39
[2022-04-03 17:54] VITALS: BP 152/100; PULSE 84; RESP 18; TEMP 37.1; O2SAT 100; BMI 22.3
--- NOTE | 2022-04-03 17:56 | XR_ITS ---
PROCEDURE INFORMATION: Exam: XR Chest Exam date and time: 04/03/2022 6:13 PM Age: 81 years old Clinical indication: Pain; Chest pressure; Additional info: Chest pain TECHNIQUE: Imaging protocol: Radiologic exam of the chest. Views: 1 view. COMPARISON: CR XR CHEST PORTABLE 03/17/2022 7:54 PM FINDINGS: Lungs: No evidence of pneumonia or interstitial edema. Pleural spaces: Unremarkable. No pleural effusion. No pneumothorax. Heart/Mediastinum: Unremarkable. No cardiomegaly. Bones/joints: Unremarkable. IMPRESSION: No evidence of pneumonia or interstitial edema.
[2022-04-03 18:20] LABS: Chloride 104 mmol/L (98-107); Sodium 141 mmol/L (136-145)
[2022-04-03 18:23] LABS: Blood Urea Nitrogen 21 mg/dl (7-17); Carbon Dioxide 28 mmol/L (22.0-30.0); Estimated Glomerular Filt Rate 53 ml/min (>60); GFR (African American) 65 ML/MIN (>60); Glucose 98 mg/dl (74-100)
[2022-04-03 18:31] LABS: Basophils # 0.1 K/mm3 (0-0.2); Basophils % 1.3 % (0.1-2.0); Eosinophils # 0.1 K/mm3 (0.0-0.4); Eosinophils % 0.8 % (0.1-12.0); Hematocrit 45.8 % (37.0-47.0); Hemoglobin 15.5 g/dL (12.2-16.2); Lymphocytes # 2.5 K/mm3 (0.7-4.5); Lymphocytes % 32.2 % (10-50); Mean Corpuscular HGB Conc 33.8 g/dL (31.8-35.4); Mean Corpuscular Hemoglobin 32.1 pg (27.0-31.2); Mean Corpuscular Volume 94.8 fl (81-99); Mean Platelet Volume 11.1 fl (7.4-10.4); Monocytes # 0.4 K/mm3 (0.1-1.0); Monocytes % 5.3 % (1.7-9.3); Neutrophils # 4.8 K/mm3 (1.8-7.8); Neutrophils % 60.4 % (37.0-80.0); Platelet Count 186 K/mm3 (142-424); Red Blood Count 4.83 M/mm3 (4.20-5.40); Red Cell Distribution Width 12.7 % (11.5-17.5); White Blood Count 7.9 K/mm3 (4.8-10.8)
[2022-04-03 18:36] LABS: Troponin I < 0.01 ng/ml (0.00-0.034)
--- NOTE | 2022-04-03 20:08 | HMH.EDGENADL ---
Discharge Plan Disposition Patient Disposition: Home, Self-Care Condition: Good Chief Complaint: Chest Pain Prescriptions Prescriptions: No Action multivitamin Tablet 1 tab PO DAILY Refresh Optive 1-0.9 % drops,gel 1 drp OPHTHALMIC HS erythromycin 5 mg/gram (0.5 %) ointment 1 applic OP DAILY digoxin 125 mcg (0.125 mg) tablet See Rx Instructions .ROUTE .COMPLEX Qty: 30 4RF Dose Instruction: TAKE 1 TABLET BY MOUTH ONCE DAILY Rx Instructions: TAKE 1 TABLET BY MOUTH ONCE DAILY atorvastatin 40 MG tablet 40 mg PO DAILY metoprolol succinate 25 mg tablet extended release 24 hr 25 mg PO BID memantine 10 mg tablet 10 mg PO BID Eliquis 2.5 mg tablet 2.5 mg PO BID aspirin 81 mg Tablet,Delayed Release (Dr/Ec) 81 mg PO DAILY Qty: 30 11RF Referrals Follow up/Referrals: Israel Blanco MD [Primary Care Provider] - See instructions Clinical Impressions Clinical Impression: Chest pain Instructions Patient Instructions: DI for Atypical Chest Pain Discharge ED Provider: Robbi Fuentes General Adult HPI <Robbi Fuentes MD - Last Filed: 04/03/22 20:49> General Chief complaint: Chest Pain Stated complaint: CP Time Seen by Provider: 04/03/22 18:00 Mode of Arrival: Ambulatory Source of Information: Patient Limitations: No Limitations Description of Symptoms (Recalled from ER Triage Doc. by RN): cp midsternal started around non no SOA. the pt states there is a sharp pain that ran down under l breast. no pain at this time History of Present Illness HPI narrative: This is a 81-year-old female with history of hyperlipidemia, hypertension, CAD, paroxysmal A. fib on Eliquis who is presenting with chest pain. Patient states that approximately 5 hours prior to arrival she was eating lunch when she had an acute onset chest pain. It was left, parasternal, did not radiate, 5 out of 10 and felt like a pressure or burning. She has had multiple episodes of this since that time that have waxed and waned without intervention. Not currently having symptoms. Denies nausea, vomiting, exertional dyspnea, dyspnea in general, diaphoresis, neurologic deficits, or any other concerning symptoms. Related Data Home Medications Medication Instructions Recorded Confirmed atorvastatin 40 mg tablet 40 mg PO DAILY Cholesterol 09/01/19 03/18/22 multivitamin 1 tab PO DAILY Supplement 07/30/20 03/18/22 carboxymethylcellulose 1 1 drp ophthalmic (eye) HS DRY EYES 05/03/21 03/18/22 %-glycerin 0.9 % eye gel drops (Refresh Optive) erythromycin 5 mg/gram (0.5 %) eye 1 applic ophthalmic (eye) DAILY 11/21/21 03/18/22 ointment Infection apixaban 2.5 mg tablet (Eliquis) 2.5 mg PO BID A FIB 03/17/22 03/18/22 memantine 10 mg tablet 10 mg PO BID MEMORY 03/17/22 03/18/22 metoprolol succinate 25 mg 25 mg PO BID Hypertension 03/17/22 03/18/22 tablet,extended release 24 hr Previous Rx's Medication Instructions Recorded aspirin 81 mg tablet,delayed 81 mg PO DAILY #30 tabs 03/21/22 release digoxin 125 mcg (0.125 mg) tablet See Rx Instructions .Route 04/03/22 .COMPLEX #30 tabs Allergies Allergy/AdvReac Type Severity Reaction Status Date / Time ertapenem [From [facility]] Allergy Severe SEIZURE Verified 11/21/21 14:20 dexamethasone Allergy Intermediate I-HIVES Verified 11/21/21 14:20 donepezil AdvReac Intermediate nausea, Verified 11/21/21 15:41 vomiting, lethargy, confusion Sulfa (Sulfonamide AdvReac Mild VOMITING Verified 11/21/21 14:20 Antibiotics) rivastigmine AdvReac nausea/vomi Verified 11/21/21 14:20 ting [facility] <Robbi Fuentes MD - Last Filed: 04/03/22 20:49> [facility] Disclaimer: The information contained in this section may have been updated after the patient was seen, as this information can be updated by other users. Medical History (Updated 04/03/22 @ 21:28 by Dillan Yeung MD) CAD (coronary artery disease) Chest pain, atypical [facility]
--- NOTE | 2022-04-03 20:30 | PC.NURSE ---
Pt and son were updated at this time on POC and need for 2nd trop draw. Pt verbalizes understanding
[2022-04-03 21:21] LABS: Troponin I < 0.01 ng/ml (0.00-0.034)
[2022-04-03 21:50] VITALS: BP 134/78; PULSE 80; RESP 18; TEMP 37.1; O2SAT 100
== END 2022-04-03 21:52 | disposition home or self-care (01) ==
PROVIDERS: Emergency Provider Emergency Medicine; PCP Family Medicine
DX: R07.2 Precordial pain (principal); R00.1 Bradycardia, unspecified; I11.9 Hypertensive heart disease without heart failure; I48.91 Unspecified atrial fibrillation; I25.10 Atherosclerotic heart disease of native coronary artery without angina pectoris; E78.5 Hyperlipidemia, unspecified; F03.90 Unspecified dementia, unspecified severity, without behavioral disturbance, psychotic disturbance, mood disturbance, and anxiety; Z79.01 Long term (current) use of anticoagulants; Z79.82 Long term (current) use of aspirin; Z88.1 Allergy status to other antibiotic agents; Z88.2 Allergy status to sulfonamides; Z86.011 Personal history of benign neoplasm of the brain
CPT/HCPCS: 71045; 80048; 84484; 85025; 93005; 99284

== ENCOUNTER → 2022-05-16 08:58 | Outpatient (CLI) | payer MEDICARE, OTHER, SELFPAY ==
--- NOTE | 2022-05-16 09:09 | MR_ITS ---
FINAL REPORT CLINICAL HISTORY: Status post right MCA occlusion hx benign brain tumor 10 years ago with craniotomy 11ml prohance FINDINGS: Multiplanar MR imaging of the brain was performed without and with contrast. There is mild age-appropriate atrophy. Scattered foci of increased T2 signal are seen in the cerebral white matter that have a nonspecific appearance but likely represent mild chronic ischemic/gliotic changes. There is right hemisphere encephalomalacia and postoperative changes from craniectomy. There is no evidence of intracranial hemorrhage or mass. No abnormal ventricular dilatation is identified. There is no evidence of shift of the midline structures. No abnormal extra-axial fluid collection is seen. No area of abnormal restricted diffusion is identified. No abnormal contrast enhancement is seen. Normal major vessel vascular flow voids are seen. There is opacification of the left frontal sinus. There is presumed nasal polyposis. IMPRESSION: Mild atrophy and chronic ischemic/gliotic changes. Postoperative changes as detailed above. No acute intracranial abnormality. Reviewed, Interpreted and Dictated by Angelito Tabares III, MD Transcribed by Noemy Regalado Authenticated and . [facility]
[2022-05-16 09:30] LABS: Blood Urea Nitrogen 18 mg/dl (7-17); Chol/HDL Ratio 3.8 (1-3.5); Cholesterol 170 mg/dl (140-200); Estimated Glomerular Filt Rate 60 ml/min (>60); GFR (African American) 73 ML/MIN (>60); HDL Cholesterol 45 mg/dl (40-60); Triglycerides 103 mg/dl (30-150); VLDL Cholesterol 21 mg/dL (0-40)
[2022-05-16 09:41] LABS: Direct LDL Cholesterol 86.73 mg/dL (100-129)
== END ==
PROVIDERS: PCP Family Medicine; Visit Provider Nurse Practitioner Family
DX: I63.511 Cerebral infarction due to unspecified occlusion or stenosis of right middle cerebral artery; I48.0 Paroxysmal atrial fibrillation; I63.9 Cerebral infarction, unspecified; R44.1 Visual hallucinations; Z86.011 Personal history of benign neoplasm of the brain; Z98.890 Other specified postprocedural states
CPT/HCPCS: 36415; 70553; 80061; 82565; 84520; A9576

== ENCOUNTER → 2022-06-01 13:59 | Outpatient (CLI) | payer MEDICARE, OTHER, SELFPAY ==
--- NOTE | 2022-06-01 14:03 | US_ITS ---
FINAL REPORT TECHNIQUE: Sonographic images of the thyroid gland were obtained in the longitudinal and transverse planes. CLINICAL HISTORY: THYROID NODULE FINDINGS: The right lobe measures 4.6 x 2.1 x 1.7 cm. The right lobe is homogeneous. There are several nodules and cysts. There is a hypoechoic nodule is ring 1.2 cm in the upper pole, TI-RADS 4. There is a mixed cystic and solid nodule in the lower pole measuring 1.3 cm. The left lobe measures 4.2 x 1.9 x 1.8 cm. The left lobe is homogeneous. There are multiple nodules and cysts. There is a solid hypoechoic nodule in the upper pole measures 1 cm. A mixed cystic and solid nodule in the lower pole measures 1.7 cm. The isthmus measures 6 mm. There is a 3 mm cyst in the isthmus. IMPRESSION: 1. Multiple bilateral nodules and cysts. 2. TIRADS category 4 nodule in the right lobe. Recommend follow-up. 3. TI-RADS 3 nodules in the left lobe can be followed at that time. 4. Other nodules are either benign or too small for follow-up. Reviewed, Interpreted and Dictated by Angélica Nava MD Transcribed by Emelyn Prater Authenticated and . [facility]
== END ==
PROVIDERS: PCP Family Medicine; Visit Provider Family Medicine
DX: E04.1 Nontoxic single thyroid nodule (principal)
CPT/HCPCS: 76536

== ENCOUNTER → 2022-07-14 12:47 | Outpatient (CLI) | payer MEDICARE, OTHER, SELFPAY ==
--- NOTE | 2022-07-14 12:50 | CT_ITS ---
FINAL REPORT TECHNIQUE: Thin section axial images were obtained from the thoracic inlet through the upper abdomen after intravenous contrast injection. Reconstruction images were obtained from the axial data. Exam was performed using dose reduction technique. CLINICAL HISTORY: LUNG NODULE, semi-solid 5 mm nodule left upper lobe COMPARISON: CTA neck 03/18/2022 FINDINGS: There are bilateral hypodense thyroid nodules. There is no mediastinal, hilar, or axillary lymphadenopathy. There is no pleural or pericardial effusion. The lungs are clear. The previously identified left upper lobe nodule is no longer present. Limited evaluation of the upper abdomen is without acute abnormality. No acute osseous abnormality. IMPRESSION: No acute intrathoracic abnormality. Resolved mixed density left upper lobe nodule. Bilateral hypodense thyroid nodules. Reviewed, Interpreted and Dictated by Angélica Nava MD Transcribed by Sharri Rm Authenticated and [facility]
== END ==
PROVIDERS: PCP Family Medicine; Visit Provider Family Medicine
DX: R91.1 Solitary pulmonary nodule (principal)
CPT/HCPCS: 71260; Q9967

== ENCOUNTER → 2022-08-10 14:14 | Outpatient (CLI) | payer MEDICARE, OTHER, SELFPAY | PROVIDERS: PCP Family Medicine; Visit Provider Family Medicine | DX: L60.1 Onycholysis (principal) | CPT/HCPCS: 87102; 87206; 87220 ==

== ENCOUNTER 2023-11-19 14:00 | Observation (INO) | payer MEDICARE, OTHER, SELFPAY ==
[2023-11-19] VITALS (13 sets, daily range): BP systolic 132–174; BP diastolic 64–111; PULSE 61–82; RESP 16–20; TEMP 36.8–37.1; O2SAT 93–99; BMI 22.1; BMI 22.3
--- NOTE | 2023-11-19 14:19 | PC.NURSE ---
pt placed into room 9 at this time
--- NOTE | 2023-11-19 14:28 | ECG_ITS ---
APPROVED REPORT Exam: Resting ECG HR:63 bpm ECG Measurements Heart Rate 63 AXES QRSd 83 QRS 48 QT 360 T 24 QTc 367 Conclusion ATRIAL FIBRILLATION NONSPECIFIC ST & T-WAVE ABNORMALITY ABNORMAL RHYTHM ECG Electronically signed by : EDE VIRAMONTES, 11/19/2023 17:01:27
--- NOTE | 2023-11-19 14:34 | ED_ITS ---
<Statement entered by Praveen Cee MD - 11/21/23 22:45> I was consulted by the BHANU, and we discussed the complexity of the problems being addressed. I approved the treatment and management plan for this patient's care in the emergency department, thus performing a substantive portion of the medical decision making. Praveen Cee MD, RADHA, FACEP Discharge Plan Disposition Patient Disposition: Admitted Condition: Fair Clinical Impressions Clinical Impression: Asthenia Discharge ED Provider: Adriana Ferro General Adult HPI General Chief complaint: Weakness Stated complaint: leg tremors, weakness Time Seen by Provider: 11/19/23 14:34 Mode of Arrival: Wheelchair Source of Information: Patient Limitations: No Limitations Description of Symptoms (Recalled from ER Triage Doc. by RN): Reports increased weakness and legs jerking. States this started yesterday. History of Present Illness HPI narrative: Patient presents for evaluation of acute STEMI a. Patient last known well yesterday. Normally at baseline patient is ambulatory and independent of activities of daily living. Over the last 24 hours patient has progressed to walking independently to not being able to stand at all. Patient reports muscle twitching in her bilateral lower extremities and being weak. Patient was unable to ambulate even with a walker. She denies chest pain shortness of breath fever chills hemoptysis hematochezia melena nausea vomiting diarrhea. She denies any change in sensorium. Related Data Home Medications ?Medication ?Instructions ?Recorded ?Confirmed atorvastatin 40 mg tablet 40 mg PO DAILY Cholesterol 09/01/19 08/07/23 multivitamin 1 tab PO DAILY Supplement 07/30/20 08/07/23 apixaban 2.5 mg tablet (Eliquis) 2.5 mg PO BID A FIB 03/17/22 08/07/23 quetiapine 25 mg tablet (Seroquel) 25 mg PO DIRECTED 10/05/22 08/07/23 methylcellulose (laxative) 500 mg 500 mg PO BID 01/16/23 08/07/23 tablet (Citrucel) mirtazapine 7.5 mg tablet 7.5 mg PO HS 01/16/23 08/07/23 Previous Rx's ?Medication ?Instructions ?Recorded aspirin 81 mg tablet,delayed 81 mg PO DAILY #30 tabs 03/21/22 release digoxin 125 mcg (0.125 mg) tablet See Rx Instructions .Route 06/06/23 .COMPLEX #90 tabs metoprolol succinate 25 mg 25 mg PO BID Hypertension #180 tabs 06/06/23 tablet,extended release 24 hr donepezil 5 mg tablet 5 mg PO BID Memory loss #180 tabs 08/07/23 memantine 10 mg tablet 10 mg PO BID MEMORY #180 tabs 08/07/23 Allergies Allergy/AdvReac Type Severity Reaction Status Date / Time ertapenem [From INVANZ] Allergy Severe SEIZURE Verified 05/22/23 10:10 dexamethasone Allergy Intermediate I-HIVES Verified 05/22/23 10:10 diphenhydramine Allergy Verified 11/19/23 14:34 [From Benadryl] Sulfa (Sulfonamide AdvReac Mild VOMITING Verified 05/22/23 10:10 Antibiotics) rivastigmine AdvReac nausea/vomi Verified 05/22/23 10:10 ting [facility] Disclaimer: The information contained in this section may have been updated after the patient was seen, as this information can be updated by other users. 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 Sinus pause Sinus bradycardia HLD (hyperlipidemia) HHD (hypertensive heart disease) CAD (coronary artery disease) Snoring Palpitations Chest pain, atypical Surgical History Hx of cataract surgery History of resection of meningioma History of colonoscopy History of breast biopsy History of craniotomy Family History Other No significant family history Social History Smoking Status: Never smoker second hand exposure: No alcohol intake: never substance use type: denies use current occupational status: retired Travel in the last 8 weeks: None household members: none housing: assisted living facility current occupational exposures/hazards: No caffeine: Yes ROS Obtained: Yes Systems reviewed as appropriate & no additional complaints except as documented Physical Exam General General appearance: alert and in no apparent distress Head Head exam: atraumatic and normal inspection Eye Eye exam: Present normal appearance, PERRL and EOMI; Absent nystagmus ENT ENT exam: Present normal exam, normal oropharynx and mucous membranes moist Neck Neck exam: Present normal inspection and full ROM Chest Chest inspection: Present normal inspection and symmetric chest wall rise Respiratory Respiratory exam: Present normal lung sounds bilaterally; Absent respiratory distress Cardiovascular Cardiovascular exam: Present regular rate, normal rhythm and normal heart sounds Abdominal Exam Abdominal exam: Present soft and normal bowel sounds; Absent tenderness Extremities Exam Extremities exam: Present normal inspection, full ROM (Passively) and other (Patient has muscle strength 3 out of 5 in all 4 extremities) Back Exam Back exam: Present normal inspection and full ROM; Absent tenderness Neurological Exam Neurological exam: Present alert, oriented X3, CN II-XII intact and reflexes normal; Absent normal gait (Patient unable to stand even with assistance) or motor sensory deficit Psychiatric Psychiatric exam: Present normal affect and normal mood Skin Skin exam: Present warm, dry and normal color Medical Decision Making Medical Records Medical records reviewed: Yes I reviewed the patient's medical records. Ollie Inquiry Pt receiving controlled substance: No Vital Signs: 11/19/23 14:02 11/19/23 15:00 11/19/23 15:15 Temperature 98.5 F Temperature Source Oral Pulse Rate 62 62 Pulse Rate [Orthostatic Lying] Pulse Rate [Orthostatic Sitting] Pulse Rate [Orthostatic Standing] Pulse Rate [Radial] 66 Respiratory Rate 16 18 Blood Pressure 132/64 132/64 Blood Pressure [Orthostatic Lying] Blood Pressure [Orthostatic Sitting] Blood Pressure [Orthostatic Standing] Blood Pressure [Right Arm] 150/81 H Blood Pressure Mean Blood Pressure Mean [Right Arm] 104 Blood Pressure Source Blood Pressure Source [Right Arm] Automatic Cuff Blood Pressure Position Blood Pressure Position [Right Arm] Sitting 02 Sat by Pulse Oximetry 95 97 99 Oxygen Delivery Method Room Air Room Air 11/19/23 15:32 11/19/23 16:00 11/19/23 16:30 Temperature Temperature Source Pulse Rate 72 68 70 Pulse Rate [Orthostatic Lying] Pulse Rate [Orthostatic Sitting] Pulse Rate [Orthostatic Standing] Pulse Rate [Radial] Respiratory Rate 18 Blood Pressure 174/80 H 135/87 159/80 H Blood Pressure [Orthostatic Lying] Blood Pressure [Orthostatic Sitting] Blood Pressure [Orthostatic Standing] Blood Pressure [Right Arm] Blood Pressure Mean 98 97 Blood Pressure Mean [Right Arm] Blood Pressure Source Blood Pressure Source [Right Arm] Blood Pressure Position Blood Pressure Position [Right Arm] 02 Sat by Pulse Oximetry 98 93 L 99 Oxygen Delivery Method Room Air Room Air 11/19/23 16:35 11/19/23 16:41 11/19/23 16:44 Temperature Temperature Source Pulse Rate 68 82 Pulse Rate [Orthostatic Lying] 68 Pulse Rate [Orthostatic Sitting] 78 Pulse Rate [Orthostatic Standing] 70 Pulse Rate [Radial] Respiratory Rate 16 18 Blood Pressure 135/68 170/92 H Blood Pressure [Orthostatic Lying] 135/68 Blood Pressure [Orthostatic Sitting] 170/92 H Blood Pressure [Orthostatic Standing] 149/111 H Blood Pressure [Right Arm] Blood Pressure Mean Blood Pressure Mean [Right Arm] Blood Pressure Source Blood Pressure Source [Right Arm] Blood Pressure Position Blood Pressure Position [Right Arm] 02 Sat by Pulse Oximetry 94 L 94 L Oxygen Delivery Method Room Air Room Air 11/19/23 17:00 11/19/23 17:30 11/19/23 20:53 Temperature 98.7 F Temperature Source Oral Pulse Rate 74 61 70 Pulse Rate [Orthostatic Lying] Pulse Rate [Orthostatic Sitting] Pulse Rate [Orthostatic Standing] Pulse Rate [Radial] Respiratory Rate 20 16 18 Blood Pressure 149/76 H 144/81 H 141/75 H Blood Pressure [Orthostatic Lying] Blood Pressure [Orthostatic Sitting] Blood Pressure [Orthostatic Standing] Blood Pressure [Right Arm] Blood Pressure Mean Blood Pressure Mean [Right Arm] Blood Pressure Source Automatic Cuff Blood Pressure Source [Right Arm] Blood Pressure Position Supine Blood Pressure Position [Right Arm] 02 Sat by Pulse Oximetry 99 95 Oxygen Delivery Method Room Air Room Air Room Air Lab Data Lab results reviewed: Yes I reviewed the patient's lab results. Lab Results 11/19/23 14:45: WBC 9.0, RBC 4.54, Hgb 15.1, Hct 45.3, MCV 99.7 H, MCH 33.2 H, MCHC 33.3, RDW 13.6, Plt Count 153, MPV 10.5 H, Neut % (Auto) 81.5 H, Lymph % (Auto) 9.5 L, [place] % (Auto) 7.0, Eos % (Auto) 1.0, Baso % (Auto) 1.0, Neut # (Auto) 7.3, Lymph # (Auto) 0.9, [place] # (Auto) 0.6, Eos # (Auto) 0.1, Baso # (Auto) 0.1, Sodium 136, Potassium 4.1, Chloride 104, Carbon Dioxide 25, Anion Gap 11.1, BUN 16, Creatinine 1.00, Estimated Creat Clear 38, Estimated GFR 53 L, Est GFR ( Amer) 64, Glucose 114 H, Calcium 8.8, Magnesium 1.9, Total Bilirubin 1.3, AST 33, ALT 28, Alkaline Phosphatase 106, Total Creatine Kinase 33, Total Protein 7.3, Albumin 4.2, Globulin 3.1, Albumin/Globulin Ratio 1.4 11/19/23 15:47: Urine Color Yellow, Urine Appearance Clear, Urine pH 6.0, Ur Specific Prospect 1.025, Urine Protein Negative, Urine Glucose (UA) Negative, Urine Ketones Negative, Urine Blood Trace-i, Urine Nitrate Negative, Urine Bilirubin Negative, Urine Urobilinogen 0.2, Ur Leukocyte Esterase Negative, Urine RBC 10-20, Urine WBC 3-5, Ur Squamous Epith Cells 5-10, Amorphous Sediment 1+, Urine Bacteria 1+ 11/19/23 14:45 11/19/23 14:45 Orders (Tests/Meds): ED MEDICATIONS Generic Name Dose Route Start Last Admin Trade Name Freq PRN Reason Stop Dose Admin Acetaminophen 650 mg 11/19/23 20:13 Acetaminophen 325mg Tab PO 12/19/23 20:12 Q6HP PRN Fever or Mild Pain (1-3) Lactated Ringer's 1,000 mls @ 50 mls/hr 11/19/23 20:13 11/19/23 21:11 Lactated Ringer's 1000 Ml Bag IV 12/19/23 20:12 50 mls/hr .Q20H MAGDALENA Administration Discontinued Medications Generic Name Dose Route Start Last Admin Trade Name Freq PRN Reason Stop Dose Admin Lactated Ringer's 1,000 mls @ 999 mls/hr 11/19/23 14:41 11/19/23 14:47 Lactated Ringer's 1000 Ml Bag IV 11/19/23 15:41 999 mls/hr .Q1H1M ONE Administration Trimethoprim/Sulfamethoxazole 1 each 11/19/23 16:56 11/19/23 17:02 Sulfa/Trimethoprim 1 Tablet PO 11/19/23 16:57 1 each ONCE ONE Administration ORDERS Category Date Time Status CT angio head Stat Cat Scan 11/19/23 16:[address] angio neck Stat Cat Scan 11/19/23 16:[address] head/brain wo con Stat Cat Scan 11/19/23 16:55 Completed CBC w/Auto Diff [Complete Blood Count Auto Diff] Stat Lab 11/19/23 14:45 Completed CK [Creatine Kinase] Stat Lab 11/19/23 14:45 Completed CMP [Comprehensive Metabolic Panel] Stat Lab 11/19/23 14:45 Completed Magnesium Stat Lab 11/19/23 14:45 Completed UA [Urinalysis and Microscopic] Stat Lab 11/19/23 15:47 Completed Medical Decision Narrative: In summary patient is a 83-year-old female who presents to the emergency department for evaluation of asthenia. Patient is hemodynamically stable upon arrival, afebrile. Physical exam is remarkable for nonfocal weakness in all 4 extremities. Patient had a NIH stroke score 15 due to the weakness but also the inability to see which is not acute. Patient's Glascow coma score is 15 however. Differential diagnosis includes stroke versus functional decline versus occult infection versus electrolyte abnormality versus myopathy etc. Initial workup will be conducted with hematologic labs CT scan of the head CTA of the head and neck urinalysis. Initial interventions include crystalloid bolus Tylenol. Initial workup reviewed by me shows slightly impaired renal function and GFR, urinalysis with hematuria but no nitrites with microscopic exam showing 1+ bacteria and my informal interpretation of her CT scan shows no acute process and chronic changes prior to radiology read. Upon repeat evaluation patient is unable to ambulate after initial interventions. Given this had interactive discussion with Dr. Hussein about patient management and who is on-call for Dr. Blanco who is agreed for admission for further evaluation and care Critical Care Critical Care Time Critical Care Time: No
[2023-11-19] MEDS: LACTATED RINGERS 1000ML 1,000 ML 999 ML IV (14:47)
[2023-11-19 14:58] LABS: Basophils # 0.1 K/mm3 (0-0.2); Eosinophils # 0.1 K/mm3 (0.0-0.4); Hematocrit 45.3 % (37.0-47.0); Hemoglobin 15.1 g/dL (12.2-16.2); Lymphocytes # 0.9 K/mm3 (0.7-4.5); Lymphocytes % 9.5 % (10-50); Mean Corpuscular HGB Conc 33.3 g/dL (31.8-35.4); Mean Corpuscular Hemoglobin 33.2 pg (27.0-31.2); Mean Corpuscular Volume 99.7 fl (81-99); Mean Platelet Volume 10.5 fl (7.4-10.4); Monocytes # 0.6 K/mm3 (0.1-1.0); Neutrophils # 7.3 K/mm3 (1.8-7.8); Neutrophils % 81.5 % (37.0-80.0); Platelet Count 153 K/mm3 (142-424); Red Blood Count 4.54 M/mm3 (4.20-5.40); Red Cell Distribution Width 13.6 % (11.5-17.5)
[2023-11-19 15:00] LABS: Albumin Level 4.2 g/dl (3.5-5.0); Chloride 104 mmol/L (98-107); Potassium 4.1 mmoL/L (3.5-5.1); Sodium 136 mmol/L (136-145)
[2023-11-19 15:03] LABS: Alanine Aminotransferase 28 U/L (12-78); Albumin/Globulin Ratio 1.4 (1.1-1.8); Alkaline Phosphatase 106 U/L (38-126); Anion Gap 11.1 mEq/L (5-15); Aspartate Amino Transferase 33 U/L (14-36); Bilirubin,Total 1.3 mg/dl (0.2-1.3); Blood Urea Nitrogen 16 mg/dl (7-17); Calcium 8.8 mg/dl (8.4-10.2); Carbon Dioxide 25 mmol/L (22.0-30.0); Creatine Kinase 33 U/L (30-135); Creatinine Clearance Estimated 38 mL/min (50-200); Estimated Glomerular Filt Rate 53 ml/min (>60); GFR (African American) 64 ML/MIN (>60); Globulin 3.1 g/dL (1.3-3.2); Glucose 114 mg/dl (74-100); Total Protein,Serum 7.3 g/dl (6.3-8.2)
[2023-11-19 15:04] LABS: Magnesium 1.9 mg/dl (1.6-2.3)
[2023-11-19 15:53] LABS: Microscopic, Urine URINE MICROSCOPIC (MICROSCOPIC)
[2023-11-19 15:55] LABS: Appearance,Urine CLEAR (Clear); Bilirubin,Urine Negative (Negative); Blood, Urine TRACE-I (Negative); Color,Urine YELLOW (Yellow); Glucose,Urine (UA) Negative (Negative); Ketones,Urine Negative (Negative); Leukocyte Esterase,Urine Negative (Negative); Nitrate,Urine Negative (Negative); Protein,Urine Negative (Negative); Specific Gravity, Urine 1.025 (1.005-1.030); Urobilinogen,Urine 0.2 EU/dl (0.2)
[2023-11-19 16:11] LABS: Amorphous Sediment,Urine 1+ /lpf; Bacteria,Urine 1+ /lpf
--- NOTE | 2023-11-19 16:51 | PC.NURSE ---
Orthostatic vitals completed and given to PRISCILA Kay: Aniya, chemical lab supervisor and I tried to assist patient in ambulating, pt was unable to ambulate. PRISCILA Kay aware
--- NOTE | 2023-11-19 16:54 | CT_ITS ---
PROCEDURE INFORMATION: Exam: CTA Head With Contrast, Arteriography Exam date and time: 11/19/2023 6:09 PM Age: 83 years old Clinical indication: Stroke-like symptoms; Arsenio lower extremity weakness; Additional info: Lateral extremity weakness TECHNIQUE: Imaging protocol: Computed tomographic angiography of the head with contrast. Exam focused on the arteries. 3D rendering (Not supervised by radiologist): MIP and/or 3D reconstructed images were created by the technologist. Radiation optimization: All CT scans at this facility use at least one of these dose optimization techniques: automated exposure control; mA and/or kV adjustment per patient size (includes targeted exams where dose is matched to clinical indication); or iterative reconstruction. Contrast material: ISOVUE; Contrast volume: 100 ml; Contrast route: INTRAVENOUS (IV); COMPARISON: CT HEAD/BRAIN WO CON 11/19/2023 6:06 PM FINDINGS: ANTERIOR CIRCULATION: Right internal carotid artery: Moderate calcific atherosclerotic disease of the right intracranial ICA resulting in moderate stenosis of the clinoid segment. Right middle cerebral artery: No occlusion or significant stenosis. No aneurysm. Right anterior cerebral artery: No occlusion or significant stenosis. No aneurysm. Left internal carotid artery: Moderate calcific atherosclerotic disease of the left intracranial ICA resulting in moderate stenosis of the clinoid segment. Left middle cerebral artery: No occlusion or significant stenosis. No aneurysm. Left anterior cerebral artery: No occlusion or significant stenosis. No aneurysm. POSTERIOR CIRCULATION: Right vertebral artery: No occlusion or significant stenosis. No aneurysm. Left vertebral artery: No occlusion or significant stenosis. No aneurysm. Basilar artery: No occlusion or significant stenosis. No aneurysm. Right posterior cerebral artery: No occlusion or significant stenosis. No aneurysm. Left posterior cerebral artery: No occlusion or significant stenosis. No aneurysm. Brain: Right frontal lobe and anterior right temporal encephalomalacia. Cerebral ventricles: No ventriculomegaly. Bones/joints: Right craniectomy. Soft tissues: Unremarkable. IMPRESSION: 1. Moderate calcific atherosclerotic disease of the right intracranial ICA resulting in moderate stenosis of the clinoid segment. 2. Moderate calcific atherosclerotic disease of the left intracranial ICA resulting in moderate stenosis of the clinoid segment.
--- NOTE | 2023-11-19 16:54 | CT_ITS ---
PROCEDURE INFORMATION: Exam: CTA Neck With Contrast Exam date and time: 11/19/2023 6:09 PM Age: 83 years old Clinical indication: Stroke-like symptoms; Arsenio lower extremity weakness; Additional info: Bilateral lower extremity weakness TECHNIQUE: Imaging protocol: Computed tomographic angiography of the neck with contrast. Exam focused on the cervical segments of the vasculature. 3D rendering (Not supervised by radiologist): MIP and/or 3D reconstructed images were created by the technologist. Radiation optimization: All CT scans at this facility use at least one of these dose optimization techniques: automated exposure control; mA and/or kV adjustment per patient size (includes targeted exams where dose is matched to clinical indication); or iterative reconstruction. Contrast material: ISOVUE; Contrast volume: 100 ml; Contrast route: INTRAVENOUS (IV); COMPARISON: CT ANGIO HEAD 11/19/2023 6:09 PM FINDINGS: Right common carotid artery: Moderate calcific atherosclerotic disease of the right carotid bulb resulting in moderate stenosis. Right internal carotid artery: No stenosis of the extracranial segment. No dissection or occlusion. Right external carotid artery: No occlusion or stenosis of the origin. Left common carotid artery: Mild calcific atherosclerotic disease of the left carotid bulb resulting in mild stenosis. Left internal carotid artery: No stenosis of the extracranial segment. No dissection or occlusion. Left external carotid artery: No occlusion or stenosis of the origin. Right vertebral artery: The right vertebral artery is extremely diminutive and loses contrast opacification at the C2 level and reconstitutes at C1 in his minimally contributory to the basilar artery. Left vertebral artery: No stenosis. No dissection or occlusion. Soft tissues: Normal. No significant soft tissue swelling. Bones/joints: No acute fracture. IMPRESSION: Moderate calcific atherosclerotic disease of the right carotid bulb resulting in moderate stenosis. REFERENCES: NASCET CRITERIA. The degree of stenosis in the cervical segment of the internal carotid artery is based on NASCET criteria. Normal is no stenosis. Mild is less than 50% stenosis. Moderate is 50-69% stenosis. Severe is 70% to 99% stenosis. Total occlusion is no detectable patent lumen.
--- NOTE | 2023-11-19 16:55 | CT_ITS ---
PROCEDURE INFORMATION: Exam: CT Head Without Contrast Exam date and time: 11/19/2023 6:06 PM Age: 83 years old Clinical indication: Stroke-like symptoms; Arsenio lower extremity weakness; Additional info: Bilateral lower extremity weakness TECHNIQUE: Imaging protocol: Computed tomography of the head without contrast. Radiation optimization: All CT scans at this facility use at least one of these dose optimization techniques: automated exposure control; mA and/or kV adjustment per patient size (includes targeted exams where dose is matched to clinical indication); or iterative reconstruction. Other technique: STROKE PROTOCOL was implemented. COMPARISON: No relevant prior studies available. FINDINGS: Brain: Postsurgical changes compatible with right frontal craniectomy with associated right temporal lobe, and right frontal lobe encephalomalacia. There is moderate diffuse cerebral volume loss present. Multiple subcortical and deep hypoattenuating white matter foci are present, likely related to small vessel senescent changes and can also be seen with prior infectious / inflammatory insult, or prior traumatic events. No hyperattenuating foci are identified to suggest acute intracranial hemorrhage. Cerebral ventricles: No ventriculomegaly. Paranasal sinuses: See Soft tissues finding. Mastoid air cells: Visualized mastoid air cells are well aerated. Bones: See Brain finding. Soft tissues: Soft tissue partial opacification of the left frontal, ethmoid, and maxillary sinuses. IMPRESSION: 1. Multiple subcortical and deep hypoattenuating white matter foci are present, likely related to small vessel senescent changes and can also be seen with prior infectious / inflammatory insult, or prior traumatic events. 2. No hyperattenuating foci are identified to suggest acute intracranial hemorrhage. ASSESSMENT: ASPECTS ([facility] Stroke Program Early CT Score) is 10.
[2023-11-19] MEDS: SULFA/TRIMETHOPRIM 1 TABLET 1 EACH PO (17:02)
--- NOTE | 2023-11-19 18:16 | PC.NURSE ---
PT RETURNED FROM CT
--- NOTE | 2023-11-19 20:26 | PC.NURSE ---
Attempted to call report to second floor, no answer at this time.
--- NOTE | 2023-11-19 20:45 | PC.NURSE ---
Attempted to call report again, RN states she was in a patient's room and will call back receive report.
--- NOTE | 2023-11-19 20:53 | PC.NURSE ---
spoke with Dr Hussein on the phone, new orders for am labs and PT- OT evals 11/19.
--- NOTE | 2023-11-19 21:04 | PC.NURSE ---
Patient arrived to floor via stretcher from ED at 20:57.
[2023-11-19] MEDS: LACTATED RINGERS 1000ML 1,000 ML 50 ML IV (21:11)
[2023-11-20] MEDS: METOPROLOL TARTRATE 25MG TABLET 25 MG PO ×3 (00:23→20:29)
--- NOTE | 2023-11-20 02:18 | PC.NURSE ---
Addendum entered by Lurdes Matute RN 11/20/23 02:19: Contacted Dr Hussein 11/20/23 @ 4772 for HS meds. Orders to hold all but Metoprolol at this time. Pt tolerating fluids well. Original Note: Contacted Dr Hussein for HS meds. Orders to hold all but Metoprolol at this time. Pt tolerating fluids well.
[2023-11-20 04:00] VITALS: BP 148/67; PULSE 71; RESP 18; TEMP 36.5; O2SAT 96; BMI 22.4
--- NOTE | 2023-11-20 05:41 | PC.NURSE ---
Pt arrived to the floor around 2100, pt is alert to self and place. Pt will answer simple questions and respond in conversation however while talking pt keeps her eyes closed and does not make eye contact. Pt caregiver has been at bedside throughout this shift and is helpful with pt communication. Caregiver states that this is pt baseline and reports that pt was able to bear weight on both lower extremities prior to 11/19/23 but has not been able to since. Pt has had no acute changes this shift and denies pain she is tolerating fluids well and continues to rest with eyes closed at this time.
[2023-11-20 06:57] LABS: Basophils # 0.1 K/mm3 (0-0.2); Eosinophils % 0.5 % (0.1-12.0); Hematocrit 40.4 % (37.0-47.0); Hemoglobin 13.6 g/dL (12.2-16.2); Lymphocytes # 1.7 K/mm3 (0.7-4.5); Lymphocytes % 23.8 % (10-50); Mean Corpuscular HGB Conc 33.6 g/dL (31.8-35.4); Mean Corpuscular Volume 98.2 fl (81-99); Mean Platelet Volume 10.8 fl (7.4-10.4); Monocytes # 0.7 K/mm3 (0.1-1.0); Monocytes % 9.8 % (1.7-9.3); Neutrophils # 4.5 K/mm3 (1.8-7.8); Neutrophils % 64.8 % (37.0-80.0); Platelet Count 133 K/mm3 (142-424); Red Blood Count 4.12 M/mm3 (4.20-5.40); Red Cell Distribution Width 13.6 % (11.5-17.5)
[2023-11-20 07:06] LABS: Albumin Level 3.3 g/dl (3.5-5.0); Chloride 107 mmol/L (98-107); Potassium 3.9 mmoL/L (3.5-5.1); Sodium 136 mmol/L (136-145)
[2023-11-20 07:09] LABS: Alanine Aminotransferase 20 U/L (12-78); Albumin/Globulin Ratio 1.2 (1.1-1.8); Alkaline Phosphatase 88 U/L (38-126); Anion Gap 6.9 mEq/L (5-15); Aspartate Amino Transferase 29 U/L (14-36); Bilirubin,Total 0.8 mg/dl (0.2-1.3); Blood Urea Nitrogen 14 mg/dl (7-17); Calcium 8.1 mg/dl (8.4-10.2); Carbon Dioxide 26 mmol/L (22.0-30.0); Creatinine Clearance Estimated 38 mL/min (50-200); Estimated Glomerular Filt Rate 69 ml/min (>60); GFR (African American) 83 ML/MIN (>60); Globulin 2.7 g/dL (1.3-3.2); Glucose 101 mg/dl (74-100); Magnesium 1.9 mg/dl (1.6-2.3)
--- NOTE | 2023-11-20 07:38 | [facility].PTEV ---
Physical Therapy Evaluation Rehab PT IP Evaluation Start: 11/19/23 20:13 Freq: ONCE Status: Active Protocol: Document 11/20/23 07:31 FARHAT (Rec: 11/20/23 07:35 FARHAT [id number]) Subjective/History History History Per ER history: Patient presents for evaluation of acute STEMI a. Patient last known well yesterday. Normally at baseline patient is ambulatory and independent of activities of daily living. Over the last 24 hours patient has progressed to walking independently to not being able to stand at all. Patient reports muscle twitching in her bilateral lower extremities and being weak. Patient was unable to ambulate even with a walker. She denies chest pain shortness of breath fever chills hemoptysis hematochezia melena nausea vomiting diarrhea. She denies any change in sensorium. Subjective Subjective Pt unable to provide name and bday. I usually say it quickly . Pt reports she lives in a home with ramped entrance. Pt reports she lives with about 40 other people. Pt denies living in senior care. Pt reports she was IND with mobility without AD. Not driving prior to admission. New diagnosis of cancer in past 12 No months? Rehab PT IP Eval Objective Appearance Patient Behavior Appropriate,Confused Difficulty following instructions mild Speech Pattern Soft-Spoken Ambulation Patient Able to Ambulate No Balance Ability to Arise Able, uses arms to help Sitting Balance Leans or slides in chair Standing Balance Unsteady Transfers Bed Transfer Ability Moderate x 1 (50% assist) Sit to Stand Bed Transfer Ability Maximum x 1 (75% assist) Rehab PT IP prob,goals,plan Problems Date of Evaluation: 11/20/23 PT IP Problems Bed Mobility,Transfers,Gait, Self care,Safety Rehab Potential Rehab Potential Good Equipment Needs Assistive Devices Rolling / Wheeled Walker Plan PT Intervention Plan Bed Mobility,Transfers,Gait, Balance,Safety,Therapeutic Exercise Other Intervention Plan 1-2 times PT Plan Frequency Daily Duration LOS Discharge Goals Bed Transfer Ability Minimal x 1 (25% assist), Moderate x 1 (50% assist) Discharge Plan PT Discharge Plan Initial physical therapy evaluation performed. Patient presents below baseline at this time in functional mobility, transfers, and strength. PT unsure of pt's baseline mobility d/t pt being slightly confused during history taking. Pt not safe to return home at this time d/t current level of functional mobility. PT recommending short-term rehabilitation stay upon d/c from [facility]. Pt would benefit from skilled PT while at [facility] to prevent further functional decline and maximize safety with mobility. Eval Complexity Eval Charge Codes 97390 - Moderate Complexity PHYSICIAN CERTIFICATION: I certify the specified therapy services for Kiara Orozco are required, authorized, and reviewed every 30 days.
[2023-11-20 07:39] LABS: Thyroid Stimulating Hormone 0.27 uIU/mL (0.465-4.68)
[2023-11-20 08:00] VITALS: BP 123/60; PULSE 58; RESP 18; TEMP 37.3; O2SAT 94
--- NOTE | 2023-11-20 08:39 | EXP.HP ---
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 She had been in her usual state of health up until the day prior to admission, at which point she started having problems with leg weakness and jerking and difficulty walking. She is unsure what is causing her problem but states that she has not had any leg jerking since she came to the ER last night. No seizure activity or new confusion has been reported. 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 [facility] and has around the clock care. [facility] Disclaimer: The information contained in this section may have been updated after the patient was seen, as this information can be updated by other users. Medical History (Updated 11/20/23 @ 08:52 by Israel Blanco MD) History of CVA (cerebrovascular accident) Osteomyelitis of the skull Meningioma, cerebral History of left heart catheterization Dementia Sinus pause Sinus bradycardia HLD (hyperlipidemia) HHD (hypertensive heart disease) CAD (coronary artery disease) Snoring Palpitations Chest pain, atypical Surgical History Hx of cataract surgery History of resection of meningioma History of colonoscopy History of breast biopsy History of craniotomy Family History No significant family history Social History Smoking Status: Never smoker second hand exposure: No alcohol intake: never substance use type: denies use current occupational status: retired Travel in the last 8 weeks: None household members: none housing: assisted living facility current occupational exposures/hazards: No caffeine: Yes Review of Systems Constitutional Constitutional: Denies chills and Denies fever(s) *Cardiovascular Cardiovascular: Denies chest pain and Denies dyspnea *Respiratory Respiratory: Denies cough and Denies dyspnea *Gastrointestinal Gastrointestinal: Denies change in stool character and Denies nausea *Genitourinary Genitourinary: Denies dysuria *Musculoskeletal Musculoskeletal: Denies arthralgias *Neurologic Neurologic: Reports as per [facility] Meds Home Medications and Allergies Home Medications ?Medication ?Instructions ?Recorded ?Confirmed ?Type atorvastatin 40 mg tablet 40 mg PO HS 09/01/19 11/20/23 History multivitamin 1 tab PO DAILY Supplement 07/30/20 11/19/23 History apixaban 2.5 mg tablet (Eliquis) 2.5 mg PO BID 03/17/22 11/19/23 History aspirin 81 mg tablet,delayed 81 mg PO DAILY #30 tabs 03/21/22 11/19/23 Rx release quetiapine 25 mg tablet (Seroquel) 25 mg PO 1200,1600,2100 10/05/22 11/20/23 History mirtazapine 7.5 mg tablet 7.5 mg PO HS 01/16/23 11/19/23 History melatonin 10 mg tablet 10 mg PO HS PRN Sleep 11/19/23 11/19/23 History digoxin 125 mcg (0.125 mg) tablet 0.125 mg PO DAILY 11/20/23 11/20/23 History donepezil 5 mg tablet 5 mg PO BID 11/20/23 11/19/23 History memantine 10 mg tablet 10 mg PO BID 11/20/23 11/19/23 History metoprolol succinate 25 mg 25 mg PO BID 11/20/23 11/19/23 History tablet,extended release 24 hr New Prescriptions to Start Prescriptions: Allergies Allergy/AdvReac Type Severity Reaction Status Date / Time ertapenem [From INVANZ] Allergy Severe SEIZURE Verified 05/22/23 10:10 dexamethasone Allergy Intermediate I-HIVES Verified 05/22/23 10:10 diphenhydramine Allergy Verified 11/19/23 14:34 [From Benadryl] Sulfa (Sulfonamide AdvReac Mild VOMITING Verified 05/22/23 10:10 Antibiotics) rivastigmine AdvReac nausea/vomi Verified 05/22/23 10:10 ting Exam Data for Last 24 hours Vital signs and Labs for Last 24 Hours: Temp Pulse Resp BP Pulse Ox O2 Del Method 97.7 F 71 18 148/67 H 96 Room Air 11/20/23 04:00 11/20/23 04:00 11/20/23 04:00 11/20/23 04:00 11/20/23 04:00 11/20/23 08:25 Laboratory Results - last 24 hr 11/19/23 14:45: WBC 9.0, RBC 4.54, Hgb 15.1, Hct 45.3, MCV 99.7 H, MCH 33.2 H, MCHC 33.3, RDW 13.6, Plt Count 153, MPV 10.5 H, Neut % (Auto) 81.5 H, Lymph % (Auto) 9.5 L, [place] % (Auto) 7.0, Eos % (Auto) 1.0, Baso % (Auto) 1.0, Neut # (Auto) 7.3, Lymph # (Auto) 0.9, [place] # (Auto) 0.6, Eos # (Auto) 0.1, Baso # (Auto) 0.1, Sodium 136, Potassium 4.1, Chloride 104, Carbon Dioxide 25, Anion Gap 11.1, BUN 16, Creatinine 1.00, Estimated Creat Clear 38, Estimated GFR 53 L, Est GFR ( Amer) 64, Glucose 114 H, Calcium 8.8, Magnesium 1.9, Total Bilirubin 1.3, AST 33, ALT 28, Alkaline Phosphatase 106, Total Creatine Kinase 33, Total Protein 7.3, Albumin 4.2, Globulin 3.1, Albumin/Globulin Ratio 1.4 11/19/23 15:47: Urine Color Yellow, Urine Appearance Clear, Urine pH 6.0, Ur Specific [place] 1.025, Urine Protein Negative, Urine Glucose (UA) Negative, Urine Ketones Negative, Urine Blood Trace-i, Urine Nitrate Negative, Urine Bilirubin Negative, Urine Urobilinogen 0.2, Ur Leukocyte Esterase Negative, Urine RBC 10-20, Urine WBC 3-5, Ur Squamous Epith Cells 5-10, Amorphous Sediment 1+, Urine Bacteria 1+ 11/20/23 06:38: WBC 7.0, RBC 4.12 L, Hgb 13.6, Hct 40.4, MCV 98.2, MCH 33.0 H, MCHC 33.6, RDW 13.6, Plt Count 133 L, MPV 10.8 H, Neut % (Auto) 64.8, Lymph % (Auto) 23.8, [place] % (Auto) 9.8 H, Eos % (Auto) 0.5, Baso % (Auto) 1.0, Neut # (Auto) 4.5, Lymph # (Auto) 1.7, [place] # (Auto) 0.7, Eos # (Auto) 0.0, Baso # (Auto) 0.1, Sodium 136, Potassium 3.9, Chloride 107, Carbon Dioxide 26, Anion Gap 6.9, BUN 14, Creatinine 0.80, Estimated Creat Clear 38, Estimated GFR 69, Est GFR ( Amer) 83 D, Glucose 101 H, Calcium 8.1 L, Magnesium 1.9, Total Bilirubin 0.8, AST 29, ALT 20 D, Alkaline Phosphatase 88, Total Protein 6.0 L, Albumin 3.3 L D, Globulin 2.7, Albumin/Globulin Ratio 1.2, TSH 0.27 L I & O for Last 24 hours: Intake & Output 11/17/23 11/18/23 11/19/23 11/20/23 23:59 23:59 23:59 23:59 Intake Total 270 / 270 Output Total 0 / 0 Balance 270 / 270 Weight 122 lb 3 oz 121 lb 9 oz Constitutional Constitutional: no acute distress *Routine HEENT Exam Head: Present normocephalic (post surgical changes on right side of head) Eye: Present EOMI and PERRL ENT: Present mucous membranes moist Comments: vision diminished *Routine Neck Exam Neck: Present supple; Absent lymphadenopathy *Routine Respiratory Exam Respiratory: Present CTA bilaterally *Routine Cardiovascular Exam Cardiovascular: Present RRR *Routine Abdominal Exam Abdominal: Present soft and normoactive bowel sounds; Absent tenderness *Routine Rectal Exam Rectal:: deferred *Routine Genitalia Exam Genitalia:: deferred *Routine Extremities Exam Extremities: Absent cyanosis, clubbing or edema *Routine Skin Exam Skin: Present warm; Absent rash *Routine Neurological Exam Neurological: Present alert Comments: laying in bed, no jerking noted in legs, generalized weakness in all extremities, with 4/5 strength Assessment and Plan *Assessment and plan (1) Generalized weakness: Status: Acute Category: Medical Code(s): R53.1 - Weakness (2) History of CVA (cerebrovascular accident): Status: Acute Category: Medical Code(s): Z86.73 - Personal history of transient ischemic attack (TIA), and cerebral infarction without residual deficits (3) Intracranial atherosclerosis: Status: Chronic Category: Medical Code(s): I67.2 - Cerebral atherosclerosis (4) History of benign neoplasm of brain: Status: Chronic Category: Medical Code(s): Z86.011 - Personal history of benign neoplasm of the brain (5) History of craniotomy: Problem Comment: Dr. Jackson, 2014. Active follow-up with Dr. Jackson last visit 07/12/2022. Stable, will return as needed. 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 Status: Chronic Category: Medical Code(s): F03.90 - Unspecified dementia, unspecified severity, without behavioral disturbance, psychotic disturbance, mood disturbance, and anxiety (9) Atrial fibrillation: Status: Acute Qualifiers: Atrial fibrillation type: unspecified chronic Qualified Code(s): I48.20 - Chronic atrial fibrillation, unspecified Category: Medical Code(s): I48.91 - Unspecified atrial fibrillation (10) HLD (hyperlipidemia): Status: Chronic Qualifiers: Hyperlipidemia type: mixed hyperlipidemia Qualified Code(s): E78.2 - Mixed hyperlipidemia Category: Medical Code(s): E78.5 - Hyperlipidemia, unspecified (11) HHD (hypertensive heart disease): Status: Chronic Qualifiers: Heart failure presence: without heart failure Qualified Code(s): I11.9 - Hypertensive heart disease without heart failure Category: Medical Code(s): I11.9 - Hypertensive heart disease without heart failure (12) CAD (coronary artery disease): Status: Chronic Qualifiers: Coronary Disease-Associated Artery/Lesion type: [place] artery [place] vs. transplanted heart: [place] heart Associated angina: without angina Qualified Code(s): I25.10 - Atherosclerotic heart disease of [place] coronary artery without angina pectoris Category: Medical Code(s): I25.10 - Atherosclerotic heart disease of [place] coronary artery without angina pectoris (13) Microscopic hematuria: Status: Acute Category: Medical Code(s): R31.29 - Other microscopic hematuria Plan Patient admitted for further evaluation and management of her symptoms. Plan to continue antibiotics as she could have a UTI, will ask PT/OT to see patient.
[2023-11-20] MEDS: MEMANTINE 10 MG 1 EACH PO ×2 (09:48→20:30)
[2023-11-20] MEDS: DIGOXIN 0.125 MG 1 EACH PO (09:48)
[2023-11-20] MEDS: ELIQUIS 2.5 MG 1 EACH PO ×2 (09:48→20:30)
[2023-11-20] MEDS: DONEPEZIL 5 MG 1 EACH PO ×2 (09:48→20:30)
[2023-11-20] MEDS: NITROFURANTOIN 100MG CAPSULE 100 MG PO ×2 (09:48→20:29)
[2023-11-20] MEDS: PT OWN MED *ASPIRIN 81 MG EC TAB 1 EACH PO (09:48)
--- NOTE | 2023-11-20 10:01 | HMH.OTEV ---
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 She had been in her usual state of health up until the day prior to admission, at which point she started having problems with leg weakness and jerking and difficulty walking. She is unsure what is causing her problem but states that she has not had any leg jerking since she came to the ER last night. No seizure activity or new confusion has been reported. 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 Patient lives at a small fdc and has around the clock care. Patient lives in a closer on home with / around the clock. Ambulates independently and requires SUP for ADLs. No hx of falling. Subjective I can get up. Assisted Patient to complete bed mobility from supine->sit @ EOB requiring Mod A. Instructed Patient on proper hand and foot placement to complete EOB->SPT with usage of RW requiring Max A X2. Patietn demonstrated poor+ dynamic standing balance. Left Patient sitting upright in chair with needs met. Objective Patient Orientation Person,Name,Age,Birthday,Year Right Upper Extremity Gross ROM WFL Left Upper Extremity Gross ROM WFL Bed Mobility bed mobility - supine/sit Assist Level Maximum x 1 (75% assist) Transfer Training Sit/Stand/Pivot Transfer Assist Level Maximum x 1 (75% assist) Chair Transfer Ability Maximum x 1 (75% assist) Chair Transfer Technique Sit to/from Ambulatory Chair Transfer Assistive Devices Rolling Walker Rehab OT IP prob,goals,plan Problems Date of Evaluation: 11/20/23 OT IP Problems Bed Mobility,Transfers,Balance ,Self care,Safety Rehab Potential Rehab Potential Good Equipment Needs Assistive Devices Rolling / Wheeled Walker Plan OT intervention Plan Bed Mobility,Transfers,Balance ,Self care,Safety,Therapeutic Exercise OT Plan Frequency Daily Duration LOS Discharge Goals Bed Mobility Ability Assistance x1 Sit to Stand Chair Transfer Ability Maximum x 1 (75% assist) Chair Transfer Ability Maximum x 1 (75% assist) Chair Transfer Technique Sit to/from Ambulatory Chair Transfer Assistive Devices Rolling Walker Discharge Plan OT Discharge Plan Recommend patient to return back to closer on with 24/ care. Patient to continue skilled OT IP services while here at [facility]. Eval Complexity Eval Charge Codes 30621 - Low Complexity PHYSICIAN CERTIFICATION: I certify the specified therapy services for Kiara Zapata Ernesto are required, authorized, and reviewed every 30 days.
--- NOTE | 2023-11-20 14:47 | PC.NURSE ---
Pt. aox2 with dementia, assist times 2 to the chair, inc urine and bm with brief in place, takes pills whole, on RA with sats in the 90's, 20g L AC LR@ 50ml/hr, bed alarm active, will continue to monitor.
[2023-11-20 16:00] VITALS: BP 138/75; PULSE 72; RESP 18; TEMP 36.3; O2SAT 98
[2023-11-20 19:55] VITALS: BP 149/79; PULSE 64; RESP 16; TEMP 36.4; O2SAT 98
[2023-11-20] MEDS: PT OWN MED *ATORVASTATIN 40 MG TAB 1 EACH PO (20:29)
[2023-11-20 20:30] VITALS: O2SAT 98
[2023-11-20] MEDS: MIRTAZAPINE 7.5 MG 1 EACH PO (20:31)
[2023-11-20] MEDS: ACETAMINOPHEN 325MG TAB 650 MG PO (20:38)
[2023-11-21 04:00] VITALS: BMI 22.3
[2023-11-21 05:38] VITALS: BP 123/81; PULSE 63; RESP 16; TEMP 36.1; O2SAT 95
--- NOTE | 2023-11-21 05:53 | PC.NURSE ---
Patient alert and oriented to name and only this shift. When asked if she knew where she was, she states [place]. Patient is able to respond in conversation well. Has brief in place for urinary/bowel incontinence. Tolerating room air well with o2 stats >90%. No family or caregivers present this shift. Bed alarm active for patient safety. Call light within reach.
[2023-11-21 08:00] VITALS: BP 128/62; PULSE 54; RESP 17; TEMP 36.4; O2SAT 97
--- NOTE | 2023-11-21 08:22 | EXP.ACUTE.PN ---
Subjective *Date: 11/21/23 *Time: 08:45 Interval history: Patient states she is feeling a bit better this morning. She is very tired. She is complaining of some pain in the left lower quadrant and suprapubic area. She states she slept well. She is trying to eat breakfast. Medical Exam Vital signs and Labs for Last 24 Hours: Vital Signs Temp Pulse Resp BP Pulse Ox O2 Del Method 11/21/23 08:00 97.6 F 54 L 17 128/62 97 Room Air 11/21/23 06:45 Room Air 11/21/23 05:38 97.0 F L 63 16 123/81 95 Room Air 11/21/23 05:00 Room Air 11/21/23 03:05 Room Air 11/21/23 01:04 Room Air 11/20/23 23:00 Room Air 11/20/23 21:08 Room Air 11/20/23 20:30 98 Room Air 11/20/23 19:55 97.6 F 64 16 149/79 H 98 Room Air 11/20/23 17:37 Room Air 11/20/23 16:00 97.4 F L 72 18 138/75 98 Room Air 11/20/23 14:50 Room Air 11/20/23 13:39 Room Air 11/20/23 11:43 Room Air 11/20/23 10:11 Room Air 11/20/23 08:25 Room Air Intake and Output 11/20/23 11/21/23 11/21/23 19:59 03:59 11:59 Intake Total 995 / 995 0 / 995 Output Total 0 / 0 0 / 0 Balance 995 / 995 0 / 995 Intake: Intake, Oral Amount 595 / 595 0 / 595 Intake, Oral Supplement Amount 0 / 0 0 / 0 Intake, Total IV Amount 400 / 400 Lactated Ringers 1000ML 1,000 400 / 400 ml @ 50 mls/hr IV .Q[facility] Rx# :[id number] Output: Output, Urine Amount 0 / 0 0 / 0 Other: Number of Voids 0 0 Number of Unmeasured Voids 1 1 1 Number of Bowel Movements 1 1 1 Weight 121 lb 4.8 oz Patient Weight 11/21/23 11:59 Weight 121 lb 4.8 oz I & O for Labs for Last 24 Hours: Intake & Output 08/04/11/19/23 11/20/23 11/21/23 11:59 11:59 11:59 11:59 Intake Total 270 / 270 995 / 995 Output Total 0 / 0 0 / 0 Balance 270 / 270 995 / 995 Weight 121 lb 9 oz 121 lb 4.8 oz Constitutional: Present no acute distress Respiratory: Present CTA bilaterally Cardiac: Present Reg Rate and Rhythm (frequent ectopics) GI: Present soft and tenderness (RLQ and suprapubic area); Absent distention Extremities: Absent tenderness or edema Skin: Present intact Neuro: Present awake Assessment and Plan *Assessment and plan (1) Generalized weakness: Status: Acute Category: Medical Code(s): R53.1 - Weakness (2) History of CVA (cerebrovascular accident): Status: Acute Category: Medical Code(s): Z86.73 - Personal history of transient ischemic attack (TIA), and cerebral infarction without residual deficits (3) Intracranial atherosclerosis: Status: Chronic Category: Medical Code(s): I67.2 - Cerebral atherosclerosis (4) History of benign neoplasm of brain: Status: Chronic Category: Medical Code(s): Z86.011 - Personal history of benign neoplasm of the brain (5) History of craniotomy: Problem Comment: Dr. Jackson, 2014. Active follow-up with Dr. Jackson last visit 07/12/2022. Stable, will return as needed. 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 Status: Chronic Category: Medical Code(s): F03.90 - Unspecified dementia, unspecified severity, without behavioral disturbance, psychotic disturbance, mood disturbance, and anxiety (9) Atrial fibrillation: Status: Acute Qualifiers: Atrial fibrillation type: unspecified chronic Qualified Code(s): I48.20 - Chronic atrial fibrillation, unspecified Category: Medical Code(s): I48.91 - Unspecified atrial fibrillation (10) HLD (hyperlipidemia): Status: Chronic Qualifiers: Hyperlipidemia type: mixed hyperlipidemia Qualified Code(s): E78.2 - Mixed hyperlipidemia Category: Medical Code(s): E78.5 - Hyperlipidemia, unspecified (11) HHD (hypertensive heart disease): Status: Chronic Qualifiers: Heart failure presence: without heart failure Qualified Code(s): I11.9 - Hypertensive heart disease without heart failure Category: Medical Code(s): I11.9 - Hypertensive heart disease without heart failure (12) CAD (coronary artery disease): Status: Chronic Qualifiers: Associated angina: without angina Coronary Disease-Associated Artery/Lesion type: [place] artery [place] vs. transplanted heart: [place] heart Qualified Code(s): I25.10 - Atherosclerotic heart disease of [place] coronary artery without angina pectoris Category: Medical Code(s): I25.10 - Atherosclerotic heart disease of [place] coronary artery without angina pectoris (13) Microscopic hematuria: Status: Acute Category: Medical Code(s): R31.29 - Other microscopic hematuria (14) UTI (urinary tract infection): Status: Acute Category: Medical Code(s): N39.0 - Urinary tract infection, site not specified Plan Patient has been continued on antibiotics for possible UTI. Was seen by PT/OT and they feel she will need short-term rehab or return back to 24/[address] Blanco entry - Saw patient, agree with above note. OK for discharge home today. Patient will continue antibiotics for UTI, plan for home health PT and OT.
[2023-11-21] MEDS: NITROFURANTOIN 100MG CAPSULE 100 MG PO (08:25)
[2023-11-21] MEDS: PT OWN MED *ASPIRIN 81 MG EC TAB 1 EACH PO (08:25)
[2023-11-21] MEDS: DONEPEZIL 5 MG 1 EACH PO (08:25)
[2023-11-21] MEDS: METOPROLOL TARTRATE 25MG TABLET 25 MG PO (08:25)
[2023-11-21] MEDS: MEMANTINE 10 MG 1 EACH PO (08:26)
[2023-11-21] MEDS: ELIQUIS 2.5 MG 1 EACH PO (08:27)
--- NOTE | 2023-11-21 11:58 | SW/DCPLANNER ---
ordered home health services for this patient. Patient and caregiver prefer [facility]. Patient information/order has been faxed. Charlene nelson/ [facility] stated that services will start tomorrow. Patient will discharge home today.
--- NOTE | 2023-11-23 12:37 | CARE MANAGER ---
Called and spoke with patient's restorative care technician. She stated that patient is doing really well, has started antibiotic prescribed at discharge and HH started yesterday. No concerns voiced at time of call.
--- NOTE | 2023-11-27 14:42 | EXP.DC.SUM ---
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 She had been in her usual state of health up until the day prior to admission, at which point she started having problems with leg weakness and jerking and difficulty walking. She is unsure what is causing her problem but states that she has not had any leg jerking since she came to the ER last night. No seizure activity or new confusion has been reported. 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 Patient lives at a small assisted and has around the clock care. Hospital Course Hospital Course Hospital Course: On admission patient was started on antibiotics for UTI. PT and OT were consulted. She did have some discomfort in the suprapubic region. PT and OT evaluation reported that she would need short-term rehab or return back to 06/11 care once discharged. Patient did feel better on this date of discharge 11/21/2023. She was able to eat without problems. She was discharged to home on nitro Furadantin with home health for PT and OT. To note patient lives in a small assisted and has [id number] care. Follow-up with Dr. Blanco on 12/05/2023 Exam Data for Last 24 hours Vital signs and Labs for Last 24 Hours: Temp Pulse Resp BP Pulse Ox O2 Del Method 97.6 F 54 L 17 128/62 97 Room Air 11/21/23 08:00 11/21/23 08:00 11/21/23 08:00 11/21/23 08:00 11/21/23 08:00 11/21/23 09:00 Narrative: Constitutional: Present no acute distress Respiratory: Present CTA bilaterally Cardiac: Present Reg Rate and Rhythm (frequent ectopics) GI: Present soft and tenderness (RLQ and suprapubic area); Absent distention Extremities: Absent tenderness or edema Skin: Present intact Neuro: Present awake Results Data Completed and Pending Completed studies during hospitalization [Text1]: 11/19/2023 Head CTA IMPRESSION: 1. Moderate calcific atherosclerotic disease of the right intracranial ICA resulting in moderate stenosis of the clinoid segment. 2. Moderate calcific atherosclerotic disease of the left intracranial ICA resulting in moderate stenosis of the clinoid segme 11/19/2023 CTA of the neck COMPARISON: CT ANGIO HEAD 11/19/2023 6:09 PM FINDINGS: Right common carotid artery: Moderate calcific atherosclerotic disease of the right carotid bulb resulting in moderate stenosis. Right internal carotid artery: No stenosis of the extracranial segment. No dissection or occlusion. Right external carotid artery: No occlusion or stenosis of the origin. Left common carotid artery: Mild calcific atherosclerotic disease of the left carotid bulb resulting in mild stenosis. Left internal carotid artery: No stenosis of the extracranial segment. No dissection or occlusion. Left external carotid artery: No occlusion or stenosis of the origin. Right vertebral artery: The right vertebral artery is extremely diminutive and loses contrast opacification at the C2 level and reconstitutes at C1 in his minimally contributory to the basilar artery. Left vertebral artery: No stenosis. No dissection or occlusion. Soft tissues: Normal. No significant soft tissue swelling. Bones/joints: No acute fracture. IMPRESSION: Moderate calcific atherosclerotic disease of the right carotid bulb resulting in moderate stenosis 11/19/2023 CT of the head IMPRESSION: 1. Multiple subcortical and deep hypoattenuating white matter foci are present, likely related to small vessel senescent changes and can also be seen with prior infectious / inflammatory insult, or prior traumatic events. 2. No hyperattenuating foci are identified to suggest acute intracranial hemorrhage. DS: Diagnosis Discharge Diagnosis (1) Generalized weakness: Status: Acute Code(s): R53.1 - Weakness (2) History of CVA (cerebrovascular accident): Status: Acute Code(s): Z86.73 - Personal history of transient ischemic attack (TIA), and cerebral infarction without residual deficits (3) Intracranial atherosclerosis: Status: Chronic Code(s): I67.2 - Cerebral atherosclerosis (4) History of benign neoplasm of brain: Status: Chronic Code(s): Z86.011 - Personal history of benign neoplasm of the brain (5) History of craniotomy: Status: Chronic Code(s): Z98.890 - Other specified postprocedural states Problem details: Dr. Jackson, 2013. Active follow-up with Dr. Jackson last visit 07/12/2022. Stable, will return as needed. (6) Visual hallucinations: Status: Chronic Code(s): R44.1 - Visual hallucinations Problem details: Rare, improving status post cataract surgery (7) MCI (mild cognitive impairment) with memory loss: Status: Chronic Code(s): G31.84 - Mild cognitive impairment of uncertain or unknown etiology (8) Dementia: Status: Chronic Code(s): F03.90 - Unspecified dementia, unspecified severity, without behavioral disturbance, psychotic disturbance, mood disturbance, and anxiety Problem details: Slowly progressive, more so status post right MCA occlusion March 2022. (9) Atrial fibrillation: Status: Acute Code(s): I48.91 - Unspecified atrial fibrillation Qualifiers: Atrial fibrillation type: unspecified chronic Qualified Code(s): I48.20 - Chronic atrial fibrillation, unspecified (10) HLD (hyperlipidemia): Status: Chronic Code(s): E78.5 - Hyperlipidemia, unspecified Qualifiers: Hyperlipidemia type: mixed hyperlipidemia Qualified Code(s): E78.2 - Mixed hyperlipidemia (11) HHD (hypertensive heart disease): Status: Chronic Code(s): I11.9 - Hypertensive heart disease without heart failure Qualifiers: Heart failure presence: without heart failure Qualified Code(s): I11.9 - Hypertensive heart disease without heart failure (12) CAD (coronary artery disease): Status: Chronic Code(s): I25.10 - Atherosclerotic heart disease of [place] coronary artery without angina pectoris Qualifiers: Associated angina: without angina Coronary Disease-Associated Artery/Lesion type: [place] artery [place] vs. transplanted heart: [place] heart Qualified Code(s): I25.10 - Atherosclerotic heart disease of [place] coronary artery without angina pectoris (13) Microscopic hematuria: Status: Acute Code(s): R31.29 - Other microscopic hematuria (14) UTI (urinary tract infection): Status: Acute Code(s): N39.0 - Urinary tract infection, site not specified Meds Home Medications and Allergies Home Medications ?Medication ?Instructions ?Recorded ?Confirmed ?Type atorvastatin 40 mg tablet 40 mg PO HS 09/01/19 11/20/23 History multivitamin 1 tab PO DAILY Supplement 07/30/20 11/19/23 History apixaban 2.5 mg tablet (Eliquis) 2.5 mg PO BID 03/17/22 11/19/23 History aspirin 81 mg tablet,delayed 81 mg PO DAILY #30 tabs 03/21/22 11/19/23 Rx release quetiapine 25 mg tablet (Seroquel) 25 mg PO 1200,1600,2100 10/05/22 11/20/23 History mirtazapine 7.5 mg tablet 7.5 mg PO HS 01/16/23 11/19/23 History melatonin 10 mg tablet 10 mg PO HS PRN Sleep 11/19/23 11/19/23 History digoxin 125 mcg (0.125 mg) tablet 0.125 mg PO DAILY 11/20/23 11/20/23 History donepezil 5 mg tablet 5 mg PO BID 11/20/23 11/19/23 History memantine 10 mg tablet 10 mg PO BID 11/20/23 11/19/23 History metoprolol succinate 25 mg 25 mg PO BID 11/20/23 11/19/23 History tablet,extended release 24 hr nitrofurantoin 100 mg PO Q12H 5 days #10 caps 11/21/23 Rx monohydrate/macrocrystals 100 mg capsule (Macrobid) New Prescriptions to Start Prescriptions: nitrofurantoin monohyd/m-cryst [Macrobid] Israel Blanco Allergies Allergy/AdvReac Type Severity Reaction Status Date / Time ertapenem [From INVANZ] Allergy Severe SEIZURE Verified 05/22/23 10:10 dexamethasone Allergy Intermediate I-HIVES Verified 05/22/23 10:10 diphenhydramine Allergy Verified 11/19/23 14:34 [From Benadryl] Sulfa (Sulfonamide AdvReac Mild VOMITING Verified 05/22/23 10:10 Antibiotics) rivastigmine AdvReac nausea/vomi Verified 05/22/23 10:10 ting Discharge Plan Disposition Patient Disposition: Home Health Service Condition: Fair Discharge Order Discharge Orders: Discharge Order (Routine); Ordered 11/21/23 Ordered By: Israel Blanco Follow up Plan Follow up with: Israel Blanco MD [Primary Care Provider] - 12/05/23 9:45 am Prescriptions/Medication Reconciliation: New nitrofurantoin monohyd/m-cryst [Macrobid] 100 mg capsule 100 mg PO Q12H 5 Days Qty: 10 0RF Rx Instructions: must administer with a meal/food Continued multivitamin Tablet 1 tab PO DAILY quetiapine [Seroquel] 25 mg tablet 25 mg PO 1200,1600,2100 Patient Comments: noon,4p,hs mirtazapine 7.5 mg tablet 7.5 mg PO HS atorvastatin 40 MG tablet 40 mg PO HS Eliquis 2.5 mg tablet 2.5 mg PO BID aspirin 81 mg Tablet,Delayed Release (Dr/Ec) 81 mg PO DAILY Qty: 30 11RF melatonin 10 mg Tablet 10 mg PO HS PRN (Reason: Sleep) donepezil 5 mg tablet 5 mg PO BID digoxin 125 mcg (0.125 mg) tablet 0.125 mg PO DAILY Rx Instructions: TAKE 1 TABLET BY MOUTH ONCE DAILY metoprolol succinate 25 mg tablet extended release 24 hr 25 mg PO BID memantine 10 mg tablet 10 mg PO BID Problem Reconciliation Problems Reviewed?: Yes Patient Discharge Instructions ACTIVITY: Continue current activity DIET: continue same diet Patient Instructions: DI for Urinary Tract Infection (UTI) Print Language: [place]an Providers Primary Care Provider: Israel Blanco Admit Provider: Wilner Hussein Attending Provider: Israel Blanco
== END 2023-11-21 10:01 | disposition home health service (06) ==
LOC: ER 19:18 → 2ND 19:44
PROVIDERS: Physician Assistant; Admitting Provider Internal Medicine Adolescent Medicine; Emergency Provider Emergency Medicine; PCP Family Medicine; Visit Provider Family Medicine
DX: R53.1 Weakness (principal); Z86.73 Personal history of transient ischemic attack (TIA), and cerebral infarction without residual deficits; I67.2 Cerebral atherosclerosis; Z86.011 Personal history of benign neoplasm of the brain; R44.1 Visual hallucinations; G31.84 Mild cognitive impairment of uncertain or unknown etiology; F03.90 Unspecified dementia, unspecified severity, without behavioral disturbance, psychotic disturbance, mood disturbance, and anxiety; I48.20 Chronic atrial fibrillation, unspecified; E78.2 Mixed hyperlipidemia; I11.9 Hypertensive heart disease without heart failure; I25.10 Atherosclerotic heart disease of native coronary artery without angina pectoris; R31.29 Other microscopic hematuria; N39.0 Urinary tract infection, site not specified; Z79.899 Other long term (current) drug therapy
CPT/HCPCS: 36415; 70450; 70496; 70498; 80053; 81001; 82550; 83735; 84443; 85025; 93005; 97162; 97165; 97530; 99285; G0378; J7120

== ENCOUNTER 2024-06-05 12:43 | Emergency (ER) | payer MEDICARE, OTHER, SELFPAY ==
[2024-06-05 12:52] VITALS: BP 183/104; PULSE 72; RESP 18; TEMP 36.9; O2SAT 100; BMI 20.5
--- NOTE | 2024-06-05 12:58 | ED_ITS ---
<Statement entered by Emani Portillo MD - 06/05/24 16:15> I was consulted by the BHANU, and we discussed the complexity of problems being addressed. I approved the treatment and management plan for this patient's care in the emergency department, thus performing a substantive portion of the medical decision making. Emani Portillo MD Discharge Plan Disposition Patient Disposition: Home, Self-Care Condition: Good Prescriptions Prescriptions: New tamsulosin 0.4 mg capsule 0.4 mg PO HS Qty: 10 0RF No Action multivitamin Tablet 1 tab PO DAILY quetiapine [Seroquel] 25 mg tablet 25 mg PO 1200,1600,2100 Patient Comments: noon,4p,hs mirtazapine 7.5 mg tablet 7.5 mg PO HS digoxin 125 mcg (0.125 mg) tablet See Rx Instructions .ROUTE .COMPLEX Qty: 90 3RF Dose Instruction: TAKE 1 TABLET BY MOUTH ONCE DAILY Rx Instructions: TAKE 1 TABLET BY MOUTH ONCE DAILY metoprolol succinate 25 mg tablet extended release 24 hr See Rx Instructions .ROUTE .COMPLEX Qty: 180 3RF Dose Instruction: TAKE 1 TABLET BY MOUTH TWICE A DAY FOR HYPERTENSION Rx Instructions: TAKE 1 TABLET BY MOUTH TWICE A DAY FOR HYPERTENSION atorvastatin 40 MG tablet 40 mg PO HS Eliquis 2.5 mg tablet 2.5 mg PO BID aspirin 81 mg Tablet,Delayed Release (Dr/Ec) 81 mg PO DAILY Qty: 30 11RF melatonin 10 mg Tablet 10 mg PO HS PRN (Reason: Sleep) donepezil 5 mg tablet 5 mg PO BID memantine 10 mg tablet 10 mg PO BID Referrals Follow up/Referrals: Israel Blanco MD [Primary Care Provider] - See instructions Donavan Ardon MD [Referring] - See instructions Activity Restrictions/Add. Instructions Additional Instructions/Restrictions: I have referred you to urology in [place]. Please call and set up your appointment. I have prescribed you tamsulosin to help with passage of the stone. Please take it at bedtime starting tomorrow. If you develop a fever nausea vomiting increasing abdominal pain return to the emergency department. Clinical Impressions Clinical Impression: Ureterolithiasis Print Language Print Language: Serbian Discharge ED Provider: Emani Portillo General Adult HPI General Chief complaint: PAIN Stated complaint: pain in lower left back Time Seen by Provider: 06/05/24 12:58 Mode of Arrival: Wheelchair Source of Information: Patient Limitations: No Limitations Description of Symptoms (Recalled from ER Triage Doc. by RN): Pt presents for evaluation of pain in lower back and left hip. Denies any falls, pain started this AM. Pt rates pain as a 5/10 History of Present Illness HPI narrative: Patient presents for evaluation of left low back pain. Patient's caregiver states that patient has been complaining of left low back pain since this morning. At baseline patient has dementia and is an unreliable historian for the most part. There is no known fall trauma or injury and she has never had this problem before. There is no diarrhea abdominal pain nausea vomiting dysuria although patient wears adult incontinence briefs. Patient was ambulatory at home but patient's caregiver is worried that something is different but not sure what the actual problem is she has never had this before. Related Data Home Medications ?Medication ?Instructions ?Recorded ?Confirmed atorvastatin 40 mg tablet 40 mg PO HS 09/01/19 04/02/24 multivitamin 1 tab PO DAILY Supplement 07/30/20 04/02/24 apixaban 2.5 mg tablet (Eliquis) 2.5 mg PO BID 03/17/22 04/02/24 quetiapine 25 mg tablet (Seroquel) 25 mg PO 1200,1600,2100 10/05/22 04/02/24 mirtazapine 7.5 mg tablet 7.5 mg PO HS 01/16/23 04/02/24 melatonin 10 mg tablet 10 mg PO HS PRN Sleep 11/19/23 04/02/24 donepezil 5 mg tablet 5 mg PO BID 11/20/23 04/02/24 memantine 10 mg tablet 10 mg PO BID 11/20/23 04/02/24 Previous Rx's ?Medication ?Instructions ?Recorded aspirin 81 mg tablet,delayed 81 mg PO DAILY #30 tabs 03/21/22 release digoxin 125 mcg (0.125 mg) tablet See Rx Instructions .Route 12/03/23 .COMPLEX #90 tabs metoprolol succinate 25 mg See Rx Instructions .Route 12/03/23 tablet,extended release 24 hr .COMPLEX #180 tabs tamsulosin 0.4 mg capsule 0.4 mg PO HS #10 caps 06/05/24 Allergies Allergy/AdvReac Type Severity Reaction Status Date / Time ertapenem (From [facility]) Allergy Severe SEIZURE Verified 04/02/24 11:28 dexamethasone Allergy Intermediate I-HIVES Verified 04/02/24 11:28 diphenhydramine (From Allergy Verified 04/02/24 11:28 Benadryl) Sulfa (Sulfonamide AdvReac Mild VOMITING Verified 04/02/24 11:28 Antibiotics) rivastigmine AdvReac nausea/vomi Verified 04/02/24 11:28 jackie [facility] Disclaimer: The information contained in this section may have been updated after the patient was seen, as this information can be updated by other users. 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 Sinus pause Sinus bradycardia HLD (hyperlipidemia) HHD (hypertensive heart disease) CAD (coronary artery disease) Snoring Palpitations Chest pain, atypical Surgical History Hx of cataract surgery History of resection of meningioma History of colonoscopy History of breast biopsy History of craniotomy Family History Other No significant family history Social History Smoking Status: Never smoker second hand exposure: No alcohol intake: never substance use type: denies use current occupational status: retired Travel in the last 8 weeks: None household members: none housing: assisted living facility current occupational exposures/hazards: No caffeine: Yes Have you lived/traveled outside [place] in past 30 days?: No Contact w/someone who lives/traveled outside US past 30 days?: No Exposure to someone with infectious disease in past 14 days?: No Do you have a fever (greater than 100.4 F or 38 C)?: No Have you tested positive for COVID-19: No Exposed to someone with COVID-19 in past 14 days?: No Do you have a sore throat?: No Do you have a cough?: No Do you have any weakness?: No Do you have any diarrhea?: No Are you experiencing any unusual bleeding?: No Do you have any muscle aches/pain?: No Do you have any abdominal pain?: No Are you experiencing loss of taste or smell?: No Other Medical History Have you received the Flu Vaccine for this season: No Have you received the Pneumonia Vaccine: No ROS Obtained: Yes Systems reviewed as appropriate & no additional complaints except as documented Physical Exam General General appearance: alert Respiratory Respiratory exam: Present normal lung sounds bilaterally Cardiovascular Cardiovascular exam: Present regular rate Neurological Exam Neurological exam: Present alert and oriented X3 Medical Decision Making Medical Records Medical records reviewed: Yes I reviewed the patient's medical records. Screening: Per USPSTF and CDC recommendations, given the prevalence of disease in our region, it is our hospital?s policy to screen for HIV and viral Hepatitis for all patients aged 18 and over and those with ongoing risk factors. Ollie Inquiry Pt receiving controlled substance: No Vital Signs: 06/05/24 12:52 06/05/24 14:30 06/05/24 15:00 Temperature 98.4 F Temperature Source Oral Pulse Rate 70 66 Pulse Rate [Right] 72 Respiratory Rate 18 Blood Pressure 163/81 H 150/83 H Blood Pressure [Right Arm] 183/104 H Blood Pressure Mean Blood Pressure Mean [Right Arm] 130 Blood Pressure Source [Right Arm] Automatic Cuff Blood Pressure Position [Right Arm] Sitting 02 Sat by Pulse Oximetry 100 97 99 Oxygen Delivery Method Room Air Room Air Room Air 06/05/24 15:30 Temperature Temperature Source Pulse Rate 60 Pulse Rate [Right] Respiratory Rate Blood Pressure 163/81 H Blood Pressure [Right Arm] Blood Pressure Mean 108 Blood Pressure Mean [Right Arm] Blood Pressure Source [Right Arm] Blood Pressure Position [Right Arm] 02 Sat by Pulse Oximetry 99 Oxygen Delivery Method Room Air Lab Data Lab results reviewed: Yes I reviewed the patient's lab results. Lab Results 06/05/24 13:03: WBC 10.4, RBC 4.81, Hgb 15.3, Hct 45.6, MCV 94.8, MCH 31.8 H, MCHC 33.6, RDW 13.0, Plt Count 146, MPV 12.8 H, Neut % (Auto) 72.9, Lymph % (Auto) 18.4, [place] % (Auto) 8.0, Eos % (Auto) 0.2, Baso % (Auto) 0.3, Neut # (Auto) 7.6, Lymph # (Auto) 1.9, [place] # (Auto) 0.8, Eos # (Auto) 0.0, Baso # (Auto) 0.0, Sodium 141, Potassium 4.0, Chloride 103, Carbon Dioxide 31 H, Anion Gap 11.0, BUN 14, Creatinine 0.70, Estimated Creat Clear 38, Estimated GFR 80, Est GFR ( Amer) 97, Glucose 129 H, Calcium 9.8, Total Bilirubin 1.6 H, A ST 43 H, ALT 28, Alkaline Phosphatase 102, Total Protein 7.7 D, Albumin 4.8, Globulin 2.9, Albumin/Globulin Ratio 1.7, Procalcitonin < 0.030 06/05/24 15:14: Urine Color Yellow, Urine Appearance Clear, Urine pH 7.0, Ur Specific [place] 1.010, Urine Protein Negative, Urine Glucose (UA) Negative, Urine Ketones Negative, Urine Blood Trace-i, Urine Nitrate Negative, Urine Bilirubin Negative, Urine Urobilinogen 0.2, Ur Leukocyte Esterase Negative, Urine RBC 5-10, Urine WBC Occasional 06/05/24 13:03 06/05/24 13:03 Orders (Tests/Meds): ED MEDICATIONS Discontinued Medications Generic Name Dose Route Start Last Admin Trade Name Duaneq PRN Reason Stop Dose Admin Acetaminophen 1,000 mg 06/05/24 13:13 06/05/24 13:21 Acetaminophen 500mg Tab PO 06/05/24 13:14 1,000 mg ONCE ONE Administration Iopamidol 75 ml 06/05/24 14:00 06/05/24 14:01 Iopamidol-370 (76%);100ml Bottle IV 06/05/24 14:01 75 ml ONCE ONE Administration Ketorolac Tromethamine 15 mg 06/05/24 13:13 06/05/24 13:22 Ketorolac 30mg/Ml Vial IV 06/05/24 13:14 15 mg ONCE ONE Administration Lidocaine 1 each 06/05/24 13:13 06/05/24 13:21 Lidocaine 5% Transdermal Patch TP 06/05/24 13:14 1 each ONCE ONE Administration Methocarbamol 500 mg 06/05/24 13:35 06/05/24 14:12 Methocarbamol 500mg Tablet PO 06/05/24 13:36 500 mg ONCE ONE Administration Sodium Chloride 10 ml 06/05/24 14:00 06/05/24 14:01 Sodium Chloride 0.9% 10ml Syr (Rad Only) IV 06/05/24 14:01 10 ml ONCE ONE Administration Tamsulosin HCl 0.4 mg 06/05/24 15:28 06/05/24 15:41 Tamsulosin 0.4mg Capsule PO 06/05/24 15:29 0.4 mg ONCE ONE Administration ORDERS Category Date Time Status CT abdomen pelvis w con Stat Cat Scan 06/05/24 13:[address] lumbar spine wo con Stat Cat Scan 06/05/24 13:13 Completed CBC w/Auto Diff [Complete Blood Count Auto Diff] Stat Lab 06/05/24 13:03 Completed CMP [Comprehensive Metabolic Panel] Stat Lab 06/05/24 13:03 Completed Procalcitonin Stat Lab 06/05/24 13:03 Completed UA [Urinalysis and Microscopic] Stat Lab 06/05/24 15:14 Completed Medical Decision Narrative: In summary patient is a 83-year-old female who presents to the emergency department for evaluation of left low back pain. Patient is initially hypertensive at 183/104 with a pulse of 72 normal sinus rhythm on bedside monitor breathing at 100% on room air 18 times a minute upon arrival, afebrile at 98.4. Physical exam is remarkable for tenderness to palpation in the left lower lumbar paraspinous musculature but also in the midline. Patient has no pain with pelvic compression but does report tenderness about the left hip girdle with no evidence of contusion abrasion deformity swelling ecchymosis. Patient does have retained straight leg raise bilaterally but left-sided causes pain in the low back. Abdomen soft nontender no rebound no guarding no rigidity. Patient is neurovascularly intact distally in her bilateral extremities with no focal neurologic deficits.. Differential diagnosis includes myalgia versus muscle strain versus occult fracture versus sciatica versus kidney stone versus urinary tract infection versus pyelonephritis etc. Initial workup will be conducted with hematologic labs urinalysis CT scan abdomen pelvis. Initial interventions include Tylenol Toradol Lidoderm patch. Initial workup reviewed by me and her hematologic labs are nonactionable and urinalysis has microscopic hematuria but no evidence of infection. Review of her imaging shows that she has a proximately 5 mm left ureteral stone with hydronephrosis.. Upon repeat evaluation patient reported some improvement after initial intervention. Given this patient is appropriate discharge with prescription for referral to urology, a prescription for tamsulosin with first dose given here and strict return precautions. Critical Care Critical Care Time Critical Care Time: No
--- NOTE | 2024-06-05 13:13 | CT_ITS ---
FINAL REPORT TECHNIQUE: Thin section axial images were obtained through the abdomen after intravenous contrast. Reconstruction images were obtained from the axial data. Exam was performed using dose reduction techniques. CLINICAL HISTORY: Left flank pain FINDINGS: There is a 4 mm right lower lobe nodule well-seen on image 7, series 3. The heart is mildly enlarged. The liver is homogeneous. The gallbladder is present. The right adrenal gland is normal. There is a small left adrenal nodule. The spleen and pancreas are unremarkable. There are bilateral renal cysts. There is an extrarenal pelvis of the right kidney. Abdominal GI tract is without acute abnormality. There is no abdominal lymphadenopathy or ascites. There is mild left hydronephrosis to the level of a 5 mm left ureteral stone at the level of the left iliac vessels. There is a moderate to large amount of retained stool throughout the colon. The uterus is present. The pelvic portions of the GI tract, including the appendix, are without acute abnormality. There is no pelvic lymphadenopathy or ascites. No acute osseous abnormalities identified. IMPRESSION: Mild left hydronephrosis secondary to a 5 mm left ureteral stone to the level of the left iliac vessels. Reviewed, Interpreted and Dictated by Angélica Nava MD Transcribed by Noemy Regalado Authenticated and . [facility]
--- NOTE | 2024-06-05 13:13 | CT_ITS ---
FINAL REPORT TECHNIQUE: Thin section axial images were obtained through the lumbar spine without contrast. Sagittal and coronal reconstruction images were obtained from the axial data. Exam was performed using dose reduction techniques. CLINICAL HISTORY: Left flank pain FINDINGS: There is levoscoliosis of the lumbar spine. No acute fracture is identified. There is grade 1 anterior spondylolisthesis of L4 on 5. There is multilevel degenerative disc disease, most pronounced at L4-5 and L5-S1 where there is canal stenosis and foraminal narrowing. Paraspinal soft tissues are within normal limits. There is no paraspinal mass or fluid collection. IMPRESSION: No acute abnormality of the lumbar spine. Scoliosis and degenerative disc disease, consider MRI if further evaluation is needed. Reviewed, Interpreted and Dictated by Angélica Nava MD Transcribed by Noemy Regalado Authenticated and [facility]
[2024-06-05] MEDS: LIDOCAINE 5% TRANSDERMAL PATCH 1 EACH TP (13:21)
[2024-06-05] MEDS: ACETAMINOPHEN 500MG TAB 1000 MG PO (13:21)
[2024-06-05 13:22] LABS: Albumin Level 4.8 g/dl (3.5-5.0); Chloride 103 mmol/L (98-107); Sodium 141 mmol/L (136-145)
[2024-06-05] MEDS: KETOROLAC 30MG/ML VIAL 15 MG IV (13:22)
[2024-06-05 13:24] LABS: Alanine Aminotransferase 28 U/L (12-78); Aspartate Amino Transferase 43 U/L (14-36); Blood Urea Nitrogen 14 mg/dl (7-17); Carbon Dioxide 31 mmol/L (22.0-30.0); Creatinine Clearance Estimated 38 mL/min (50-200); Estimated Glomerular Filt Rate 80 ml/min (>60); GFR (African American) 97 ML/MIN (>60)
[2024-06-05 13:25] LABS: Albumin/Globulin Ratio 1.7 (1.1-1.8); Alkaline Phosphatase 102 U/L (38-126); Bilirubin,Total 1.6 mg/dl (0.2-1.3); Calcium 9.8 mg/dl (8.4-10.2); Globulin 2.9 g/dL (1.3-3.2); Glucose 129 mg/dl (74-100); Total Protein,Serum 7.7 g/dl (6.3-8.2)
[2024-06-05 13:51] LABS: Procalcitonin < 0.030 ng/mL (0.0-2.0)
--- NOTE | 2024-06-05 13:53 | PC.NURSE ---
pt to CT via stretcher
[2024-06-05] MEDS: IOPAMIDOL-370 (76%);100ML BOTTLE 75 ML IV (14:01)
[2024-06-05] MEDS: SODIUM CHLORIDE 0.9% 10ML SYR (RAD ONLY) 10 ML IV (14:01)
[2024-06-05 14:09] LABS: Basophils % 0.3 % (0.1-2.0); Eosinophils % 0.2 % (0.1-12.0); Hematocrit 45.6 % (37.0-47.0); Hemoglobin 15.3 g/dL (12.2-16.2); Lymphocytes # 1.9 K/mm3 (0.7-4.5); Lymphocytes % 18.4 % (10-50); Mean Corpuscular HGB Conc 33.6 g/dL (31.8-35.4); Mean Corpuscular Hemoglobin 31.8 pg (27.0-31.2); Mean Corpuscular Volume 94.8 fl (81-99); Mean Platelet Volume 12.8 fl (7.4-10.4); Monocytes # 0.8 K/mm3 (0.1-1.0); Neutrophils # 7.6 K/mm3 (1.8-7.8); Neutrophils % 72.9 % (37.0-80.0); Platelet Count 146 K/mm3 (142-424); Red Blood Count 4.81 M/mm3 (4.20-5.40); White Blood Count 10.4 K/mm3 (4.8-10.8)
[2024-06-05] MEDS: METHOCARBAMOL 500MG TABLET 500 MG PO (14:12)
[2024-06-05 14:30] VITALS: BP 163/81; PULSE 70; O2SAT 97
[2024-06-05 15:00] VITALS: BP 150/83; PULSE 66; O2SAT 99
[2024-06-05 15:18] LABS: Microscopic, Urine URINE MICROSCOPIC (MICROSCOPIC)
[2024-06-05 15:21] LABS: Appearance,Urine CLEAR (Clear); Bilirubin,Urine Negative (Negative); Blood, Urine TRACE-I (Negative); Color,Urine YELLOW (Yellow); Glucose,Urine (UA) Negative (Negative); Ketones,Urine Negative (Negative); Leukocyte Esterase,Urine Negative (Negative); Nitrate,Urine Negative (Negative); Protein,Urine Negative (Negative); Urobilinogen,Urine 0.2 EU/dl (0.2)
[2024-06-05 15:30] VITALS: BP 163/81; PULSE 60; O2SAT 99
[2024-06-05] MEDS: TAMSULOSIN 0.4MG CAPSULE 0.4 MG PO (15:41)
[2024-06-05 15:45] LABS: WBC,Urine Occasional #/hpf (0-3)
[2024-06-05 16:00] VITALS: BP 163/71; PULSE 68; RESP 16; TEMP 36.6; O2SAT 97
== END 2024-06-05 16:01 | disposition home or self-care (01) ==
PROVIDERS: Physician Assistant; Emergency Provider Student in an Organized Health Care Education/Training Program; PCP Family Medicine
DX: N20.1 Calculus of ureter (principal); M54.50 Low back pain, unspecified; M25.552 Pain in left hip
CPT/HCPCS: 72131; 74177; 80053; 81001; 84145; 85025; 96374; 99285; J1885; Q9967